=== PATIENT | female | born 1950 | race Caucasian/White ===

== ENCOUNTER 2018-02-13 09:52 | Emergency (ER) | payer BC, OTHER ==
--- NOTE | 2018-02-13 12:57 | ER ---
Nurse's Notes [facility] Name: Jayda Hernandez Age: 68 yrs Sex: Female : 1950 Arrival Date: 02/13/2018 Time: 09:54 Bed 24 Private MD: Dylon Wagner R Diagnosis: Acute upper respiratory infection, unspecified Presentation: 02/13 10:30 Presenting complaint: Patient states: Right ear pain, coughing, sneezing since Sunday aj1 Denies N/V/D. Transition of care: patient was not received from another setting of care. Onset of symptoms was February 11, 2018. Risk Assessment: Do you want to hurt yourself or someone else? Patient reports no desire to harm self or others. Initial Sepsis Screen: Does the patient meet any 2 criteria? No. Patient's initial sepsis screen is negative. Does the patient have a suspected source of infection? No. Patient's initial sepsis screen is negative. Care prior to arrival: None. 10:30 Method Of Arrival: Ambulatory aj1 10:30 Acuity: MACHO 4 aj1 Triage Assessment: 10:31 General: Appears in no apparent distress. comfortable, Behavior is calm, cooperative, aj1 appropriate for age. Pain: Complains of pain in right ear. Pain: Pain currently is 7 out of 10 on a pain scale. EENT: Reports ear pain. Neuro: Level of Consciousness is awake, alert, obeys commands. Cardiovascular: Patient's skin is warm and dry. Respiratory: Airway is patent Respiratory effort is even, unlabored, Respiratory pattern is regular, symmetrical. Historical: - Allergies: 10:31 erythromycin base; aj1 10:31 PENICILLINS; aj1 - Home Meds: 13:11 valsartan Oral [Active]; tl3 - PMHx: 10:31 Hypertension; aj1 - PSHx: 13:11 Cholecystectomy; Hysterectomy; cataract; tl3 - Immunization history:: Adult Immunizations unknown. - Social history:: Smoking status: unknown. - Ebola Screening: : No symptoms or risks identified at this time. Screenin:24 Abuse screen: Denies threats or abuse. Denies injuries from another. Nutritional sg screening: No deficits noted. Tuberculosis screening: No symptoms or risk factors identified. Never had TB. Fall Risk None identified. Assessment: 12:24 General: Appears in no apparent distress. comfortable, well groomed, well developed, sg well nourished, Behavior is calm, cooperative, appropriate for age. Pain: Complains of pain in right ear, sore throat Quality of pain is described as aching. Neuro: No deficits noted. Cardiovascular: Capillary refill is brisk in bilateral fingers Patient's skin is warm and dry. Chest pain is denied. Respiratory: Airway is patent Respiratory effort is even, unlabored, Respiratory pattern is regular, symmetrical, Breath sounds are clear. GI: No signs and/or symptoms were reported involving the gastrointestinal system. : No signs and/or symptoms were reported regarding the genitourinary system. EENT: Ear canal clear on right ear and left ear Nares are clear bilaterally Oral mucosa is moist. Throat is pink. Derm: Skin is pink, warm \T\ dry. Musculoskeletal: No signs and/or symptoms reported regarding the musculoskeletal system. Vital Signs: 10:31 BP 135 / 71; Pulse 75; Resp 18; Temp 99.4(O); Pulse Ox 97% ; Weight 63.5 kg (R); Height aj1 5 ft. 2 in. (157.48 cm) (R); Pain 7/10; 13:12 BP 138 / 82; Pulse 67; Resp 18; Pulse Ox 98% ; tl3 10:31 Body Mass Index 25.61 (63.50 kg, 157.48 cm) aj1 ED Course: 09:54 Patient arrived in ED. mr 09:54 Dylon Wagner MD is Private Physician. mr 10:31 Triage completed. aj1 10:31 Arm band placed on Patient placed in waiting room. aj1 11:35 David Crespo PA is PHCP. cp 11:35 Puma John MD is Attending Physician. cp 11:41 Luciano Blackwood LVN is Primary Nurse. em 12:02 Primary Nurse role handed off by Luciano Blackwood LVN sg 12:02 Carlos Ziegler, CAMILO is Primary Nurse. sg 12:15 Flu and/or RSV swab sent to lab. Strep swab sent to lab. sg 12:56 Dylon Wagner MD is Referral Physician. cp 13:10 No provider procedures requiring assistance completed. Patient did not have IV access tl3 during this emergency room visit. 13:11 Patient has correct armband on for positive identification. tl3 Administered Medications: No medications were administered Outcome: 12:57 Discharge ordered by . chaka 13:09 Discharged to home ambulatory. tl3 13:09 Condition: stable 13:09 Discharge instructions given to patient, Instructed on discharge instructions, follow up and referral plans. medication usage, good handwashing, fluid intake and fever control Demonstrated understanding of instructions, follow-up care, medications, Prescriptions given X 1. 13:12 Patient left the ED. tl3 Signatures: Gertrude Last RN RN aj1 Carlos Ziegler RN Mary Jo Horvath Edgar, CALL PERSON CALL PERSON David Harding, Courtney Soto cp, RN RN tl3
--- NOTE | 2018-02-13 12:58 | EDPHYS ---
Physician Documentation [facility] Name: Jayda Hernandez Age: 68 yrs Sex: Female : 1950 Arrival Date: 02/13/2018 Time: 09:54 Bed 24 Private MD: Dylon Wagner R ED Physician Puma John HPI: 02/13 12:10 This 68 yrs old Female presents to ER via Ambulatory with complaints of cp Cough, Ear Pain. 12:10 The patient or guardian reports cough, that is intermittent. Onset: The cp symptoms/episode began/occurred 2 day(s) ago. Severity of symptoms: in the emergency department the symptoms are unchanged, despite home interventions. Associated signs and symptoms: Pertinent positives: earache, sore throat, Pertinent negatives: chest pain, diarrhea, fever, vomiting. Historical: - Allergies: 10:31 erythromycin base; aj1 10:31 PENICILLINS; aj1 - Home Meds: 13:11 valsartan Oral [Active]; tl3 - PMHx: 10:31 Hypertension; aj1 - PSHx: 13:11 Cholecystectomy; Hysterectomy; cataract; tl3 - Immunization history:: Adult Immunizations unknown. - Social history:: Smoking status: unknown. - Ebola Screening: : No symptoms or risks identified at this time. ROS: 12:15 Constitutional: Negative for body aches, chills, fever, poor PO intake. cp 12:15 Eyes: Negative for injury, pain, redness, and discharge. cp 12:15 ENT: Positive for ear pain, sore throat, Negative for drainage from ear(s), sinus congestion, sinus pain, difficulty swallowing, difficulty handling secretions. 12:15 Respiratory: Positive for cough, with no reported sputum, Negative for shortness of breath, wheezing. 12:15 Abdomen/GI: Negative for abdominal pain, vomiting, diarrhea, constipation. 12:15 Skin: Negative for cellulitis, rash. 12:15 Neuro: Negative for dizziness, headache, weakness. 12:15 All other systems are negative. Exam: 12:20 Constitutional: The patient appears in no acute distress, alert, awake, non-toxic, well cp developed, well nourished. 12:20 Head/Face: Normocephalic, atraumatic. cp 12:20 Eyes: Periorbital structures: appear normal, Conjunctiva: normal, no exudate, no injection, Sclera: no appreciated abnormality, Lids and lashes: appear normal, bilaterally. 12:20 ENT: External ear(s): are unremarkable, Ear canal(s): are normal, clear, TM's: bulging, is not appreciated, bilaterally, dullness, bilaterally, erythema, is not appreciated, bilaterally, Nose: is normal, Mouth: Lips: moist, Oral mucosa: pink and intact, moist, Posterior pharynx: Airway: no evidence of obstruction, patent, Tonsils: are normal in appearance, Uvula: midline, swelling, is not appreciated, erythema, that is mild, exudate, is not appreciated. 12:20 Neck: ROM/movement: is normal, is supple, without pain, no range of motions limitations, no meningismus, no nuchal rigidity. 12:20 Chest/axilla: Inspection: normal, Palpation: is normal, no crepitus, no tenderness. 12:20 Cardiovascular: Rate: normal, Rhythm: regular. 12:20 Respiratory: the patient does not display signs of respiratory distress, Respirations: normal, no use of accessory muscles, no retractions, no splinting, no tachypnea, labored breathing, is not present, Breath sounds: are clear throughout, no decreased breath sounds, no stridor, no wheezing. 12:20 Abdomen/GI: Exam negative for discomfort, distension, guarding, Inspection: abdomen appears normal. 12:20 Skin: cellulitis, is not appreciated, no rash present. Vital Signs: 10:31 BP 135 / 71; Pulse 75; Resp 18; Temp 99.4(O); Pulse Ox 97% ; Weight 63.5 kg (R); Height aj1 5 ft. 2 in. (157.48 cm) (R); Pain 7/10; 13:12 BP 138 / 82; Pulse 67; Resp 18; Pulse Ox 98% ; tl3 10:31 Body Mass Index 25.61 (63.50 kg, 157.48 cm) aj1 MDM: 11:35 Patient medically screened. cp 12:30 Differential Diagnosis: Bronchitis Influenza Upper Respiratory Infection Sinusitis cp Pharyngitis Pneumonia. 12:55 Data reviewed: vital signs, nurses notes, lab test result(s), and as a result, I will cp discharge patient. 12:55 Counseling: I had a detailed discussion with the patient and/or guardian regarding: the cp historical points, exam findings, and any diagnostic results supporting the discharge/admit diagnosis, lab results, to return to the emergency department if symptoms worsen or persist or if there are any questions or concerns that arise at home. Special discussion: I discussed with the patient/guardian that the patient's current presentation does not indicate dosing of antibiotics. They should follow-up with their primary care provider and return if the symptoms persist or progress. 02/13 12:04 Order name: Influenza Screen (a \T\ B); Complete Time: 12:50 cp 02/13 12:50 Interpretation: Reviewed. cp 02/13 12:04 Order name: Strep; Complete Time: 12:40 cp 02/13 12:40 Interpretation: Reviewed. cp 02/13 12:35 Order name: Throat Culture EDMS Administered Medications: No medications were administered Disposition: 02/14 09:32 Co-signature as Attending Physician, Puma John MD I agree with the assessment and kdr plan of care. Disposition: 02/13/18 12:57 Discharged to Home. Impression: Acute upper respiratory infection, unspecified. - Condition is Stable. - Discharge Instructions: Upper Respiratory Infection, Adult. - Prescriptions for Tessalon Perles 100 mg Oral Capsule - take 1 capsule by ORAL route every 8 hours As needed; 15 capsule. - Medication Reconciliation Form, Thank You Letter, Antibiotic Education, Prescription Opioid Use form. - Follow up: Dylon Wagner MD; When: 2 - 3 days; Reason: Recheck today's complaints. - Problem is new. - Symptoms have improved. Signatures: Dispatcher [employer] EDMS Gertrude Last RN RN aj1 Puma John MD MD [facility] David Crespo PA PA cp Courtney Jacob RN RN tl3 Corrections: (The following items were deleted from the chart) 02/13 13:12 12:57 02/13/2018 12:57 Discharged to Home. Impression: Acute upper respiratory tl3 infection, unspecified. Condition is Stable. Forms are Medication Reconciliation Form, Thank You Letter, Antibiotic Education, Prescription Opioid Use. Follow up: Dylon Wagner; When: 2 - 3 days; Reason: Recheck today's complaints. Problem is new. Symptoms have improved. cp
[2018-02-13 13:20] VITALS: TEMP 99.4
[2018-02-13 13:21] VITALS: BP 138/82; O2SAT 98
== END 2018-02-13 13:12 | disposition home or self-care (01) ==
LOC: ER 09:52
DX: J06.9 Acute upper respiratory infection, unspecified (principal); I10 Essential (primary) hypertension; Z79.899 Other long term (current) drug therapy
CPT/HCPCS: 87070; 87081; 87804; 99283

== ENCOUNTER 2018-06-22 15:30 | Emergency (ER) | payer BC, OTHER ==
--- NOTE | 2018-06-22 16:17 | RAD REPORT ---
EXAM DESCRIPTION: Damien Moffett (2 Views)06/22/2018 4:08 pm CLINICAL HISTORY: Cough COMPARISON: 2017 FINDINGS: The lungs appear clear of acute infiltrate. The heart is mildly to moderately enlarged IMPRESSION: No acute abnormalities displayed
--- NOTE | 2018-06-22 16:27 | EDPHYS ---
Physician Documentation [facility] Name: Jayda Hernandez Age: 68 yrs Sex: Female : 1950 Arrival Date: 06/22/2018 Time: 15:32 Bed 13 Private MD: ED Physician Rohan Macias HPI: 06/22 15:49 This 68 yrs old Female presents to ER via Ambulatory with complaints of Cough.[facility] 15:49 The patient or guardian reports cough. Onset: The symptoms/episode began/occurred jmm gradually, 1 week(s) ago. This is a 68 year old female with a history of htn that presents to the ED with complaints of cough, sore throat, right sided ear ache. Patient states symptoms began 1 week ago. Patient is currently taking robitussin with no relief of cough. Patient denies fever. . Historical: - Allergies: 15:43 erythromycin base; sg 15:43 PENICILLINS; sg - Home Meds: 15:45 valsartan Oral [Active]; Mucinex DM oral oral [Active]; rb1 - PMHx: 15:43 Hypertension; sg - PSHx: 15:43 Cholecystectomy; Hysterectomy; cataract; sg - Immunization history:: Adult Immunizations up to date. - Social history:: Smoking status: Patient/guardian denies using tobacco. - Ebola Screening: : Patient negative for fever greater than or equal to 101.5 degrees Fahrenheit, and additional compatible Ebola Virus Disease symptoms Patient denies exposure to infectious person Patient denies travel to an Ebola-affected area in the 21 days before illness onset No symptoms or risks identified at this time. ROS: 15:49 Constitutional: Negative for fever, chills, and weight loss. jmm 15:49 ENT: Positive for ear pain, sore throat. 15:49 Respiratory: Positive for cough. 15:49 All other systems are negative. Exam: 15:49 Constitutional: This is a well developed, well nourished patient who is awake, alert, jmm and in no acute distress. Head/Face: atraumatic. Eyes: EOMI, no conjunctival erythema appreciated ENT: Moist Mucus Membranes Neck: Trachea midline, Supple Chest/axilla: Normal chest wall appearance and motion. Cardiovascular: Regular rate and rhythm. No edema appreciated 15:49 Abdomen/GI: Non distended, soft Back: Normal ROM Skin: General appearance color normal MS/ Extremity: Moves all extremities, no obvious deformities appreciated, no edema noted to the lower extremities Neuro: Awake and alert, normal gait Psych: Behavior is normal, Mood is normal, Patient is cooperative and pleasant 15:49 Respiratory: the patient does not display signs of respiratory distress, Respirations: normal, Breath sounds: are clear throughout. Vital Signs: 15:48 BP 162 / 67; Pulse 97; Resp 16 S; Temp 97.7; Pulse Ox 94% on R/A; Weight 79.83 kg; sg 16:35 BP 158 / 73; Pulse 89; Resp 17; Temp 97.9(O); Pulse Ox 96% on R/A; Pain 0/10; rb1 MDM: 15:49 Patient medically screened. [facility] 16:26 Data reviewed: vital signs, nurses notes. Counseling: I had a detailed discussion with [facility] the patient and/or guardian regarding: the historical points, exam findings, and any diagnostic results supporting the discharge/admit diagnosis, radiology results, the need for outpatient follow up, to return to the emergency department if symptoms worsen or persist or if there are any questions or concerns that arise at home. 16:26 ED course: Patient is alert and non toxic in appearance in the ED. No signs of resp [facility] distress appreciated. patient prescribed oral steroids and advised to follow up with Dr. Wagner next week for reevaluation. Patient understood and agrees with the plan of care. . 06/22 15:49 Order name: Chest Pa And Lat (2 Views) XRAY; Complete Time: 16:22 [facility] Administered Medications: No medications were administered Disposition: 22:12 Co-signature as Attending Physician, Rohan Macias MD Available for consultation at ps1 all times . Disposition: 06/22/18 16:26 Discharged to Home. Impression: Acute bronchitis. - Condition is Stable. - Discharge Instructions: Acute Bronchitis, Adult. - Prescriptions for Prednisone 20 mg Oral Tablet - take 3 tablet by ORAL route once daily for 5 days; 15 tablet. Albuterol Sulfate 90 mcg/actuation - inhale 1-2 puff by INHALATION route every 4-6 hours; 1 Inhaler. - Medication Reconciliation Form, Thank You Letter, Antibiotic Education, Prescription Opioid Use form. - Follow up: Private Physician; When: 2 - 3 days; Reason: Recheck today's complaints, Continuance of care, Re-evaluation by your physician. Signatures: Dispatcher [employer] EDCarlos Esqueda, RN RN sg Jw Abreu PA PA jmm Barber, Rebecca, RN RN rb1 Rohan Macias MD MD ps1 Corrections: (The following items were deleted from the chart) 16:43 16:26 06/22/2018 16:26 Discharged to Home. Impression: Acute bronchitis. Condition is rb1 Stable. Forms are Medication Reconciliation Form, Thank You Letter, Antibiotic Education, Prescription Opioid Use. Follow up: Private Physician; When: 2 - 3 days; Reason: Recheck today's complaints, Continuance of care, Re-evaluation by your physician. shandra
--- NOTE | 2018-06-22 16:27 | ER ---
Nurse's Notes [facility] Name: Jayda Hernandez Age: 68 yrs Sex: Female : 1950 Arrival Date: 06/22/2018 Time: 15:32 Bed 13 Private MD: Diagnosis: Acute bronchitis Presentation: 06/22 15:41 Presenting complaint: Patient states: Preethi had this sinus congestion and nasal drainage sg for going on a week or two now, reports having been seen by and given robitussin DM, took for three days with now changes, stopped taking that and took Mucinex DM for a day, just not getting any better, I think it may be a bronchitis or strep throat or something, Im pretty sure its not the flu. Transition of care: patient was not received from another setting of care. Onset of symptoms was June 22, 2018. Risk Assessment: Do you want to hurt yourself or someone else? Patient reports no desire to harm self or others. Initial Sepsis Screen: Does the patient meet any 2 criteria? No. Patient's initial sepsis screen is negative. Does the patient have a suspected source of infection? No. Patient's initial sepsis screen is negative. Care prior to arrival: None. 15:41 Method Of Arrival: Ambulatory sg 15:41 Acuity: MACHO 4 sg Historical: - Allergies: 15:43 erythromycin base; sg 15:43 PENICILLINS; sg - Home Meds: 15:45 valsartan Oral [Active]; Mucinex DM oral oral [Active]; rb1 - PMHx: 15:43 Hypertension; sg - PSHx: 15:43 Cholecystectomy; Hysterectomy; cataract; sg - Immunization history:: Adult Immunizations up to date. - Social history:: Smoking status: Patient/guardian denies using tobacco. - Ebola Screening: : Patient negative for fever greater than or equal to 101.5 degrees Fahrenheit, and additional compatible Ebola Virus Disease symptoms Patient denies exposure to infectious person Patient denies travel to an Ebola-affected area in the 21 days before illness onset No symptoms or risks identified at this time. Screenin:40 Abuse screen: Denies threats or abuse. Nutritional screening: No deficits noted. rb1 Tuberculosis screening: No symptoms or risk factors identified. Fall Risk None identified. Assessment: 15:40 General: Appears uncomfortable, Behavior is calm, cooperative, Denies fever. Pain: rb1 Denies pain. Neuro: Level of Consciousness is awake, alert, obeys commands, Oriented to person, place, time, situation. Cardiovascular: Capillary refill < 3 seconds is brisk in bilateral fingers. Respiratory: Reports cough that is productive, clear sputum Airway is patent Respiratory effort is even, unlabored, Respiratory pattern is regular, symmetrical. GI: No signs and/or symptoms were reported involving the gastrointestinal system. : No signs and/or symptoms were reported regarding the genitourinary system. 15:40 EENT: Reports nasal congestion right ear feels like it is draining.. Derm: Skin is rb1 pink, warm \T\ dry. 16:05 Reassessment: Pt. went to X-ray. rb1 16:35 Reassessment: Patient appears in no apparent distress at this time. No changes from rb1 previously documented assessment. Vital Signs: 15:48 BP 162 / 67; Pulse 97; Resp 16 S; Temp 97.7; Pulse Ox 94% on R/A; Weight 79.83 kg; sg 16:35 BP 158 / 73; Pulse 89; Resp 17; Temp 97.9(O); Pulse Ox 96% on R/A; Pain 0/10; rb1 ED Course: 15:32 Patient arrived in ED. as 15:39 Jw Abreu PA is PHCP. [facility] 15:39 Rohan Macias MD is Attending Physician. m 15:40 Patient has correct armband on for positive identification. Bed in low position. Call rb1 light in reach. Side rails up X 1. Pulse ox on. NIBP on. 15:43 Triage completed. sg 15:43 Arm band placed on. sg 15:58 Ciera Faulkner, RN is Primary Nurse. rb1 16:08 Chest Pa And Lat (2 Views) XRAY In Process Unspecified. EDMS 16:43 No provider procedures requiring assistance completed. Patient did not have IV access rb1 during this emergency room visit. Administered Medications: No medications were administered Outcome: 16:26 Discharge ordered by . [facility] 16:43 Patient left the ED. rb1 16:43 Discharged to home ambulatory. rb1 16:43 Condition: stable 16:43 Discharge instructions given to patient, Instructed on discharge instructions, follow up and referral plans. medication usage, Demonstrated understanding of instructions, follow-up care, medications, Prescriptions given X 2. Signatures: Dispatcher [employer] Carlos Tang RN RN sg Jw Abreu PA PA jmm Martinez, Amelia as Barber, Rebecca, RN RN rb1
[2018-06-22 16:48] VITALS: BP 162/67; TEMP 97.7; O2SAT 94
== END 2018-06-22 16:43 | disposition home or self-care (01) ==
LOC: ER 15:30
DX: J20.9 Acute bronchitis, unspecified (principal); I10 Essential (primary) hypertension; Z88.1 Allergy status to other antibiotic agents; Z88.0 Allergy status to penicillin
CPT/HCPCS: 71046; 99283

== ENCOUNTER 2019-06-14 10:54 | Emergency (ER) | payer BC, OTHER ==
--- OUTSIDE RECORDS SUMMARY | 2019-06-14 10:57 | XMS REPORT ---
:1950 Author Organization [employer] Care Team Providers Name Role Phone Denita Oscar Provider Role Unavailable Allergies, Adverse Reactions, Alerts Substance Reaction Event Type penicillin Info Not Available Drug Allergy Erythromycin Info Not Available Drug Allergy Problems Problem Type Condition Code Onset Dates Condition Statu s Problem Encounter for screening mammogram Z12.31 Active for breast cancer Problem Encounter for gynecological Z01.419 Active examination without abnormal finding Assessment Mixed incontinence N39.46 Active Assessment UTI (lower urinary tract infection) N39.0 Active Problem Adhesive capsulitis of right M75.01 Active shoulder Problem Lateral epicondylitis, right elbow M77.11 Active Problem Mixed incontinence N39.46 Active Problem History of hysterectomy for benign Z90.710 Active disease Problem 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
--- OUTSIDE RECORDS SUMMARY | 2019-06-14 10:57 | XMS REPORT ---
:1950 Author Organization [facility] t Address [address] [place] [address] Care Team Providers Name Role Phone Unavailable Unavailable Unavailable Problems Condition Condition Condition Status Onset Resolution Last Treatin g Comments Name Details Category Date Date Treatment Clinician Date Encounter Encounter Problem Active for for screening screening mammogram mammogram for breast for breast cancer cancer Encounter Encounter Problem Active for for gynecologic gynecologic al al examination examination without without abnormal abnormal finding finding Mixed Mixed Problem Active incontinenc incontinenc e e Adhesive Adhesive Problem Active capsulitis capsulitis of right of right shoulder shoulder Lateral Lateral Problem Active epicondylit epicondylit is, right is, right elbow elbow History of History of Problem Active hysterectom hysterectom y for y for benign benign disease disease Postmenopau Postmenopau Problem Active angelina angelina atrophic atrophic vaginitis vaginitis Pain in Pain in Problem Active joint of joint of right elbow right elbow Calcific Calcific Problem Active tendinitis tendinitis of right of right elbow elbow Allergies, Adverse Reactions, Alerts Allergy Name Allergy Status Severity Reaction(s) Onset Inactive Treat ing Comments Type Date Date Clinician penicillin Adverse Active Info Not Reaction Available Erythromycin Adverse Active Info Not Reaction Available Medications Ordered Filled Start Stop Current Ordering Indication Dosage Frequency Signature Comments Components Medication Medication Date Date Medication? Clinician (SIG) Name Name Clobex Clobex 2018-02 2019- No Denita 1 04-07 Celestina applicatio 00:00: 00:00 n 00 :00 Encounters Start End Encounter Admission Attending Care Care Encounter Date/Time Date/Time Type Type Clinicians Facility Department ID 2019-02-04 2019-02-04 Outpatient Linda Lizarragat [id number] 08:48:00 08:48:00 Specialty/U [facility] 2019-01-30 2019-01-30 Outpatient Ziat Ziat [id number] 09:26:00 09:26:00 Specialty/U Special[facility] 2019 2019 [place] [place] [id number] 09:47:00 09:47:00 Specialty/U Specialty[facility] 2019-01-27 2019-01-27 [place] 2 [id number] 10:30:00 10:30:00 Specialty/U Specialty/U [facility] Clinic
--- OUTSIDE RECORDS SUMMARY | 2019-06-14 10:57 | XMS REPORT ---
:1950 Author Organization [employer] Care Team Providers Name Role Phone Celestina Denita Provider Role Unavailable Allergies No Known Allergies Problems Problem Type Condition Code Onset Dates Condition Statu s Problem Encounter for screening mammogram Z12.31 Active for breast cancer Problem Encounter for gynecological Z01.419 Active examination without abnormal finding Problem Adhesive capsulitis of right M75.01 Active shoulder Problem Lateral epicondylitis, right elbow M77.11 Active Problem Mixed incontinence N39.46 Active Problem History of hysterectomy for benign Z90.710 Active disease Problem 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
--- OUTSIDE RECORDS SUMMARY | 2019-06-14 10:57 | XMS REPORT ---
:1950 Author Organization [employer] Care Team Providers Name Role Phone Denita Oscar Provider Role Unavailable Allergies No Known Allergies [...] Medications Medication Code Code Instructions Start End Status Dosage System Date Date Clobex [facility] [id number] 0.05 % Feb 04, Feb 14, Active 1 applicatio n Externally Twice 2018 2018 a day Results No Known Results Summary Purpose [employer] Submission
--- NOTE | 2019-06-14 12:10 | EDPHYS ---
Physician Documentation [facility] Name: Jayda Hernandez Age: 69 yrs Sex: Female : 1950 Arrival Date: 06/14/2019 Time: 11:02 Bed 13 Private MD: Dylon Wagner R ED Physician David Jacobson HPI: 06/13 12:18 This 69 yrs old Female presents to ER via Ambulatory with complaints of Ear la1 Pain. 12:18 The patient presents with pain. The complaints affect the right ear and left ear. la1 Onset: The symptoms/episode began/occurred 2 month(s) ago. Modifying factors: The symptoms are alleviated by nothing, the symptoms are aggravated by nothing. Associated signs and symptoms: Pertinent negatives: fever, lightheadedness, sore throat, tinnitus, vertigo, vomiting. Severity of symptoms: At their worst the symptoms were very mild. The patient has experienced a previous episode. pt reports that for the last 2 months she occasionally gets HERVE ear pain and a pain in the back of her head, was seen by PCP and told that she did not have infection. Pt reports she does not have the pain at this time and the pain is not severe, denies any other symptoms. . Historical: - Allergies: 11:26 erythromycin base; hb 11:26 PENICILLINS; hb - Home Meds: 11:26 Mucinex DM Oral [Active]; valsartan Oral [Active]; hb - PMHx: 11:26 Hypertension; hb - PSHx: 11:26 Cholecystectomy; Hysterectomy; cataract; hb - Immunization history:: Adult Immunizations up to date. - Social history:: Smoking status: Patient denies any tobacco usage or history of. ROS: 12:20 Constitutional: Negative for fever, chills, and weight loss, Eyes: Negative for injury, la1 pain, redness, and discharge. 12:20 Neck: Negative for injury, pain, and swelling, Cardiovascular: Negative for chest pain, palpitations, and edema, Respiratory: Negative for shortness of breath, cough, wheezing, and pleuritic chest pain, Abdomen/GI: Negative for abdominal pain, nausea, vomiting, diarrhea, and constipation, Back: Negative for injury and pain, MS/Extremity: Negative for injury and deformity, Skin: Negative for injury, rash, and discoloration. 12:20 ENT: Positive for HERVE ear pain, pain to back of head. 12:20 Neuro: Negative for altered mental status, dizziness, gait disturbance, hearing loss, loss of consciousness, numbness, seizure activity, speech changes, syncope, near syncope, tingling, tinnitus, tremor, visual changes, weakness, acute changes. Exam: 12:21 Constitutional: This is a well developed, well nourished patient who is awake, alert, la1 and in no acute distress. Head/Face: Normocephalic, atraumatic. Eyes: Pupils equal round and reactive to light, extra-ocular motions intact. Lids and lashes normal. Conjunctiva and sclera are non-icteric and not injected. ENT: Nares patent. No nasal discharge, no septal abnormalities noted. Tympanic membranes are normal and external auditory canals are clear. Oropharynx with no redness, swelling, or masses, exudates, or evidence of obstruction, uvula midline. Mucous membranes moist. Neck: Trachea midline Cardiovascular: Regular rate and rhythm with a normal S1 and S2. Respiratory: Lungs have equal breath sounds bilaterally, clear to auscultation Skin: Warm, dry with normal turgor. Neuro: Awake and alert, GCS 15, oriented to person, place, time, and situation. Cranial nerves II-XII grossly intact. Motor strength 5/5 in all extremities. Sensory grossly intact. Cerebellar exam normal. Normal gait. Vital Signs: 11:21 BP 137 / 79; Pulse 76; Resp 16; Temp 97.9; Pulse Ox 100% on R/A; Weight 71.21 kg; hb Height 5 ft. 2 in. (157.48 cm); Pain 0/10; 11:21 Body Mass Index 28.72 (71.21 kg, 157.48 cm) hb MDM: 11:37 Patient medically screened. [facility] 12:21 Data reviewed: vital signs, nurses notes, and as a result, I will discharge patient. la1 Data interpreted: Pulse oximetry: on room air is 100 %. Interpretation: normal. Counseling: I had a detailed discussion with the patient and/or guardian regarding: the need for outpatient follow up, a family practitioner, to return to the emergency department if symptoms worsen or persist or if there are any questions or concerns that arise at home. Special discussion: I discussed with the patient/guardian that the patient's current presentation does not indicate dosing of antibiotics. They should follow-up with their primary care provider and return if the symptoms persist or progress. ED course: no signs of infection on exam, pt not having the ear pain or GALLO at this time, no abnormal neurological findings on exam. Pt to FU with PCP. Administered Medications: No medications were administered Disposition: 06/14/19 12:09 Discharged to Home. Impression: Person with feared health complaint in whom no diagnosis is made. - Condition is Stable. - Discharge Instructions: General Headache Without Cause. - Medication Reconciliation Form, Thank You Letter form. - Follow up: Private Physician; When: 5 - 6 days; Reason: Recheck today's complaints, Continuance of care, Re-evaluation by your physician. Follow up: Emergency Department; When: As needed; Reason: Worsening of condition. - Problem is new. - Symptoms are unchanged. - Notes: Please follow up with your primary care doctor, you may need to see a specialist for your ear pain. Addendum: 06/16/2019 09:54 Co-signature as Attending Physician, David Jacobson MD I agree with the assessment and c gallo plan of care. Signatures: David Jacobson MD MD cha Attema, Lee, ANIMAL RESCUER-C ANIMAL RESCUER-Cla1 Yessy Phillip RN RN Patricia Vora RN RN ll1 Corrections: (The following items were deleted from the chart) 06/13 12:27 12:09 06/14/2019 12:09 Discharged to Home. Impression: Person with feared health ll1 complaint in whom no diagnosis is made. Condition is Stable. Forms are Medication Reconciliation Form, Thank You Letter, Antibiotic Education, Prescription Opioid Use. Follow up: Private Physician; When: 5 - 6 days; Reason: Recheck today's complaints, Continuance of care, Re-evaluation by your physician. Follow up: Emergency Department; When: As needed; Reason: Worsening of condition. Problem is new. Symptoms are unchanged. la1
--- NOTE | 2019-06-14 12:10 | ER ---
Nurse's Notes [facility] Name: Jayda Hernandez Age: 69 yrs Sex: Female : 1950 Arrival Date: 06/14/2019 Time: 11:02 Bed 13 Private MD: Dylon Wagner R Diagnosis: Person with feared health complaint in whom no diagnosis is made Presentation: 06/13 11:21 Chief complaint: Intermittent bilateral ear pain and 'head tenderness in the back of hb the head" x 2 weeks. Coronavirus screen: Proceed with normal triage. Ebola Screen: No symptoms or risks identified at this time. Initial Sepsis Screen: Does the patient meet any 2 criteria? No. Patient's initial sepsis screen is negative. Does the patient have a suspected source of infection? No. Patient's initial sepsis screen is negative. Risk Assessment: Do you want to hurt yourself or someone else? Patient reports no desire to harm self or others. Onset of symptoms was June 03, 2019. 11:21 Method Of Arrival: Ambulatory hb 11:21 Acuity: MACHO 4 hb Triage Assessment: 11:47 General: Appears in no apparent distress. Behavior is calm, cooperative. Pain: Denies hb pain. EENT: Reports intermittent bilateral ear pain. Neuro: Level of Consciousness is awake, alert, obeys commands, Oriented to person, place, time, situation. Cardiovascular: Capillary refill < 3 seconds Patient's skin is warm and dry. Respiratory: Airway is patent Respiratory effort is even, unlabored, Respiratory pattern is regular, symmetrical. GI: No signs and/or symptoms were reported involving the gastrointestinal system. : No signs and/or symptoms were reported regarding the genitourinary system. Derm: Skin is pink, warm \\T\\ dry. Musculoskeletal: No signs and/or symptoms reported regarding the musculoskeletal system. Historical: - Allergies: 11:26 erythromycin base; hb 11:26 PENICILLINS; hb - Home Meds: 11:26 Mucinex DM Oral [Active]; valsartan Oral [Active]; hb - PMHx: 11:26 Hypertension; hb - PSHx: 11:26 Cholecystectomy; Hysterectomy; cataract; hb - Immunization history:: Adult Immunizations up to date. - Social history:: Smoking status: Patient denies any tobacco usage or history of. Screenin:48 Abuse screen: Denies threats or abuse. Denies injuries from another. Nutritional hb screening: No deficits noted. Tuberculosis screening: No symptoms or risk factors identified. Fall Risk None identified. Assessment: 11:48 General: see triage assessment. hb 12:27 Pain: Denies pain. Neuro: Reports headache tenderness to right side of head. ll1 Vital Signs: 11:21 BP 137 / 79; Pulse 76; Resp 16; Temp 97.9; Pulse Ox 100% on R/A; Weight 71.21 kg; hb Height 5 ft. 2 in. (157.48 cm); Pain 0/10; 11:21 Body Mass Index 28.72 (71.21 kg, 157.48 cm) hb ED Course: 11:02 Patient arrived in ED. am2 11:02 Dylon Wagner MD is Private Physician. am2 11:22 Triage completed. hb 11:26 Arm band placed on. hb 11:28 Roberto Mcclure FNP-C [facility]. la1 11:28 David Jacobson MD is Attending Physician. la1 11:47 Patricia Vora, CAMILO is Primary Nurse. ll1 11:48 Patient has correct armband on for positive identification. Call light in reach. Side hb rails up X 1. 12:26 No provider procedures requiring assistance completed. Patient did not have IV access ll1 during this emergency room visit. Administered Medications: No medications were administered Outcome: 12:09 Discharge ordered by . la1 12:26 Discharged to home ambulatory. ll1 12:26 Condition: stable 12:26 Discharge instructions given to patient, Instructed on discharge instructions, follow up and referral plans. Demonstrated understanding of instructions, follow-up care. 12:27 Patient left the ED. ll1 Signatures: Roberto Mcclure FNP-C FNP-Cla1 Yessy Phillip RN RN Meenu Sousa am2 Patricia Vora RN RN ll1
[2019-06-14 12:38] VITALS: BP 137/79; TEMP 97.9; O2SAT 100
== END 2019-06-14 12:27 | disposition home or self-care (01) ==
LOC: ER 10:54
DX: Z71.1 Person with feared health complaint in whom no diagnosis is made (principal); I10 Essential (primary) hypertension; Z88.0 Allergy status to penicillin; Z88.1 Allergy status to other antibiotic agents
CPT/HCPCS: 99281

== ENCOUNTER 2019-08-30 08:46 | Emergency (ER) | payer OTHER ==
--- OUTSIDE RECORDS SUMMARY | 2019-08-30 08:48 | XMS REPORT | Continuity of Care Document ---
:1950 Author Organization [facility] t Address [facility] [address] [place] [address] Care Team Providers Name Role Phone Unavailable Unavailable Unavailable Problems Condition Condition Condition Status Onset Resolution Last Treating Co mments Source Name Details Category Date Date Treatment Clinician Date Encounter Encounter Problem Active [facility] - screening screening Musa miguel mammogram mammogram l for breast for breast Ou tpati cancer cancer ent Clinics Encounter Encounter Problem [facility] - gynecologi gynecologi Me moria tiffany tiffany l examinatio examinatio Ou tpati n without n without ent abnormal abnormal Clinic s finding finding Mixed Mixed Problem Active [facility] incontinen incontinen [facility] - ce ce [facility] Clinics Adhesive Adhesive Problem Active [facility] capsulitis capsulitis [facility] - of right of right Mem[facility] a shoulder shoulder l Outpati ent Clinics Lateral Lateral Problem Active [facility] epicondyli epicondyli [facility] - tis, right tis, right Me moria elbow elbow l Outpati ent Clinics History of History of Problem Active [facility] hysterecto hysterecto [facility] - my for my for [facility] benign benign l disease disease Outpati ent Clinics Postmenopa Postmenopa Problem Active [facility] usal usal [facility] - atrophic atrophic [facility] a vaginitis vaginitis l Outpati ent Clinics Pain in Pain in Problem Active [facility] joint of joint of [facility] - right right [facility] elbow elbow l Outpati ent Clinics Calcific Calcific Problem Active [facility] tendinitis tendinitis [facility] - of right of right Memori a elbow elbow l Outpati ent Clinics Allergies, Adverse Reactions, Alerts Allergy Allergy Status Severity Reaction(s) Onset Inactive Treating Comm ents Source Name Type Date Date Clinician penicill Adverse Active Info Not [facility] Reaction Available [facility] Erythrom Adverse Active Info Not [facility] ycin Reaction Available [facility] Medications Ordered Filled Start Stop Current Ordering Indication Dosage Frequency Signature Comments Components Source Medication Medication Date Date Medication? Clinician (SIG) Name Name Wilfredo Villalobos 2018-02- No Denita [address] [facility] 04-07 Celestina applicatio Osman s - 00:00: 00:00 n Memoria 00 :00 [facility] ent Clinics Procedures This patient has no known procedures. Encounters Start End Encounter Admission Attending Care Care Encounter Source Date/Time Date/Time Type Type Clinicians Facility Department ID 2019-02-04 2019-02-04 Outpatient Zia Mckeon [id number] [facility] 08:48:00 08:48:00 t Specialty/U [facility] - Specialty rology [facility]ori a [facility] 2019-01-30 2019-01-30 Outpatient Zia Mckeon [id number] [facility] 09:26:00 09:26:00 t Specialty/U [facility] - Specialty rology Memori a [facility] 2019 2019 Outpatient Zia Mckeon [id number] [facility] 09:47:00 09:47:00 t Specialty/U [facility] - Specialty rology Memori a [facility] 2019-01-27 2019-01-27 Outpatient Zia Mckeon [id number] [facility] [address] 10:30:00 10:30:00 t Specialty/U [facility] - Specialty rology Memori a /[facility]rology Clinic [facility] Results This patient has no known results.
--- NOTE | 2019-08-30 10:34 | RAD REPORT ---
EXAM DESCRIPTION: RAD - Chest Pa And Lat (2 Views) - 08/30/2019 10:06 am CLINICAL HISTORY: COUGH, shortness of breath COMPARISON: Two view chest June 2018 and January 2017 TECHNIQUE: Frontal and lateral views of the chest were obtained. FINDINGS: The lungs are slightly under inflated compared to prior studies. Lateral view has slight m otion degradation that limits detail. No acute right lung parenchymal process seen. Left base is some what hazy in opacification. This may be the affects of the low lung volumes. Left base pneumonia is u nlikely but not entirely excluded. Heart size is normal and central vasculature is within normal limits. No pleural effusion or pneumot horax seen. No acute bony finding noted. No aortic abnormality. IMPRESSION: Shallow inspiration exam showing no acute cardiopulmonary finding. When adjusting for the lower lung volumes, chest does not appear significantly different from compari son.
--- NOTE | 2019-08-30 10:45 | ER ---
Nurse's Notes [facility] Name: Jayda Hernandez Age: 69 yrs Sex: Female : 1950 Arrival Date: 08/30/2019 Time: 08:48 Bed 5 Private MD: Diagnosis: Bronchitis, not specified as acute or chronic;Possible early pneumonia Presentation: 08/29 09:12 Chief complaint: Patient states: Sunday was doing yard work and smelled some burnt iw trash, has had cough and sore throat since then, no fever, no SOB. Coronavirus screen: Proceed with normal triage. Patient reports a cough. Patient denies shortness of breath or difficulty breathing. Patient denies measured and/or subjective temperature greater than 100.4F prior to today's visit. Patient denies travel on a cruise ship or to a country the [facility] currently lists as an affected area. Patient denies contact with known and/or suspected case of COVID-19. Ebola Screen: Patient negative for fever greater than or equal to 101.5 degrees Fahrenheit, and additional compatible Ebola Virus Disease symptoms Patient denies exposure to infectious person. Patient denies travel to an Ebola-affected area in the 21 days before illness onset. No symptoms or risks identified at this time. Initial Sepsis Screen: Does the patient meet any 2 criteria? No. Patient's initial sepsis screen is negative. Does the patient have a suspected source of infection? No. Patient's initial sepsis screen is negative. Risk Assessment: Do you want to hurt yourself or someone else? Patient reports no desire to harm self or others. Onset of symptoms was August 26, 2019. 09:12 Method Of Arrival: Ambulatory iw 09:12 Acuity: MACHO 4 iw Triage Assessment: 09:15 General: Appears in no apparent distress. uncomfortable, Behavior is calm, cooperative, bp appropriate for age. Pain: Complains of pain in SORE THROAT. EENT: No deficits noted. Neuro: No deficits noted. Cardiovascular: No deficits noted. Respiratory: Reports cough that is. GI: No signs and/or symptoms were reported involving the gastrointestinal system. : No signs and/or symptoms were reported regarding the genitourinary system. Derm: No deficits noted. Musculoskeletal: No deficits noted. Historical: - Allergies: 09:14 erythromycin base; iw 09:14 PENICILLINS; iw - PMHx: 09:14 Hypertension; Hypothyroidism; iw - PSHx: 09:14 Cholecystectomy; Hysterectomy; cataract; iw - Immunization history:: Adult Immunizations not up to date. - Social history:: Smoking status: Patient denies any tobacco usage or history of. - Family history:: not pertinent. - Hospitalizations: : No recent hospitalization is reported. Screenin:15 Abuse screen: Denies threats or abuse. Denies injuries from another. Nutritional bp screening: No deficits noted. Tuberculosis screening: No symptoms or risk factors identified. Fall Risk None identified. Assessment: 09:15 General: SEE TRIAGE NOTE. Respiratory: Airway is patent Respiratory effort is even, bp unlabored, Breath sounds are clear bilaterally. EENT: Throat is clear. 10:01 Reassessment: PT TO XRAY. bp Vital Signs: 09:12 BP 130 / 85; Pulse 84; Resp 16; Temp 97.7; Pulse Ox 97% on R/A; Weight 71.21 kg; Height iw 5 ft. 2 in. (157.48 cm); 10:00 BP 146 / 79; Pulse 94; Resp 16; Pulse Ox 95% ; bp 09:12 Body Mass Index 28.72 (71.21 kg, 157.48 cm) iw ED Course: 08:48 Patient arrived in ED. as 08:54 Martir Dumont MD is Attending Physician. rn 09:00 Dax Olsen, CAMILO is Primary Nurse. bp 09:13 Triage completed. iw 09:15 Arm band placed on. bp 09:15 Patient has correct armband on for positive identification. Bed in low position. Call bp light in reach. Side rails up X2. 10:05 XRAY Chest Pa And Lat (2 Views) In Process Unspecified. EDMS 10:51 No provider procedures requiring assistance completed. Patient did not have IV access iw during this emergency room visit. Administered Medications: No medications were administered Outcome: 10:44 Discharge ordered by . rn 10:51 Discharged to home ambulatory. iw 10:51 Condition: good 10:51 Discharge instructions given to patient, Instructed on discharge instructions, follow up and referral plans. medication usage, Demonstrated understanding of instructions, follow-up care, medications, Prescriptions given X 2. 10:53 Patient left the ED. iw Signatures: Dispatcher [employer] EDMS Myriam Hines as Agnieszka Zamarripa, RN RN Martir Calvert MD MD rn Dax Olsen, RN RN bp
--- NOTE | 2019-08-30 10:46 | EDPHYS ---
Physician Documentation [facility] Name: Jayda Hernandez Age: 69 yrs Sex: Female : 1950 Arrival Date: 08/30/2019 Time: 08:48 Bed 5 Private MD: ED Physician Martir Dumont HPI: 08/29 09:03 This 69 yrs old Female presents to ER via Unassigned with complaints of rn Cough, Sore Throat. 09:03 The patient or guardian reports cough, described as mild, with no sputum. rn 09:04 Onset: The symptoms/episode began/occurred 3 day(s) ago. Severity of symptoms: At their rn worst the symptoms were mild, in the emergency department the symptoms are unchanged. Modifying factors: The symptoms are alleviated by nothing, the symptoms are aggravated by nothing. The patient has experienced similar episodes in the past. The patient has not recently seen a physician. Reports cough/sore throat/runny nose, states "frequent bronchitis", attributes symptoms to [place] dust cloud, denies sob, reports no fever and no known exposures. No hemoptysis. No asthma or smoking history. . Historical: - Allergies: 09:14 erythromycin base; iw 09:14 PENICILLINS; iw - PMHx: 09:14 Hypertension; Hypothyroidism; iw - PSHx: 09:14 Cholecystectomy; Hysterectomy; cataract; iw - Immunization history:: Adult Immunizations not up to date. - Social history:: Smoking status: Patient denies any tobacco usage or history of. - Family history:: not pertinent. - Hospitalizations: : No recent hospitalization is reported. ROS: 09:04 Constitutional: Negative for fever, chills, and weight loss, Eyes: Negative for injury, rn pain, redness, and discharge, ENT: + sore throat Neck: Negative for injury, pain, and swelling, Cardiovascular: Negative for chest pain, palpitations, and edema, Respiratory: + cough, neg for sob Abdomen/GI: Negative for abdominal pain, nausea, vomiting, diarrhea, and constipation, MS/Extremity: Negative for injury and deformity, Skin: Negative for injury, rash, and discoloration, Neuro: Negative for headache, weakness, numbness, tingling, and seizure. Exam: 09:04 Constitutional: This is a well developed, well nourished patient who is awake, alert, rn and in no acute distress. Head/Face: Normocephalic, atraumatic. ENT: No stridor, no cervical LAD Neck: Trachea midline, no thyromegaly or masses palpated, and no cervical lymphadenopathy. Supple, full range of motion without nuchal rigidity, or vertebral point tenderness. No Meningismus. Cardiovascular: Regular rate and rhythm. No pulse deficits. Respiratory: Speaking full sentences. No increased work of breathing, no retractions or nasal flaring. Skin: Warm, dry MS/ Extremity: Pulses equal, no cyanosis. Neuro: Awake and alert, GCS 15, oriented to person, place, time, and situation. Motor strength 5/5 in all extremities. Normal gait. Vital Signs: 09:12 BP 130 / 85; Pulse 84; Resp 16; Temp 97.7; Pulse Ox 97% on R/A; Weight 71.21 kg; Height iw 5 ft. 2 in. (157.48 cm); 10:00 BP 146 / 79; Pulse 94; Resp 16; Pulse Ox 95% ; bp 09:12 Body Mass Index 28.72 (71.21 kg, 157.48 cm) iw MDM: 08:55 Patient medically screened. rn 09:03 ED course: Offered and recommended COVID testing, patient declines. . rn 10:41 Differential Diagnosis: Upper Respiratory Infection Viral Syndrome Pneumonia. Data rn reviewed: vital signs, nurses notes, radiologic studies, plain films, and as a result, I will discharge patient. Counseling: I had a detailed discussion with the patient and/or guardian regarding: the historical points, exam findings, and any diagnostic results supporting the discharge/admit diagnosis, radiology results, the need for outpatient follow up, to return to the emergency department if symptoms worsen or persist or if there are any questions or concerns that arise at home. Special discussion: I discussed with the patient/guardian in detail that at this point there is no indication for admission to the hospital. It is understood, however, that if the symptoms persist or worsen the patient needs to return immediately for re-evaluation. ED course: Pt with questionable left lung base opacification, most likely due to under inflation of lungs on CXR, will dc home with abx for possible early infiltrate, and return precautions. Pt declined COVID testing.. 08/29 09:01 Order name: XRAY Chest Pa And Lat (2 Views); Complete Time: 10:36 rn Administered Medications: No medications were administered Disposition: 08/30/19 10:44 Discharged to Home. Impression: Bronchitis, not specified as acute or chronic, Possible early pneumonia. - Condition is Stable. - Discharge Instructions: Acute Bronchitis, Adult. - Prescriptions for Doxycycline Monohydrate 100 mg Oral Tablet - take 1 tablet by ORAL route every 12 hours for 10 days; 20 tablet. Guaifenesin AC 10- 100 mg/5 mL Oral Liquid - take 10 milliliter by ORAL route every 4 hours As needed; 240 milliliter. - Medication Reconciliation Form, Thank You Letter, Antibiotic Education, Prescription Opioid Use form. - Follow up: Private Physician; When: As needed; Reason: Recheck today's complaints, Re-evaluation by your physician. - Problem is new. - Symptoms are unchanged. Signatures: Dispatcher [employer] Agnieszka Neal RN RN iw Nieto, Roman, MD MD furnace repair mechanic: (The following items were deleted from the chart) 10:53 10:44 08/30/2019 10:44 Discharged to Home. Impression: Bronchitis, not specified as iw acute or chronic; Possible early pneumonia. Condition is Stable. Forms are Medication Reconciliation Form, Thank You Letter, Antibiotic Education, Prescription Opioid Use. Follow up: Private Physician; When: As needed; Reason: Recheck today's complaints, Re-evaluation by your physician. Problem is new. Symptoms are unchanged. rn
[2019-08-30 11:14] VITALS: TEMP 97.7
[2019-08-30 11:15] VITALS: BP 146/79; O2SAT 95
== END 2019-08-30 10:53 | disposition home or self-care (01) ==
LOC: ER 08:46
DX: J40 Bronchitis, not specified as acute or chronic (principal); I10 Essential (primary) hypertension; Z88.0 Allergy status to penicillin; Z88.3 Allergy status to other anti-infective agents
CPT/HCPCS: 71046; 99283

== ENCOUNTER 2022-10-05 08:40 | Emergency (ER) | payer OTHER ==
[2022-10-05 09:27] LABS: Absolute Lymphocytes (CBC) 1.2 K/uL (0.7-4.9); Lymphocytes % 11.1 % (15.3-44.8); MCV 92.1 fL (80-100); MPV 7.3 fL (7.6-11.3); Platelets 313 thou/uL (152-406); RBC Red Blood Cell Count 4.23 M/uL (3.86-4.86)
[2022-10-05 10:02] LABS: Albumin 3.2 g/dL (3.4-5.0); Bilirubin Total 0.5 mg/dL (0.2-1.0); Potassium 3.4 mEq/L (3.5-5.1)
--- NOTE | 2022-10-05 11:21 | RAD REPORT ---
EXAM DESCRIPTION: CT - Abdomen Pelvis W Contrast - 10/05/2022 10:26 am CLINICAL HISTORY: ABD PAIN COMPARISON: No comparisons TECHNIQUE: Thin cut axial CT imaging of the abdomen and pelvis was performed following intravenous a dministration of 100 mL Isovue 300. Multiplanar reformats were generated and reviewed. All CT scans are performed using dose optimization technique as appropriate and may include automated exposure control or mA/KV adjustment according to patient size. FINDINGS: No suspicious findings in the lung bases. Left basilar segmental atelectasis. The liver, spleen, and pancreas show no suspicious findings. Status post cholecystectomy. Symmetric renal function is seen with no hydronephrosis or suspicious renal mass. Bilateral parapelvi c renal cysts. No dilated bowel loops. Focal wall thickening with submucosal edema along the mid to distal sigmoid c olon with adjacent fat stranding. No appreciable fluid collections. No free air, or free fluid. Subtl e patchy fat stranding throughout the mesenteric, nonspecific, and could be related to the ongoing in flammatory process. No hernia, mass or bulky lymphadenopathy. The urinary bladder is without signific ant finding. No suspicious bony findings. IMPRESSION: Sequelae of acute diverticulitis of the mid to distal sigmoid colon. No evidence of complications. Incidental findings as above. The findings were communicated to Lupe Moss on 10/05/2022 at 11:17 hours.
[2022-10-05 11:46] LABS: Calcium Oxalate Crystals- Ur Few /HPF (None Seen); Specific Gravity 1.029 (1.005-1.030); Urine Bacteria <20 /HPF (<20); Urine Bilirubin NEGATIVE (Negative); Urine Blood Trace (Negative); Urine Clarity Extremely Turbid (Clear); Urine Color Light-Orange (Yellow); Urine Glucose NEGATIVE (Negative); Urine Mucus 1+ /HPF (None Seen); Urine Protein 1+ (Negative); Urine Urobilinogen Normal (Normal); Urine pH 5.5 (5.0-7.0)
--- NOTE | 2022-10-05 12:03 | EDPHYS ---
Physician Documentation [facility] Name: Jayda Hernandez Age: 72 yrs Sex: Female : 1950 Arrival Date: 10/05/2022 Time: 08:40 Bed 16 Private MD: FRANKO Physician David Jacobson HPI: 10/05 08:57 This 72 yrs old Female presents to ER via Unassigned with complaints of Abdominal Pain. sb4 08:57 The patient presents with abdominal pain in the left lower quadrant. Onset: The sb4 symptoms/episode began/occurred 2 day(s) ago. The symptoms do not radiate. Associated signs and symptoms: none. The symptoms are described as intermittent, sharp. Modifying factors: The symptoms are alleviated by nothing, the symptoms are aggravated by pressure, touching the area. The patient has not experienced similar symptoms in the past. patient states she ate chips on Sunday night and feels like one of them is stuck in her intestine. she reports intermittent sharp pain in her LLQ. she states she has had diverticulitis before and this feels different because she is not nauseated and is having regular bowel movements. Historical: - Allergies: 08:58 PENICILLINS; bp 08:58 erythromycin base; bp - Home Meds: 08:58 Mucinex DM Oral [Active]; valsartan Oral [Active]; bp - PMHx: 08:58 Hypertension; Hypothyroidism; bp - Immunization history:: Adult Immunizations up to date. - Social history:: Smoking status: Patient denies any tobacco usage or history of. ROS: 08:57 Constitutional: Negative for fever, chills, and weight loss. sb4 08:57 Abdomen/GI: Positive for abdominal pain, Negative for nausea, vomiting, and diarrhea. 08:57 All other systems are negative. Exam: 08:57 Constitutional: This is a well developed, well nourished patient who is awake, alert, sb4 and in no acute distress. Head/Face: Normocephalic, atraumatic. Eyes: Extra-ocular motions intact. Periorbital areas with no swelling, redness, or edema. ENT: Mucous membranes moist. Cardiovascular: Regular rate and rhythm with a normal S1 and S2. Respiratory: Lungs have equal breath sounds bilaterally, clear to auscultation and percussion. No rales, rhonchi or wheezes noted. No increased work of breathing, no retractions or nasal flaring. Skin: Warm, dry with normal turgor. Normal color with no rashes, no lesions, and no evidence of cellulitis. MS/ Extremity: Pulses equal, no cyanosis. Neurovascular intact. Full, normal range of motion. 08:57 Abdomen/GI: Inspection: abdomen appears normal, Bowel sounds: normal, in all quadrants, Palpation: soft, in all quadrants, mild abdominal tenderness, in the left lower quadrant. Vital Signs: 08:57 BP 178 / 79; Pulse 81; Resp 16; Temp 98; Pulse Ox 94% ; bp 10:40 BP 167 / 75; Pulse 73; Resp 17 S; Pulse Ox 93% on R/A; kc6 11:32 BP 179 / 72; Pulse 89; Resp 17 S; Pulse Ox 95% on R/A; kc6 MDM: 08:42 Patient medically screened. sb4 08:57 Differential diagnosis: bowel obstruction, diverticulitis, non-specific abd pain, sb4 colitis. 12:00 Data reviewed: vital signs, nurses notes, lab test result(s), radiologic studies, and sb4 as a result, I will discharge patient. Discussion of test interpretation with radiology: I had a discussion with radiology regarding a test interpretation. discussed the findings of acute uncomplicated sigmoid diverticulitis. Care significantly affected by the following chronic conditions: Hypertension. Counseling: I had a detailed discussion with the patient and/or guardian regarding the historical points, exam findings, and any diagnostic results supporting the discharge/admit diagnosis, the presence of at least one elevated blood pressure reading (>120/80) during this emergency department visit, lab results, radiology results, to return to the emergency department if symptoms worsen or persist or if there are any questions or concerns that arise at home. 10/05 08:56 Order name: CBC with Diff; Complete Time: 09:30 sb4 10/05 08:56 Order name: CMP; Complete Time: 10:03 sb4 10/05 08:56 Order name: Lipase; Complete Time: 10:03 sb4 10/05 11:20 Order name: Urinalysis w/ reflexes; Complete Time: 11:58 kc6 10/05 11:51 Order name: Urine Culture EDMS 10/05 08:56 Order name: CT Abd/Pelvis - IV Contrast Only; Complete Time: 11:22 sb4 10/05 08:56 Order name: IV Saline Lock; Complete Time: 09:17 sb4 10/05 08:56 Order name: Labs collected and sent; Complete Time: : sb4 Administered Medications: No medications were administered Disposition Summary: 10/05/22 12:02 Discharge Ordered Location: Home sb4 Problem: new sb4 Symptoms: are unchanged sb4 Condition: Stable sb4 Diagnosis - Diverticulitis of large intestine without perforation or abscess without bleeding sb4 - Acute cystitis sb4 Followup: sb4 - With: Private Physician - When: As needed - Reason: Recheck today's complaints, Continuance of care, Re-evaluation by your physician Discharge Instructions: - Discharge Summary Sheet sb4 - Diverticulitis, [id number] sb4 - Urinary Tract Infection, Adult, [id number] sb4 Forms: - Medication Reconciliation Form sb4 - Thank You Letter sb4 - Antibiotic Education sb4 - Prescription Opioid Use sb4 - Patient Portal Instructions sb4 - Leadership Thank You Letter sb4 Prescriptions: - Flagyl 500 mg Oral Tablet - take 1 tablet by ORAL route every 8 hours for 10 days; 30 tablet; Refills: 0, sb4 Product Selection Permitted - Cipro 500 mg Oral Tablet - take 1 tablet by ORAL route every 12 hours for 7 days; 14 tablet; Refills: 0, sb4 Product Selection Permitted Signatures: Dispatcher [employer] Dax Cross, RN RN Lupe Yates PA-C PA-C sb4
--- NOTE | 2022-10-05 12:03 | ER ---
Nurse's Notes [facility] Name: Jayda Hernandez Age: 72 yrs Sex: Female : 1950 Arrival Date: 10/05/2022 Time: 08:40 Bed 16 Private MD: Diagnosis: Diverticulitis of large intestine without perforation or abscess without bleeding;Acute cystitis Presentation: 10/05 08:57 Chief complaint: Patient states: "I GOT THIS PAIN AND REAL BAD GAS AFTER EATING TOO bp MUCH [place]". Coronavirus screen: At this time, the client does not indicate any symptoms associated with coronavirus-19. Ebola Screen: No symptoms or risks identified at this time. Initial Sepsis Screen: Does the patient meet any 2 criteria? No. Patient's initial sepsis screen is negative. Does the patient have a suspected source of infection? No. Patient's initial sepsis screen is negative. Risk Assessment: Do you want to hurt yourself or someone else? Patient reports no desire to harm self or others. Onset of symptoms is unknown. 08:57 Method Of Arrival: Ambulatory bp 08:57 Acuity: MACHO 3 bp Historical: - Allergies: 08:58 PENICILLINS; bp 08:58 erythromycin base; bp - Home Meds: 08:58 Mucinex DM Oral [Active]; valsartan Oral [Active]; bp - PMHx: 08:58 Hypertension; Hypothyroidism; bp - Immunization history:: Adult Immunizations up to date. - Social history:: Smoking status: Patient denies any tobacco usage or history of. Screenin:30 [facility] ED Fall Risk Assessment (Adult) History of falling in the last 3 months, kc6 including since admission No falls in past 3 months (0 pts) Confusion or Disorientation No (0 pts) Intoxicated or Sedated No (0 pts) Impaired Gait No (0 pts) Mobility Assist Device Used No (0 pt) Altered Elimination No (0 pt) Score/Fall Risk Level 0 - 2 = Low Risk. Abuse screen: Denies threats or abuse. Denies injuries from another. Nutritional screening: No deficits noted. Tuberculosis screening: No symptoms or risk factors identified. Assessment: 09:30 General: Appears in no apparent distress. comfortable, Behavior is calm, cooperative, kc6 appropriate for age. Pain: Complains of pain in left lower quadrant. Neuro: Level of Consciousness is awake, alert, obeys commands, Oriented to person, place, time, situation, Appropriate for age. Cardiovascular: Capillary refill < 3 seconds. Respiratory: Airway is patent Trachea midline Respiratory effort is even, unlabored, Respiratory pattern is regular, symmetrical. GI: No signs and/or symptoms were reported involving the gastrointestinal system. Bowel sounds present X 4 quads. Abd is soft X 4 quads Abdomen is tender to palpation in left lower quadrant Patient currently denies diarrhea, nausea, vomiting. : No signs and/or symptoms were reported regarding the genitourinary system. Urine is clear. EENT: No signs and/or symptoms were reported regarding the EENT system. Derm: No signs and/or symptoms reported regarding the dermatologic system. Skin is intact, is healthy with good turgor, Skin is pink, warm \\T\\ dry. Musculoskeletal: No signs and/or symptoms reported regarding the musculoskeletal system. Circulation, motion, and sensation intact. Capillary refill < 3 seconds, Range of motion: intact in all extremities. 10:40 Reassessment: Patient appears in no apparent distress at this time. No changes from kc6 previously documented assessment. Patient and/or family updated on plan of care and expected duration. Pain level reassessed. Patient is alert, oriented x 3, equal unlabored respirations, skin warm/dry/pink. 11:32 Reassessment: Patient appears in no apparent distress at this time. No changes from kc6 previously documented assessment. Patient and/or family updated on plan of care and expected duration. Pain level reassessed. Patient is alert, oriented x 3, equal unlabored respirations, skin warm/dry/pink. Vital Signs: 08:57 BP 178 / 79; Pulse 81; Resp 16; Temp 98; Pulse Ox 94% ; bp 10:40 BP 167 / 75; Pulse 73; Resp 17 S; Pulse Ox 93% on R/A; kc6 11:32 BP 179 / 72; Pulse 89; Resp 17 S; Pulse Ox 95% on R/A; kc6 ED Course: 08:42 Patient arrived in ED. ts1 08:42 Lupe Moss PA-C is PHCP. sb4 08:55 Venus Hobbs, RN is Primary Nurse. kc6 08:58 Triage completed. bp 09:02 Arm band placed on. bp 09:17 Inserted saline lock: 22 gauge in left wrist, using aseptic technique. Blood collected. kc6 09:30 Patient has correct armband on for positive identification. Bed in low position. Call kc6 light in reach. Side rails up X 1. 09:30 Notified primary nurse of recollect need on green top. kj1 10:28 CT Abd/Pelvis - IV Contrast Only In Process Unspecified. EDMS 12:02 David Jacobson MD is Attending Physician. sb4 12:12 No provider procedures requiring assistance completed. IV discontinued, intact, kc6 bleeding controlled, No redness/swelling at site. Pressure dressing applied. Administered Medications: No medications were administered Medication: 12:13 VIS not applicable for this client. kc6 Outcome: 12:02 Discharge ordered by . sb4 12:12 Discharged to home ambulatory. kc6 12:12 Condition: stable 12:12 Discharge instructions given to patient, Instructed on discharge instructions, follow up and referral plans. medication usage, Demonstrated understanding of instructions, follow-up care, medications, Prescriptions given X 2. 12:13 Patient left the ED. kc6 Signatures: Dispatcher [employer] EDMS Dax Olsen, RN RN Li Dorado kj1 Venus Hobbs RN RN kc6 Lupe Moss, PA-C PA-C [email or web address] Gay Alvarez, PAS PAS ts1
[2022-10-05] MEDS ORDERED: MECLIZINE HCL 12.5 MG TAB ONE (12:06)
[2022-10-05 12:26] VITALS: TEMP 98
[2022-10-05 12:37] VITALS: BP 179/72; O2SAT 95
== END 2022-10-05 12:13 | disposition home or self-care (01) ==
LOC: ER 08:40
DX: N30.00 Acute cystitis without hematuria (principal); K57.32 Diverticulitis of large intestine without perforation or abscess without bleeding; I10 Essential (primary) hypertension; Z88.0 Allergy status to penicillin; Z88.3 Allergy status to other anti-infective agents
CPT/HCPCS: 87088; 85025; 81001; 87086; 36415; 83690; 80053; 74177; 99284; Q9967; J8597

== ENCOUNTER 2023-10-28 09:49 | Emergency (ER) | payer OTHER ==
--- OUTSIDE RECORDS SUMMARY | 2023-10-28 09:53 | XMS REPORT | Continuity of Care Document ---
Author Name Unknown Address [address] [facility] [place] [address] [facility] Address [address] [facility] [address] [place] [address] Care Team Providers Care Np Name Role Phone Bette BRINK, [facility] Primary Care Physician [phone] [email or web address]_S Attending Clinician Unavaila renetta Doctor Unassigned, [place] Attending Clinician U Sangeeta Lewis NP Attending Clinician + [phone] MALORIE DE LA O Attending Clinician Unavailab Malorie Stephen DO Attending Clinician [phone] SANGEETA SNYDER Attending Clinician Unavaila KERRI Brian Attending Clinician Unavailable Kerri Macias DO Attending Clinician [phone] VIN KEN Attending Clinician Unavailable Vin Ruiz Attending Clinician [phone] BERNADINE BOSWELL Attending Clinician Unavailable Bernadine Boswell MD Attending Clinician [phone] Yessy Jeffries MA Attending Clinician UnavailJorge Hirsch Attending Clinician Unavailable Jorge Soni Attending Clinician [phone] DENITA WARE Attending Clinician Unavailable Johnnie PAGE, Symone Mac Attending Clinician Unavailab lucia [email or web address]_Kadiyala_S Admitting Clinician Unavaila BERNADINE Coon Admitting Clinician Unavailable Jorge YANG Admitting Clinician Unavailable Payers Payer Name Policy Type Policy Number Effective Date Expirati on Date Source Problems Condition Name Condition Details Condition Category Status Onset Date Resolution Date Last Treatment Date Treating Clinician Comments Source Breast pain in female Breast pain in female Disease Active 03-20 00:00: 00 [facility] 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 Disease Active 03-20 00:00: 00 [facility] BMI 28.0-28.9, adult BMI 28.0-28.9, adult Disease Active 03-20 00:00: 00 [facility] BV (bacterial vaginosis) BV (bacterial vaginosis) Disease Active 10-20 00:00: 00 [facility] Vulvar lesion Vulvar lesion Disease Active 10-19 00:00: 00 [facility] Uncontroll ed hypertensi on Uncontroll ed hypertensi on Disease Active 06-23 00:00: 00 [facility] Essential hypertensi on, benign Essential hypertensi on, benign Disease Active 05-13 00:00: 00 [facility] 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 Noted on CT scan on 01/19/15 [facility] Vaginal pruritus Vaginal pruritus Disease Active 02-25 00:00: 00 [facility] Lichen sclerosus Lichen sclerosus Disease Active 02-25 00:00: 00 [facility] Vaginal lesion Vaginal lesion Disease Active 02-25 00:00: 00 [facility] Vaginal atrophy Vaginal atrophy Disease Active 02-25 00:00: 00 [facility] Cystocele, midline Cystocele, midline Disease Active 02-25 00:00: 00 [facility] Urinary incontinen ce without sensory awareness Urinary incontinen ce without sensory awareness Disease Active 02-25 00:00: 00 [facility] 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 not amounting to dementia Disease Active 02-25 00:00: 00 [facility] Temporal arteritis Temporal arteritis Disease Active 2014-02 00:00: 00 [facility] Hypertensi ve crisis Hypertensi ve crisis Disease Active 2014-02 00:00: 00 [facility] Encounter for screening mammogram for breast cancer Encounter for screening mammogram for breast cancer Problem Active [facility] Encounter for gynecologi tiffany examinatio n without abnormal finding Encounter for gynecologi tiffany examinatio n without abnormal finding Problem Active [facility] Mixed incontinen ce Mixed incontinen ce Problem Active [facility] Adhesive capsulitis of right shoulder Adhesive capsulitis of right shoulder Problem Active [facility] Lateral epicondyli tis, right elbow Lateral epicondyli tis, right elbow Problem Active [facility] History of hysterecto my for benign disease History of hysterecto my for benign disease Problem Active [facility] Postmenopa usal atrophic vaginitis Postmenopa usal atrophic vaginitis Problem Active [facility] Pain in joint of right elbow Pain in joint of right elbow Problem Active [facility] 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 Problem Active [facility] Allergies, Adverse Reactions, Alerts Allergy Name Allergy Type Status Severity Reaction(s) Onset Date Inactive Date Treating Clinician Comments Source Penicill ins Propensi ty to adverse reaction s Active Unknown - See comments 07-26 00:00: 00 [facility] ERYTHROM YCIN DRUG Active Med Rash 07-26 00:00: 00 [facility] PENICILL INS Drug Class Active Unknown-Cmnt 07-26 00:00: 00 [facility] Penicill ins Propensi ty to adverse reaction s Active Unknown - See comments 07-26 00:00: 00 [facility] Erythrom ycin Propensi ty to adverse reaction s to drug Active Rash 07-26 00:00: 00 blisters [facility] penicill in Adverse Reaction Active Info Not Available [facility] Erythrom ycin Adverse Reaction Active Info Not Available [facility] Social History Social Habit Start Date Stop Date Quantity Comments Source Exposure to SARS-CoV-2 (event) 2022-03-26 00:00:00 2022-04-05 14:53:00 Not sure [facility] Alcohol intake 2022-04-05 00:00:00 2022-04-05 00:00:00 0 /d [facility] Sex Assigned At 1950 00:00:00 1950 00:00:00 [facility] Smoking Status Start Date Stop Date Source Never smoked tobacco [facility] Medications Ordered Medication Name Filled Medication Name Start Date Stop Date Current Medication? Ordering Clinician Indication Dosage Frequency Signature (SIG) Comments Components Source amLODIPine 2.5 mg tablet 02-24 00:00: 00 Yes [facility] levothyroxi ne 25 mcg tablet 2021-02 00:00: 00 Yes [facility] meloxicam 7.5 mg tablet 2021-02 00:00: 00 Yes [facility] spironolact one 25 mg tablet 2021-02 00:00: 00 Yes [facility] naproxen sodium 550 mg tablet 2021-02 00:00: 00 Yes [id number] 550mg Take 1 tablet by mouth in the morning and 1 tablet in the evening. Take with meals. [facility] methylPREDN ISolone 4 mg tablets 2021-02 00:00: 00 Yes [id number] Take by mouth SEE-INSTRU CTIONS. follow package directions [facility] methocarbam oL 500 mg tablet 2021-02 00:00: 00 12-08 04:59 :00 No [id number] 500mg Take 1 tablet by mouth in the morning and 1 tablet at noon and 1 tablet in the evening. Do all this for 5 days. [facility] Nitrofurant oin&Nit. Macrocryst 100 mg capsule 09-04 00:00: 00 Yes [id number] 100mg Take 1 capsule by mouth in the morning and 1 capsule in the evening. [facility] valsartan-h ydrochlorot hiazide 320-12.5 mg per tablet - 00:00: 00 Yes [facility] albuterol 90 mcg/actuati on inhaler 04-09 00:00: 00 Yes [id number] 2{puff} Inhale 2 Puffs every 4 (four) hours as needed for Wheezing or Shortness of Breath. [facility] albuterol 2.5 mg /3 mL (0.083 %) nebulizer solution 04-09 00:00: 00 Yes [id number] 2.5mg Inhale 3 mL every 4 (four) hours as needed for Wheezing or Shortness of Breath. [facility] benzonatate 200 mg capsule 04-09 00:00: 00 Yes [id number] 200mg Take 1 capsule by mouth 3 (three) times daily as needed for Cough for up to 20 doses. [facility] Clobex Clobex 2018-02 00:00: 00 02-14 00:00 :00 No Denita Oscar 1 applicatio n [facility] Vital Signs Vital Name Observation Time Observation Value Comments S arminda Systolic blood pressure 2022-04-05 20:53:00 167 mm[Hg] [facility] Diastolic blood pressure 2022-04-05 20:53:00 87 mm[Hg] [facility] Heart rate 2022-04-05 20:53:00 102 /min [facility] Body temperature 2022-04-05 20:53:00 37.72 Nicol [facility] Respiratory rate 2022-04-05 20:53:00 20 /min [facility] Body height 2022-04-05 20:53:00 157.5 cm [facility] Body weight 2022-04-05 20:53:00 69.854 kg [facility] BMI 2022-04-05 20:53:00 28.17 kg/m2 [facility] Oxygen saturation in Arterial blood by Pulse oximetry 2022-04-05 20:53:00 98 /min [facility] Systolic blood pressure 2022-03-20 19:54:00 159 mm[Hg] [facility] Diastolic blood pressure 2022-03-20 19:54:00 74 mm[Hg] [facility] Heart rate 2022-03-20 19:54:00 92 /min Unive [facility] Body temperature 2022-03-20 19:54:00 36.78 [facility] Respiratory rate 2022-03-20 19:54:00 19 /min [facility] Body height 2022-03-20 19:54:00 157.5 cm [facility] Body weight 2022-03-20 19:54:00 69.854 kg [facility] BMI 2022-03-20 19:54:00 28.17 kg/m2 [facility] Systolic blood pressure 2021-12-02 20:20:00 159 mm[Hg] [facility] Diastolic blood pressure 2021-12-02 20:20:00 68 mm[Hg] [facility] Heart rate 2021-12-02 20:20:00 86 /min Unive [facility] Body temperature 2021-12-02 20:20:00 37.17 [facility] Respiratory rate 2021-12-02 20:20:00 18 /min [facility] Body height 2021-12-02 20:20:00 157.5 cm [facility] Body weight 2021-12-02 20:20:00 71.215 kg [facility] BMI 2021-12-02 20:20:00 28.72 kg/m2 [facility] Oxygen saturation in Arterial blood by Pulse oximetry 2021-12-02 20:20:00 96 /min [facility] Systolic blood pressure 2021-09-04 18:47:00 161 mm[Hg] [facility] Diastolic blood pressure 2021-09-04 18:47:00 81 mm[Hg] [facility] Heart rate 2021-09-04 18:47:00 71 /min Unive [facility] Respiratory rate 2021-09-04 18:47:00 18 /min [facility] Oxygen saturation in Arterial blood by Pulse oximetry 2021-09-04 18:47:00 97 /min [facility] Body temperature 2021-09-04 16:03:00 37.5 Nicol [facility] Body height 2021-09-04 16:03:00 157.5 cm [facility] Body weight 2021-09-04 16:03:00 71.215 kg [facility] BMI 2021-09-04 16:03:00 28.72 kg/m2 [facility] Systolic blood pressure 2021-06-13 19:40:00 151 mm[Hg] [facility] Diastolic blood pressure 2021-06-13 19:40:00 87 mm[Hg] [facility] Heart rate 2021-06-13 19:33:00 91 /min Unive [facility] Body temperature 2021-06-13 19:33:00 36.61 Nicol [facility] Respiratory rate 2021-06-13 19:33:00 16 /min [facility] Body height 2021-06-13 19:33:00 157.5 cm [facility] Body weight 2021-06-13 19:33:00 71.305 kg [facility] BMI 2021-06-13 19:33:00 28.75 kg/m2 [facility] Oxygen saturation in Arterial blood by Pulse oximetry 2021-06-13 19:33:00 95 /min [facility] Procedures Procedure Date / Time Performed Performing Clinician Source OP CORRESPONDENCE 2022-06-13 05:01:00 Doctor Prerna ssigned, [place] [facility] RAPID STREP SCREEN FOR GROUP A 2022-04-05 20:56:00 Malorie De La O [facility] CONSENT/REFUSAL FOR DIAGNOSIS AND TREATMENT 2022-04-05 20:44:25 Doctor Unassigned, [place] [facility] ASSIGNMENT OF BENEFITS 2021-12-02 20:27:27 Docto r Unassigned, [place] [facility] CONSENT/REFUSAL FOR DIAGNOSIS AND TREATMENT 2021-12-02 19:59:35 Doctor Unassigned, [place] [facility] COMP. METABOLIC PANEL ([id number]) 2021-09-04 16:51:00 Vin Ken [facility] CBC WITH DIFF 2021-09-04 16:51:00 [facility] URINALYSIS 2021-09-04 16:35:00 [facility]US[facility] FOR [facility]AGNOSIS AND TREATMENT 2021-09-04 15:52:55 Doctor Unassigned, [place] [facility] ASSIGNMENT OF BENEFITS 2021-06-29 18:36:20 Docto r Unassigned, [place] [facility] Encounters Start Date/Time End Date/Time Encounter Type Admission Type Attending [facility] Facility Care Department Encounter ID Source 2022-12-19 00:00:00 2022-12-19 00:00:00 Outpatient GC_GCBZW_Ka diyala_S [facility] [id number] [facility] 2022-06-13 00:00:00 2022-06-13 00:00:00 Orders Only Doctor Unassigned, [place] [facility] [id number] 350.1.13.10 4.2.7.2.686 [id number] [facility] 2022-06-12 00:00:00 2022-06-12 00:00:00 Telephone Sangeeta Snyder [facility] 1.840.114 350.1.13.10 4.2.7.2.686 [id number] [facility] 2022-04-05 14:55:00 2022-04-05 15:21:00 Emergency X MALORIE DE LA O [facility] ERT [id number] [facility] 2022-04-05 14:55:00 2022-04-05 15:21:00 Emergency Malorie De La O [facility] 1.2.840.114 350.1.13.10 4.2.7.2.686 [id number] [facility] 2022-03-20 13:45:00 2022-03-20 14:15:00 Office Visit Sangeeta Snyder [facility] 1.2.840.114 350.1.13.10 4.2.7.2.686 [id number] [facility] 2022-03-20 13:45:00 2022-03-20 13:45:00 Outpatient R [facility] [id number] [facility] 2021-12-13 00:00:00 2021-12-13 00:00:00 Telephone SamaraSangeeta vergara [facility] 1.2.840.114 350.1.13.10 4.2.7.2.686 [id number] [facility] 2021-12-02 15:22:00 2021-12-02 15:34:00 Emergency X KERRI MACIAS [facility] ERT [id number] [facility] 2021-12-02 15:22:00 2021-12-02 15:34:00 Emergency Kerri Macias [facility] 1.2.840.114 350.1.13.10 4.2.7.2.686 [id number] [facility] 2021-09-04 11:04:00 2021-09-04 13:48:00 Emergency X VIN KEN [facility] ERT [id number] [facility] 2021-09-04 11:04:00 2021-09-04 13:48:00 Emergency Vin Ken [facility] 1.2.840.114 350.1.13.10 4.2.7.2.686 [id number] [facility] 2021-06-29 13:37:33 2021-06-29 23:59:00 Outpatient R BERNADINE BOSWELL [facility] [id number] [facility] 2021-06-29 13:37:33 2021-06-29 23:59:00 Hospital Encounter Bernadine Boswell [facility] 1.2840.114 350.1.13.10 4.2.7.2.686 [id number] [facility] 2021-06-29 00:00:00 2021-06-29 00:00:00 Orders Only Doctor Unassigned, [place] [facility] 1.20.114 350.1.13.10 4.2.7.2.686 [id number] [facility] 2021-06-13 14:00:00 2021-06-13 15:05:56 Office Visit Bernadine Boswell [facility] 1.0.114 350.1.13.10 4.2.7.2.686 [id number] [facility] 2021-06-13 14:00:00 2021-06-13 15:05:56 Outpatient R BERNADINE BOSWELL [facility] [id number] [facility] 2021-06-13 14:00:00 2021-06-13 14:00:00 Outpatient R ELSY BERNADINE [facility] [id number] [facility] 2021-06-13 00:00:00 2021-06-13 00:00:00 Orders Only Doctor Unassigned, [place] [facility] 1.2.114 350.1.13.10 4.2.7.2.686 [id number] [facility] 2021-06-06 00:00:00 2021-06-06 00:00:00 Pre Visit Outreach Yessy Jeffries 1.2.840.114 350.1.13.10 4.2.7.2.686 [id number] [facility] 2021-04-09 13:43:00 2021-04-09 21:50:00 Emergency X Jorge YANG [facility] ERT [id number] [facility] 2021-04-09 13:43:00 2021-04-09 21:50:00 Emergency Jorge Yang [facility] 1.2840.114 350.1.13.10 4.2.7.2.686 [id number] [facility] 2021-04-09 00:00:00 2021-04-09 00:00:00 Orders Only Doctor Unassigned, [place] [facility] 1.2840.114 350.1.13.10 4.2.7.2.686 [id number] [facility] 2021-03-31 13:30:00 2021-03-31 13:30:00 Outpatient DENITA ISAACS [facility] [id number] [facility] 2021-03-27 00:00:00 2021-03-27 00:00:00 Letter (Out) Symone Blair [facility] 1.2840.114 350.1.13.10 4.2.7.2.686 [id number] [facility] 2021-03-26 12:43:00 2021-03-26 13:31:00 Emergency X VIN KEN [facility] ERT [id number] [facility] 2021-03-26 12:43:00 2021-03-26 13:31:00 Emergency Vin Ken S [facility] 1.2840.114 350.1.13.10 4.2.7.2.686 [id number] [facility] 2021-03-26 00:00:00 2021-03-26 00:00:00 Orders Only Doctor Unassigned, [place] [facility] 1.2.840.114 350.1.13.10 4.2.7.2.686 [id number] [facility] 2019-02-04 08:48:00 2019-02-04 08:48:00 [facility] [id number] [facility] 2019-01-30 09:26:00 2019-01-30 09:26:00 [facility] [id number] [facility] 2019 09:47:00 2019 09:47:00 [facility] [id number] [facility] 2019-01-27 10:30:00 2019-01-27 10:30:00 [facility] [id number] [facility] Results Test Description Test Time Test Comments Results Result Co mments Source [facility] WITH [id number] 17:21:56* Test Item Value Reference Range Interpretation Comme nts WBC (test code = 6690-2) See_Comment [Automated reMaila ge] The system which generated this result transmitted reference range: 4.30 - 11.10 10*3/?L. The reference range was not used to interpret this result as normal/abnormal. RBC (test code = 789-8) See_Comment [Automated reMaila ge] The system which generated this result transmitted reference range: 3.93 - 5.25 10*6/?L. The reference range was not used to interpret this result as normal/abnormal. HGB (test code = 718-7) 13.5 g/dL 11.6-15 HCT (test code = 4544-3) 40.5 % 35.7-45.2 MCV (test code = 787-2) 90.8 fL 80.6-95.5 MCH (test code = 785-6) 30.3 pg 25.9-32.8 MCHC (test code = 786-4) 33.3 g/dL 31.6-35.1 RDW-SD (test code = 16647-7) 38.0 fL 39-49.9 L RDW-CV (test code = 788-0) 11.4 % 12-15.5 L PLT (test code = 777-3) See_Comment [Automated reMaila ge] The system which generated this result transmitted reference range: 166 - 358 10*3/?L. The reference range was not used to interpret this result as normal/abnormal. MPV (test code = 12712-7) 9.1 fL 9.5-12.9 L NRBC/100 WBC (test code = 1826983426) See_Comment [Automated [employer] ssage] The system which generated this result transmitted reference range: 0.0 - 10.0 /100 WBCs. The reference range was not used to interpret this result as normal/abnormal. NRBC x10^3 (test code = 5898560595) See_Comment [Automated reMaila ge] The system which generated this result transmitted reference range: 10*3/?L. The reference range was not used to interpret this result as normal/abnormal. GRAN MAT (NEUT) % (test code = 770-8) 75.3 % IMM GRAN % (test code = 1784240583) 0.30 % LYMPH % (test code = 736-9) 14.0 % MONO % (test code = 5905-5) 7.2 % EOS % (test code = 713-8) 2.7 % BASO % (test code = 706-2) 0.5 % GRAN MAT x10^3(ANC) (test code = 0451327243) 7.45 10*3/uL 1.88-7.09 H IMM GRAN x10^3 (test code = 3127527199) 0.03 10*3/uL 0-0.06 LYMPH x10^3 (test code = 731-0) 1.38 10*3/uL 1.32-3.29 MONO x10^3 (test code = 742-7) 0.71 10*3/uL 0.33-0.92 EOS x10^3 (test code = 711-2) 0.27 10*3/uL 0.03-0.39 BASO x10^3 (test code = 704-7) 0.05 10*3/uL 0.01-0.07 Lab Interpretation (test code = 14325-9) Abnormal [facility]
[2023-10-28] MEDS ORDERED: dexAMETHasone 10 MG/ML VIAL ONE (10:31)
[2023-10-28] MEDS ORDERED: KETOROLAC 30 MG/ML INJ ONE (10:32)
[2023-10-28] MEDS ORDERED: CYCLOBENZAPRINE 10 MG TAB ONE (10:32)
[2023-10-28] MEDS ORDERED: HYDROCODONE/APAP 5/325 MG TAB ONE (10:32)
[2023-10-28 10:58] LABS: Absolute Basophils 0.1 K/uL (0-0.5); Absolute Eosinophils 0.2 K/uL (0-0.5); Absolute Lymphocytes (CBC) 0.9 K/uL (0.7-4.9); Absolute Monocytes 0.7 K/uL (0.1-1.3); Absolute Neutrophil 9.8 K/uL (1.8-8.0); Basophils % 0.5 % (0-1.3); Hematocrit 43.5 % (36.0-45.0); Hemoglobin 14.3 g/dL (12.0-15.0); Lymphocytes % 7.5 % (15.3-44.8); MCH 31.1 pg (27.0-35.0); MCV 94.2 fL (80-100); MPV 7.8 fL (7.6-11.3); Monocytes % 5.8 % (3.3-12.3); Neutrophils % 84.2 % (41.7-73.7); Platelets 290 thou/uL (152-406); RBC Red Blood Cell Count 4.62 M/uL (3.86-4.86); Red Cell Distribution Width 12.3 % (12.1-15.2); Specific Gravity 1.025 (1.005-1.030); Transitional Epithelial <5 /HPF (None Seen); Urine Bacteria None Seen /HPF (<20); Urine Bilirubin NEGATIVE (Negative); Urine Blood 1+ (Negative); Urine Clarity Extremely Turbid (Clear); Urine Color Yellow (Yellow); Urine Culture Reflex Order REFLEXED; Urine Glucose NEGATIVE (Negative); Urine Ketones NEGATIVE (Negative); Urine Microscopic Reflex YN ORDER UMIC; Urine Mucus Slight /HPF (None Seen); Urine Nitrite NEGATIVE (Negative); Urine Protein 1+ (Negative); Urine RBC 21-50 /HPF (None Seen); Urine Urobilinogen Normal (Normal); Urine WBC >50 /HPF (<5); Urine WBC Clump Many /HPF (None Seen); Urine pH 5.5 (5.0-7.0)
[2023-10-28 11:10] LABS: Albumin 3.3 g/dL (3.4-5.0); Albumin/Globulin Ratio 0.9 (1.1-1.8); Anion Gap 9.6 mEq/L (5.0-15.0); Bilirubin Total 0.6 mg/dL (0.2-1.0); Globulin 3.5 g/dL (2.3-3.5); Potassium 3.6 mEq/L (3.5-5.1); Protein, Total 6.8 g/dL (6.4-8.2)
--- NOTE | 2023-10-28 11:52 | RAD REPORT ---
EXAM DESCRIPTION: CTAbdomen Pelvis W Contrast - 10/28/2023 11:44 am CLINICAL HISTORY: Abdominal pain. back pain COMPARISON: Abdomen Pelvis W Contrast dated 10/05/2022 TECHNIQUE: CT imaging of the abdomen and pelvis was performed with 100 ml non-ionic IV contrast. All CT scans are performed using dose optimization technique as appropriate and may include automated exposure control or mA/KV adjustment according to patient size. FINDINGS: The lung bases are clear.Cholecystectomy clips. The liver, spleen, pancreas, adrenal glands and kidneys are within normal limits. Benign renal cysts bilaterally. No bowel obstruction, free air, free fluid or abscess. Prominent sigmoid diverticulosis coli is seen with mild pericolonic inflammation in the left lower quadrant with wall thickening. The appendix is n ormal. No evidence of significant lymphadenopathy. Subtle areas of mesenteric inflammation seen in t he small bowel mesentery. Prominent L4-5 disc bulge noted. Slight inflammation along the anterior urinary bladder. IMPRESSION: Slight inflammation along the anterior urinary bladder suggests cystitis. Mild left lower quadrant diverticulitis pattern suspected. Colonoscopy would be advised after appropr iate therapy to directly visualize this region of wall thickening in the sigmoid colon. Prominent L4-5 disc bulge.
--- NOTE | 2023-10-28 12:22 | EDPHYS ---
Physician Documentation [facility] Name: Jayda Hernandez Age: 73 yrs Sex: Female : 1950 Arrival Date: 10/28/2023 Time: 09:49 Bed 20 Private MD: ED Physician Alexx Sellers HPI: 10/27 13:35 This 73 yrs old Female presents to ER via Ambulatory with complaints of Low Back Pain. rt 13:35 Patient presents to the ED with a right lower back pain. Patient is currently on day 5 rt of Cipro for UTI. She states the symptoms are different from her UTI symptoms. Denies other acute complaints at this time. Symptoms are moderate in severity, no other aggravating or alleviating factors.. Historical: - Allergies: 10:04 PENICILLINS; hb 10:04 erythromycin; hb - Home Meds: 10:04 valsartan Oral [Active]; unknown thyroid med Oral [Active]; hb - PMHx: 10:04 Hypertension; Hypothyroidism; hb - Immunization history:: Adult Immunizations up to date. - Infectious Disease History:: Denies. - Social history:: Smoking status: Patient denies any tobacco usage or history of. - Family history:: not pertinent. ROS: 13:35 Constitutional: Negative for fever, chills, and weight loss, Cardiovascular: Negative rt for chest pain, palpitations, and edema, Respiratory: Negative for shortness of breath, cough, wheezing, and pleuritic chest pain, Abdomen/GI: Negative for abdominal pain, nausea, vomiting, diarrhea, and constipation, Skin: Negative for injury, rash, and discoloration, Neuro: Negative for headache, weakness, numbness, tingling, and seizure, 13:35 Back: Positive for pain at rest, pain with movement, Exam: 13:35 Constitutional: This is a well developed, well nourished patient who is awake, alert, rt and in no acute distress. Head/Face: Normocephalic, atraumatic. Chest/axilla: Normal chest wall appearance and motion. Nontender with no deformity. No lesions are appreciated. Cardiovascular: Regular rate and rhythm with a normal S1 and S2. No gallops, murmurs, or rubs. Normal PMI, no JVD. No pulse deficits. Respiratory: Lungs have equal breath sounds bilaterally, clear to auscultation and percussion. No rales, rhonchi or wheezes noted. No increased work of breathing, no retractions or nasal flaring. Abdomen/GI: Soft, non-tender, with normal bowel sounds. No distension or tympany. No guarding or rebound. No evidence of tenderness throughout. Skin: Warm, dry with normal turgor. Normal color with no rashes, no lesions, and no evidence of cellulitis. MS/ Extremity: Pulses equal, no cyanosis. Neurovascular intact. Full, normal range of motion. 13:35 Back: Mild tenderness of the right lower paraspinal region, no midline tenderness, no step-offs, Vital Signs: 10:02 BP 137 / 88; Pulse 85; Resp 16; Temp 97.3(TE); Pulse Ox 100% on R/A; Weight 71.21 kg; hb Height 5 ft. 2 in. ; Pain 8/10; 10:02 Body Mass Index 28.72 (71.21 kg, 157.48 cm) hb 10:02 Pain Scale: Adult hb MDM: 10:05 Patient medically screened. rt 13:35 Differential diagnosis: Musculoskeletal pain, pyelonephritis, kidney stone. Data rt reviewed: vital signs, nurses notes. I considered the following discharge prescriptions or medication management in the emergency department Medications were administered in the Emergency Department. See MAR. Independent interpretation of the following test(s) in the Emergency Department CT Scan: My interpretation is No ureteral stone seen on my interpretation of CT scan images. Care significantly affected by the following chronic conditions: Hypertension. Counseling: I had a detailed discussion with the patient and/or guardian regarding the historical points, exam findings, and any diagnostic results supporting the discharge/admit diagnosis, lab results, radiology results, the need for outpatient follow up. Response to treatment: the patient's symptoms have markedly improved after treatment. ED course: Patient has disc herniation seen on CT scan, believe this is the etiology of her presentation. Patient has half treated for a UTI, this explains the cystitis, blood in the urine seen on diagnostic studies. Patient with a history of diverticulitis, possible early diverticulitis, do not believe is the primary reason for her being here. She is penicillin allergic, however, she is already on Cipro, will add Flagyl. Patient instructed to follow-up as an outpatient.. 10/27 10:12 Order name: CBC with Diff; Complete Time: 11:53 rt 10/27 10:12 Order name: CMP; Complete Time: 11:53 rt 10/27 10:12 Order name: Lipase; Complete Time: 11:53 rt 10/27 10:12 Order name: Urinalysis w/ reflexes; Complete Time: 11:53 rt 10/27 11:01 Order name: Urine Culture EDMS 10/27 10:12 Order name: CT Abd/Pelvis - IV Contrast Only; Complete Time: 11:53 rt 10/27 10:12 Order name: IV Saline Lock; Complete Time: 10:55 rt 10/27 10:12 Order name: Labs collected and sent; Complete Time: 10:55 rt Administered Medications: 10:40 Drug: TORadol - Ketorolac IVP 15 mg IVP once Route: IVP; Site: right antecubital; ap3 12:43 Follow up: Response: No adverse reaction; Pain is decreased ap3 10:40 Drug: Decadron - Dexamethasone IVP 8 mg IVP once Route: IVP; Site: right antecubital; ap3 12:43 Follow up: Response: No adverse reaction; Pain is decreased ap3 11:54 Not Given (Patient Refused): [id number] mg PO once ap3 11:54 Not Given (Patient Refused): hydrocodone-acetaminophen5 mg-325 mg 1 tabs PO once ap3 Disposition Summary: 10/28/23 12:22 Discharge Ordered Notes: Location: Home rt Problem: new rt Symptoms: have improved rt Condition: Stable rt Diagnosis - Herniated disc of L4, L5 rt - Mild uncomplicated diverticulitis rt - UTI rt Followup: rt - With: Private Physician - When: 2 - 3 days - Reason: Discharge Instructions: - Discharge Summary Sheet rt - Diverticulitis rt - Herniated Disk rt Forms: - Medication Reconciliation Form rt - Antibiotic Education rt - Prescription Opioid Use rt - Patient Portal Instructions rt - Leadership Thank You Letter rt Prescriptions: - Flagyl 500 mg Oral Tablet - take 1 tablet ORAL route every 8 hours for 10 days; 30 tablet; Refills: 0, rt Product Selection Permitted - Tramadol 50 mg Oral Tablet - take 1 tablet ORAL route every 8 hours as needed; 12 tablet; Refills: 0, rt Product Selection Permitted - Medrol (Jhonatan) 4 mg Oral Tablets, Dose Pack - take 1 tablet ORAL route as directed - follow package instructions; 1 packet; rt Refills: 0, Product Selection Permitted - Cyclobenzaprine 5 mg Oral Tablet - take 1 tablet ORAL route 3 times per day As needed; 15 tablet; Refills: 0, rt Product Selection Permitted Signatures: Dispatcher [employer] Yessy Beasley RN RN Meenu Kline RN RN ap3 Alexx Sellers MD MD rt Corrections: (The following items were deleted from the chart) 10:04 Allergies: erythromycin base; hb hb 10:04 Home Meds: valsartan Oral; hb hb
--- NOTE | 2023-10-28 12:22 | ER ---
Nurse's Notes [facility] Name: Jayda Hernandez Age: 73 yrs Sex: Female : 1950 Arrival Date: 10/28/2023 Time: 09:49 Bed 20 Private MD: Diagnosis: Herniated disc of L4, L5;Mild uncomplicated diverticulitis;UTI Presentation: 10/27 10:02 Chief complaint: Worsening right low back pain x 2 days. On Cipro for UTI. Coronavirus hb screen: At this time, the client does not indicate any symptoms associated with coronavirus-19. Ebola Screen: No symptoms or risks identified at this time. Initial Sepsis Screen: Does the patient meet any 2 criteria? No. Patient's initial sepsis screen is negative. Does the patient have a suspected source of infection? No. Patient's initial sepsis screen is negative. Risk Assessment: Do you want to hurt yourself or someone else? Patient reports no desire to harm self or others. Onset of symptoms was October 26, 2023. 10:02 Method Of Arrival: Ambulatory hb 10:02 Acuity: MACHO 3 hb Triage Assessment: 10:07 General: Appears in no apparent distress. uncomfortable, Behavior is calm, cooperative. hb Pain: Pain currently is 8 out of 10 on a pain scale. Neuro: GCS 15. Cardiovascular: Patient's skin is warm and dry. Respiratory: Respiratory effort is even, unlabored, Respiratory pattern is regular, symmetrical. Historical: - Allergies: 10:04 PENICILLINS; hb 10:04 erythromycin; hb - Home Meds: 10:04 valsartan Oral [Active]; unknown thyroid med Oral [Active]; hb - PMHx: 10:04 Hypertension; Hypothyroidism; hb - Immunization history:: Adult Immunizations up to date. - Infectious Disease History:: Denies. - Social history:: Smoking status: Patient denies any tobacco usage or history of. - Family history:: not pertinent. Screenin:18 Abuse screen: Denies threats or abuse. Nutritional screening: No deficits noted. ap3 Tuberculosis screening: No symptoms or risk factors identified. 12:43 [facility] ED Fall Risk Assessment (Adult) History of falling in the last 3 months, ap3 including since admission No falls in past 3 months (0 pts) Confusion or Disorientation No (0 pts) Intoxicated or Sedated No (0 pts) Impaired Gait No (0 pts) Mobility Assist Device Used No (0 pt) Altered Elimination No (0 pt) Score/Fall Risk Level 0 - 2 = Low Risk Oriented to surroundings, Maintained a safe environment, Educated pt \T\ family on fall prevention, incl call for assistance when getting out of bed, Assessed \T\ reinforced patient's understanding of fall precautions, Hourly rounding (assess needs \T\ fall precautionary measures) done, Used ambulatory aids as needed (educated on \T\ assisted with), Used gait belt as appropriate. Assessment: 10:17 General: Appears in no apparent distress. Behavior is calm, cooperative, appropriate ap3 for age. Pain: Complains of pain in right low back Pain began gradually. Neuro: Level of Consciousness is awake, alert, obeys commands, Oriented to person, place, time, situation, Appropriate for age. Cardiovascular: Patient's skin is warm and dry. Respiratory: Airway is patent Respiratory effort is even, unlabored, Respiratory pattern is regular, symmetrical. Vital Signs: 10:02 BP 137 / 88; Pulse 85; Resp 16; Temp 97.3(TE); Pulse Ox 100% on R/A; Weight 71.21 kg; hb Height 5 ft. 2 in. ; Pain 8/10; 10:02 Body Mass Index 28.72 (71.21 kg, 157.48 cm) hb 10:02 Pain Scale: Adult hb ED Course: 09:51 Patient arrived in ED. ra3 09:56 Alexx Sellers MD is Attending Physician. rt 10:04 Triage completed. hb 10:05 Meenu Kline, CAMILO is Primary Nurse. ap3 10:07 Arm band placed on. hb 10:18 Patient has correct armband on for positive identification. Call light in reach. Pulse ap3 ox on. NIBP on. 10:36 Initial lab(s) drawn, by me, sent to lab. Urine collected: clean catch specimen, cc6 cloudy. Inserted saline lock: 20 gauge in right antecubital area, using aseptic technique. Blood collected. Flushed with 10 mL NS. 10:55 CBC with Diff Sent. cc6 10:55 CMP Sent. cc6 10:55 Lipase Sent. cc6 10:55 Urinalysis w/ reflexes Sent. cc6 11:45 CT Abd/Pelvis - IV Contrast Only In Process Unspecified. EDMS 12:11 ED physician to see patient. ap3 12:43 No provider procedures requiring assistance completed. IV discontinued, intact, ap3 bleeding controlled, No redness/swelling at site. Pressure dressing applied. 12:44 Provided Education on: fall risk education. ap3 Administered Medications: 10:40 Drug: TORadol - Ketorolac IVP 15 mg IVP once Route: IVP; Site: right antecubital; ap3 12:43 Follow up: Response: No adverse reaction; Pain is decreased ap3 10:40 Drug: Decadron - Dexamethasone IVP 8 mg IVP once Route: IVP; Site: right antecubital; ap3 12:43 Follow up: Response: No adverse reaction; Pain is decreased ap3 11:54 Not Given (Patient Refused): [id number] mg PO once ap3 11:54 Not Given (Patient Refused): hydrocodone-acetaminophen5 mg-325 mg 1 tabs PO once ap3 Medication: 10:18 VIS not applicable for this client. ap3 Outcome: 12:22 Discharge ordered by . rt 12:44 Discharged to home ambulatory, ap3 12:44 Condition: good 12:44 Discharge instructions given to patient, Instructed on discharge instructions, follow up and referral plans. Demonstrated understanding of instructions, follow-up care, medications, Prescriptions given X 4, 12:44 Patient left the ED. ap3 Signatures: Dispatcher [employer] EDMS Yessy Phillip RN RN hb Meenu Kline RN RN ap3 Alexx Sellers MD MD rt Carmencita Oneal ra3 Marni Jacobson cc6 Corrections: (The following items were deleted from the chart) 10:07 10:04 Allergies: erythromycin base; hb hb 10:07 10:04 Home Meds: valsartan Oral; hb hb
[2023-10-28 12:53] VITALS: BP 137/88; TEMP 97.3; O2SAT 100
== END 2023-10-28 12:44 | disposition home or self-care (01) ==
LOC: ER 09:49
DX: M51.26 Other intervertebral disc displacement, lumbar region (principal); N39.0 Urinary tract infection, site not specified; K57.92 Diverticulitis of intestine, part unspecified, without perforation or abscess without bleeding; I10 Essential (primary) hypertension; E03.9 Hypothyroidism, unspecified; Z88.0 Allergy status to penicillin; Z88.1 Allergy status to other antibiotic agents
CPT/HCPCS: 87088; 85025; 81001; 87086; 36415; 83690; 80053; 74177; 96375; 96374; 99284; J1100; 87077; 87186

== ENCOUNTER 2024-02-21 09:05 | Emergency (ER) | payer OTHER ==
--- OUTSIDE RECORDS SUMMARY | 2024-02-21 09:09 | XMS REPORT | Continuity of Care Document ---
Author Name Unknown Address [address] [place] [address] [facility] Address [address] [place] [address] Care Team Providers Care Supervisor Assembly Name Role Phone Bette BRINK, Griselda Primary Care Physician [phone] Doctor Unassigned, Stuart Attending Clinician U Sangeeta Lewis NP Attending Clinician [phone] MALORIE DE LA O Attending Clinician Unavailab Malorie Stephen DO Attending Clinician [phone] SANGEETA SNYDER Attending Clinician UnavailKERRI Lares Attending Clinician Unavailable Kerri Macias DO Attending Clinician [phone] VIN KEN Attending Clinician Unavailable Vin Ruiz S Attending Clinician [phone] BERNADINE BOSWELL Attending Clinician Unavailable Bernadine Boswell MD Attending Clinician [phone] Yessy Jeffries MA Attending Clinician UnavailJorge Hirsch Attending Clinician Unavailable Jorge Soni Attending Clinician [phone] MADDY WARE Attending Clinician Unavailable Johnnei PAGE, Symone Mac Attending Clinician Unavailab BERNADINE Choudhary Admitting Clinician Unavailable Jorge YANG Admitting Clinician Unavailable Payers Payer Name Policy Type Policy Number Effective Date Expirati on Date Source Problems Condition Name Condition Details Condition Category Status Onset Date Resolution Date Last Treatment Date Treating Clinician Comments Source Breast pain in female Breast pain in female Disease Active 03-20 00:00: 00 [facility] 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 Disease Active 03-20 00:00: 00 [facility] BMI 28.0-28.9, adult BMI 28.0-28.9, adult Disease Active 03-20 00:00: 00 [facility] BV (bacterial vaginosis) BV (bacterial vaginosis) Disease Active 10-20 00:00: 00 [facility] Vulvar lesion Vulvar lesion Disease Active 10-19 00:00: 00 [facility] Uncontroll ed hypertensi on Uncontroll ed hypertensi on Disease Active 06-23 00:00: 00 [facility] Essential hypertensi on, benign Essential hypertensi on, benign Disease Active 05-13 00:00: 00 [facility] 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 Noted on CT scan on 01/19/15 [facility] Vaginal pruritus Vaginal pruritus Disease Active 02-25 00:00: 00 [facility] Lichen sclerosus Lichen sclerosus Disease Active 02-25 00:00: 00 [facility] Vaginal lesion Vaginal lesion Disease Active 02-25 00:00: 00 [facility] Vaginal atrophy Vaginal atrophy Disease Active 02-25 00:00: 00 [facility] Cystocele, midline Cystocele, midline Disease Active 02-25 00:00: 00 [facility] Urinary incontinen ce without sensory awareness Urinary incontinen ce without sensory awareness Disease Active 02-25 00:00: 00 [facility] 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 not amounting to dementia Disease Active 02-25 00:00: 00 [facility] Temporal arteritis Temporal arteritis Disease Active 2014-02 00:00: 00 [facility] Hypertensi ve crisis Hypertensi ve crisis Disease Active 2014-02 00:00: 00 [facility] Allergies, Adverse Reactions, Alerts Allergy Name Allergy Type Status Severity Reaction(s) Onset Date Inactive Date Treating Clinician Comments Source Penicill ins Propensi ty to adverse reaction s Active Unknown - See comments 07-26 00:00: 00 [facility] ERYTHROM YCIN DRUG Active Med Rash 07-26 00:00: 00 [facility] PENICILL INS Drug Class Active Unknown-Cmnt 07-26 00:00: 00 [facility] Penicill ins Propensi ty to adverse reaction s Active Unknown - See comments 07-26 00:00: 00 [facility] Erythrom ycin Propensi ty to adverse reaction s to drug Active Rash 07-26 00:00: 00 blisters [facility] Social History Social Habit Start Date Stop Date Quantity Comments Source Exposure to SARS-CoV-2 (event) 2022-03-26 00:00:00 2022-04-05 14:53:00 Not sure [facility] Alcohol intake 2022-04-05 00:00:00 2022-04-05 00:00:00 0 /d [facility] Sex Assigned At 1950 00:00:00 1950 00:00:00 [facility] Smoking Status Start Date Stop Date Source Never smoked tobacco [facility] Medications Ordered Medication Name Filled Medication Name Start Date Stop Date Current Medication? Ordering Clinician Indication Dosage Frequency Signature (SIG) Comments Components Source amLODIPine 2.5 mg tablet 02-24 00:00: 00 Yes [facility] levothyroxi ne 25 mcg tablet 2021-02- 00:00: 00 Yes [facility] meloxicam 7.5 mg tablet 2021-02- 00:00: 00 Yes [facility] spironolact one 25 mg tablet 2022-1 2-13 00:00: 00 Yes [facility] naproxen sodium 550 mg tablet 2021-02 0-14 00:00: 00 Yes [id number] 550mg Take 1 tablet by mouth in the morning and 1 tablet in the evening. Take with meals. [facility] methylPREDN ISolone 4 mg tablets 2021-02 0 00:00: 00 Yes [id number] Take by mouth SEE-INSTRU CTIONS. follow package directions [facility] methocarbam oL 500 mg tablet 2021-02 00:00: 00 12-08 04:59 :00 No [id number] 500mg Take 1 tablet by mouth in the morning and 1 tablet at noon and 1 tablet in the evening. Do all this for 5 days. [facility] Nitrofurant oin&Nit. Macrocryst 100 mg capsule 09-04 00:00: 00 Yes [id number] 100mg Take 1 capsule by mouth in the morning and 1 capsule in the evening. [facility] valsartan-h ydrochlorot hiazide 320-12.5 mg per tablet 05-10 00:00: 00 Yes [facility] albuterol 90 mcg/actuati on inhaler 04-09 00:00: 00 Yes [id number] 2{puff} Inhale 2 Puffs every 4 (four) hours as needed for Wheezing or Shortness of Breath. [facility] albuterol 2.5 mg /3 mL (0.083 %) nebulizer solution 04-09 00:00: 00 Yes [id number] 2.5mg Inhale 3 mL every 4 (four) hours as needed for Wheezing or Shortness of Breath. [facility] benzonatate 200 mg capsule 04-09 00:00: 00 Yes [id number] 200mg Take 1 capsule by mouth 3 (three) times daily as needed for Cough for up to 20 doses. [facility] Vital Signs Vital Name Observation Time Observation Value Comments S arminda Systolic blood pressure 2022-04-05 20:53:00 167 mm[Hg] [facility] Diastolic blood pressure 2022-04-05 20:53:00 87 mm[Hg] [facility] Heart rate 2022-04-05 20:53:00 102 /min [facility] Body temperature 2022-04-05 20:53:00 37.72 Nicol [facility] Respiratory rate 2022-04-05 20:53:00 20 /min [facility] Body height 2022-04-05 20:53:00 157.5 cm [facility] Body weight 2022-04-05 20:53:00 69.854 kg [facility] BMI 2022-04-05 20:53:00 28.17 kg/m2 [facility] Oxygen saturation in Arterial blood by Pulse oximetry 2022-04-05 20:53:00 98 /min [facility] Systolic blood pressure 2022-03-20 19:54:00 159 mm[Hg] [facility] Diastolic blood pressure 2022-03-20 19:54:00 74 mm[Hg] [facility] Heart rate 2022-03-20 19:54:00 92 /min [facility] Body temperature 2022-03-20 19:54:00 36.78 Nicol [facility] Respiratory rate 2022-03-20 19:54:00 19 /min [facility] Body height 2022-03-20 19:54:00 157.5 cm [facility] Body weight 2022-03-20 19:54:00 69.854 kg [facility] BMI 2022-03-20 19:54:00 28.17 kg/m2 [facility] Systolic blood pressure 2021-12-02 20:20:00 159 mm[Hg] [facility] Diastolic blood pressure 2021-12-02 20:20:00 68 mm[Hg] [facility] Heart rate 2021-12-02 20:20:00 86 /min [facility] Body temperature 2021-12-02 20:20:00 37.17 Nicol [facility] Respiratory rate 2021-12-02 20:20:00 18 /min [facility] Body height 2021-12-02 20:20:00 157.5 cm [facility] Body weight 2021-12-02 20:20:00 71.215 kg [facility] BMI 2021-12-02 20:20:00 28.72 kg/m2 [facility] Oxygen saturation in Arterial blood by Pulse oximetry 2021-12-02 20:20:00 96 /min [facility] Systolic blood pressure 2021-09-04 18:47:00 161 mm[Hg] [facility] Diastolic blood pressure 2021-09-04 18:47:00 81 mm[Hg] [facility] Heart rate 2021-09-04 18:47:00 71 /min [facility] Respiratory rate 2021-09-04 18:47:00 18 /min [facility] Oxygen saturation in Arterial blood by Pulse oximetry 2021-09-04 18:47:00 97 /min [facility] Body temperature 2021-09-04 16:03:00 37.5 Nicol [facility] Body height 2021-09-04 16:03:00 157.5 cm [facility] Body weight 2021-09-04 16:03:00 71.215 kg [facility] BMI 2021-09-04 16:03:00 28.72 kg/m2 [facility] Systolic blood pressure 2021-06-13 19:40:00 151 mm[Hg] [facility] Diastolic blood pressure 2021-06-13 19:40:00 87 mm[Hg] [facility] Heart rate 2021-06-13 19:33:00 91 /min [facility] Body temperature 2021-06-13 19:33:00 36.61 Nicol [facility] Respiratory rate 2021-06-13 19:33:00 16 /min [facility] Body height 2021-06-13 19:33:00 157.5 cm [facility] Body weight 2021-06-13 19:33:00 71.305 kg [facility] BMI 2021-06-13 19:33:00 28.75 kg/m2 [facility] Oxygen saturation in Arterial blood by Pulse oximetry 2021-06-13 19:33:00 95 /min [facility] Procedures Procedure Date / Time Performed Performing Clinician Source OP CORRESPONDENCE 2022-06-13 05:01:00 Doctor Prerna ssigned, Stuart [facility] RAPID STREP SCREEN FOR GROUP A 2022-04-05 20:56:00 Malorie De La O [facility] CONSENT/REFUSAL FOR DIAGNOSIS AND TREATMENT 2022-04-05 20:44:25 Doctor Unassigned, Stuart [facility] ASSIGNMENT OF BENEFITS 2021-12-02 20:27:27 Docdarwin r Unassigned, Stuart [facility] CONSENT/REFUSAL FOR DIAGNOSIS AND TREATMENT 2021-12-02 19:59:35 Doctor Unassigned, Stuart [facility] COMP. METABOLIC PANEL ([id number]) 2021-09-04 16:51:00 Vin Ken [facility] CBC WITH DIFF 2021-09-04 16:51:00 Vin Ken [facility] URINALYSIS 2021-09-04 16:35:00 Vin Ken [facility] CONSENT/REFUSAL FOR DIAGNOSIS AND TREATMENT 2021-09-04 15:52:55 Doctor Unassigned, Stuart [facility] ASSIGNMENT OF BENEFITS 2021-06-29 18:36:20 Docdarwin r Unassigned, Stuart [facility] Encounters Start Date/Time End Date/Time Encounter Type Admission Type Attending Clinicians Care Facility Care Department Encounter ID Source 2022-06-13 00:00:00 2022-06-13 00:00:00 Orders Only Doctor Unassigned, Stuart [facility] 1..114 350.1.13.10 4.2.7.2.686 [id number] [facility] 2022-06-12 00:00:00 2022-06-12 00:00:00 Telephone Sangeeta Snyder [facility] 1..114 350.1.13.10 4.2.7.2.686 [id number] [facility] 2022-04-05 14:55:00 2022-04-05 15:21:00 Emergency X MALORIE DE LA O [facility] ERT [id number] [facility] 2022-04-05 14:55:00 2022-04-05 15:21:00 Emergency Dallin Malorie Angely [facility] 1.2.840.114 350.1.13.10 4.2.7.2.686 [id number] [facility] 2022-03-20 13:45:00 2022-03-20 14:15:00 Office Visit Sangeeta Snyder [facility] 1.2840.114 350.1.13.10 4.2.7.2.686 [id number] [facility] 2022-03-20 13:45:00 2022-03-20 13:45:00 Outpatient R SANGEETA SNYDER [facility] [id number] [facility] 2021-12-13 00:00:00 2021-12-13 00:00:00 Telephone Sangeeta Snyder [facility] 1.2840.114 350.1.13.10 4.2.7.2.686 [id number] [facility] 2021-12-02 15:22:00 2021-12-02 15:34:00 Emergency X KERRI MACIAS [facility] ERT [id number] [facility] 2021-12-02 15:22:00 2021-12-02 15:34:00 Emergency Kerri Macias [facility] 1.2.840.114 350.1.13.10 4.2.7.2.686 [id number] [facility] 2021-09-04 11:04:00 2021-09-04 13:48:00 Emergency X KEN, VIN [facility] ERT [id number] [facility] 2021-09-04 11:04:00 2021-09-04 13:48:00 Emergency Vin Ken [facility] 1.2.840.114 350.1.13.10 4.2.7.2.686 [id number] [facility] 2021-06-29 13:37:33 2021-06-29 23:59:00 Outpatient R BERNADINE BOSWELL [facility] [id number] [facility] 2021-06-29 13:37:33 2021-06-29 23:59:00 Hospital Encounter Bernadine Boswell [facility] 1.2.840.114 350.1.13.10 4.2.7.2.686 [id number] [facility] 2021-06-29 00:00:00 2021-06-29 00:00:00 Orders Only Doctor Unassigned, Stuart [facility] 1.2.840.114 350.1.13.10 4.2.7.2.686 [id number] [facility] 2021-06-13 14:00:00 2021-06-13 15:05:56 Office Visit Bernadine Boswell [facility] 1.2.840.114 350.1.13.10 4.2.7.2.686 [id number] [facility] 2021-06-13 14:00:00 2021-06-13 15:05:56 Outpatient R BERNADINE BOSWELL [facility] [id number] [facility] 2021-06-13 14:00:00 2021-06-13 14:00:00 Outpatient R BERNADINE BOSWELL [facility] [id number] [facility] 2021-06-13 00:00:00 2021-06-13 00:00:00 Orders Only Doctor Unassigned, Stuart [facility] 1.2.840.114 350.1.13.10 4.2.7.2.686 [id number] [facility] 2021-06-06 00:00:00 2021-06-06 00:00:00 Pre Visit Outreach Yessy Jeffries 1.2.840.114 350.1.13.10 4.2.7.2.686 [id number] [facility] 2021-04-09 13:43:00 2021-04-09 21:50:00 Emergency X Jorge YANG [facility] ERT [id number] [facility] 2021-04-09 13:43:00 2021-04-09 21:50:00 Emergency Jorge Yang [facility] 1.2840.114 350.1.13.10 4.2.7.2.686 [id number] [facility] 2021-04-09 00:00:00 2021-04-09 00:00:00 Orders Only Doctor Unassigned, Stuart [facility] 1.2840.114 350.1.13.10 4.2.7.2.686 [id number] [facility] 2021-03-31 13:30:00 2021-03-31 13:30:00 Outpatient MADDY ISAACS [facility] [id number] [facility] 2021-03-27 00:00:00 2021-03-27 00:00:00 Letter (Out) Symone Blair [facility] 1.2840.114 350.1.13.10 4.2.7.2.686 [id number] [facility] 2021-03-26 12:43:00 2021-03-26 13:31:00 Emergency X VIN KEN [facility] ERT [id number] [facility] 2021-03-26 12:43:00 2021-03-26 13:31:00 Emergency Vin Ken [facility] 1.2.840.114 350.1.13.10 4.2.7.2.686 [id number] [facility] 2021-03-26 00:00:00 2021-03-26 00:00:00 Orders Only Doctor Unassigned, Stuart [facility] 1.2.840.114 350.1.13.10 4.2.7.2.686 [id number] [facility] Results Test Description Test Time Test Comments Results Result Co mments Source [facility] WITH [id number] 17:21:56* Test Item Value Reference Range Interpretation Comme nts WBC (test code = 6690-2) See_Comment [Automated messa ge] The system which generated this result transmitted reference range: 4.30 - 11.10 10*3/?L. The reference range was not used to interpret this result as normal/abnormal. RBC (test code = 789-8) See_Comment [Automated messa ge] The system which generated this result [...] 33.3 g/dL 31.6-35.1 RDW-SD (test code = 31111-6) 38.0 fL 39-49.9 L RDW-CV (test code = 788-0) 11.4 % 12-15.5 L PLT (test code = 777-3) See_Comment [Automated messa ge] The system which generated this result transmitted reference range: 166 - 358 10*3/?L. The reference range was not used to interpret this result as normal/abnormal. MPV (test code = 41795-5) 9.1 fL 9.5-12.9 L NRBC/100 WBC (test code = 5184655304) See_Comment [Automated me ssage] The system which generated this result transmitted reference range: 0.0 - 10.0 /100 WBCs. The reference range was not used to interpret this result as normal/abnormal. NRBC x10^3 (test code = 1147434756) See_Comment [Automated messa ge] The system which generated this result transmitted reference range: 10*3/?L. The reference range was not used to interpret this result as normal/abnormal. GRAN MAT (NEUT) % (test code = 770-8) 75.3 % IMM GRAN % (test code = 3164198265) 0.30 % LYMPH % (test code = 736-9) 14.0 % MONO % (test code = 5905-5) 7.2 % EOS % (test code = 713-8) 2.7 % BASO % (test code = 706-2) 0.5 % GRAN MAT x10^3(ANC) (test code = 3100789623) 7.45 10*3/uL 1.88-7.09 H IMM GRAN x10^3 (test code = 4279923243) 0.03 10*3/uL 0-0.06 LYMPH x10^3 (test code = 731-0) 1.38 10*3/uL 1.32-3.29 MONO x10^3 (test code = 742-7) 0.71 10*3/uL 0.33-0.92 EOS x10^3 (test code = 711-2) 0.27 10*3/uL 0.03-0.39 BASO x10^3 (test code = 704-7) 0.05 10*3/uL 0.01-0.07 Lab Interpretation (test code = 68435-4) Abnormal [facility]
--- NOTE | 2024-02-21 09:59 | RAD REPORT ---
Exam:C Spine Ap/Lat CLINICAL INDICATION: Neck pain Findings: No fracture or dislocation seen. Slight posterior subluxation C2 on C3. Mild anterior subluxation C5 on C6. Bones are osteoporotic Mild spondylosis is present
--- NOTE | 2024-02-21 10:00 | RAD REPORT ---
Exam:Shoulder Left 2+ Views HISTORY: Left shoulder pain FINDINGS: No fracture or dislocation seen. Osteoporosis. Mild osteoarthritis AC joint.
[2024-02-21] MEDS ORDERED: KETOROLAC 30 MG/ML INJ ONE (10:05)
[2024-02-21] MEDS ORDERED: dexAMETHasone 10 MG/ML VIAL ONE (10:05)
[2024-02-21] MEDS ORDERED: ONDANSETRON 4 MG/2 ML VIAL ONE (10:05)
[2024-02-21 10:16] LABS: Absolute Basophils 0.1 K/uL (0-0.5); Absolute Eosinophils 0.4 K/uL (0-0.5); Absolute Lymphocytes (CBC) 1.1 K/uL (0.7-4.9); Absolute Monocytes 0.8 K/uL (0.1-1.3); Absolute Neutrophil 7.7 K/uL (1.8-8.0); Basophils % 0.7 % (0-1.3); Eosinophils % 3.8 % (0-4.4); Hematocrit 42.7 % (36.0-45.0); Hemoglobin 14.5 g/dL (12.0-15.0); Lymphocytes % 11.3 % (15.3-44.8); MCH 31.3 pg (27.0-35.0); MCHC 33.9 g/dL (32.0-36.0); MCV 92.4 fL (80-100); MPV 7.4 fL (7.6-11.3); Monocytes % 7.6 % (3.3-12.3); Neutrophils % 76.6 % (41.7-73.7); Nucleated Red Blood Cells % 0.1 % (0-0); Platelets 319 thou/uL (152-406); RBC Red Blood Cell Count 4.62 M/uL (3.86-4.86); Red Cell Distribution Width 12.3 % (12.1-15.2)
[2024-02-21 10:31] LABS: Albumin 3.6 g/dL (3.4-5.0); Anion Gap 7.7 mEq/L (5.0-15.0); Bilirubin Total 0.4 mg/dL (0.2-1.0); Globulin 3.6 g/dL (2.3-3.5); Potassium 3.7 mEq/L (3.5-5.1); Protein, Total 7.2 g/dL (6.4-8.2)
--- NOTE | 2024-02-21 10:37 | ER ---
Nurse's Notes [facility] Name: Jayda Hernandez Age: 74 yrs Sex: Female : 1950 Arrival Date: 02/21/2024 Time: 09:05 Bed 19 Private MD: Diagnosis: Pain in left shoulder;Unspecified symptoms and signs involving the musculoskeletal system;Radiculopathy, cervical region;Radiculopathy, cervicothoracic region Presentation: 02/20 09:13 Chief complaint: Patient states: had sharp pain in left shoulder and the pain radiated iw into her left hand . the pain has resolved but she just wants to get checked, she was lifting heavy boxes around [place] time. Coronavirus screen: At this time, the client does not indicate any symptoms associated with coronavirus-19. Ebola Screen: No symptoms or risks identified at this time. Initial Sepsis Screen: Does the patient meet any 2 criteria? No. Patient's initial sepsis screen is negative. Does the patient have a suspected source of infection? No. Patient's initial sepsis screen is negative. Risk Assessment: Do you want to hurt yourself or someone else? Patient reports no desire to harm self or others. Onset of symptoms was February 18, 2024. 09:13 Method Of Arrival: Ambulatory iw 09:13 Acuity: MACHO 4 iw 09:30 Acuity: MACHO 3 iw Historical: - Allergies: 09:14 PENICILLINS; iw 09:14 Erythromycin; iw - PMHx: 09:14 Hypertension; Hypothyroidism; iw - PSHx: 09:14 Cholecystectomy; iw - Immunization history:: Adult Immunizations not up to date. - Infectious Disease History:: Denies. - Social history:: Smoking status: Patient denies any tobacco usage or history of. - Family history:: not pertinent. Screenin:18 [facility] ED Fall Risk Assessment (Adult) History of falling in the last 3 months, iw including since admission No falls in past 3 months (0 pts) Confusion or Disorientation No (0 pts) Intoxicated or Sedated No (0 pts) Impaired Gait No (0 pts) Mobility Assist Device Used No (0 pt) Altered Elimination No (0 pt) Score/Fall Risk Level 0 - 2 = Low Risk Oriented to surroundings, Maintained a safe environment. Abuse screen: Denies threats or abuse. Nutritional screening: No deficits noted. Tuberculosis screening: No symptoms or risk factors identified. Assessment: 09:15 General: Appears in no apparent distress. Behavior is calm, cooperative. Pain: iw Complains of pain in anterior aspect of left shoulder and posterior aspect of left shoulder Pain currently is 5 out of 10 on a pain scale. Neuro: Level of Consciousness is awake, alert, obeys commands, Oriented to person, place, time, situation, Moves all extremities. Cardiovascular: Patient's skin is warm and dry. Respiratory: Respiratory effort is even, unlabored, Respiratory pattern is regular. Derm: Skin is intact, is healthy with good turgor. Musculoskeletal: Range of motion: limited in left shoulder. 10:17 Reassessment: Patient appears in no apparent distress at this time. Patient and/or iw family updated on plan of care and expected duration. Pain level reassessed. Patient is alert, oriented x 3, equal unlabored respirations, skin warm/dry/pink. 11:01 Reassessment: Patient appears in no apparent distress at this time. Patient and/or db family updated on plan of care and expected duration. Pain level reassessed. Patient is alert, oriented x 3, equal unlabored respirations, skin warm/dry/pink. Vital Signs: 09:13 BP 174 / 81; Pulse 79; Resp 16; Temp 97.1; Pulse Ox 97% on R/A; Weight 71.21 kg; Height iw 5 ft. 2 in. ; Pain 0/10; 11:01 BP 172 / 80; Pulse 78; Resp 16; Pulse Ox 98% ; db 09:13 Body Mass Index 28.72 (71.21 kg, 157.48 cm) iw 09:13 Pain Scale: Adult iw ED Course: 09:07 Patient arrived in ED. mr 09:14 David Jacobson MD is Attending Physician. ximena 09:14 Triage completed. iw 09:15 Arm band placed on. iw 09:49 C Spine Ap/Lat XRAY In Process Unspecified. EDMS 09:49 Shoulder Left (2 View) XRAY In Process Unspecified. EDMS 09:49 Agnieszka Zamarripa, RN is Primary Nurse. iw 10:00 Initial lab(s) drawn, by me, sent to lab. Inserted saline lock: 24 gauge in right hand, iw using aseptic technique. Blood collected. Flushed with 10 mL NS. 10:18 Patient has correct armband on for positive identification. iw 10:37 Mukesh Gillette MD is Referral Physician. [facility] 11:01 Provided Education on: DISCHARGE AND FOLLOWUP. db 11:01 Sling applied to left arm. db 11:01 No provider procedures requiring assistance completed. IV discontinued, intact, db bleeding controlled, No redness/swelling at site. Administered Medications: 10:14 Drug: Ketorolac IVP 15 mg IVP once Route: IVP; Site: right hand; iw 11:04 Follow up: Response: No adverse reaction db 10:14 Drug: Ondansetron IVP 4 mg IVP once; over 2 minutes Route: IVP; Site: right hand; iw 11:05 Follow up: Response: No adverse reaction db 10:14 Drug: Decadron - Dexamethasone IVP 10 mg IVP once Route: IVP; Site: right hand; iw 11:03 Follow up: Response: No adverse reaction db Medication: 11:01 VIS not applicable for this client. db Outcome: 10:37 Discharge ordered by . [facility] 11:01 Discharged to home ambulatory, db 11:01 Condition: stable 11:01 Discharge instructions given to patient, Instructed on discharge instructions, follow up and referral plans. Prescriptions given X 3, 11:06 Patient left the ED. db Signatures: Dispatcher [employer] EDDavid Payton MD MD cha Rivera, Mary, Reg Reg mr Agnieszka Zamarripa, RN RN iw Fariba Joy RN RN db
--- NOTE | 2024-02-21 10:37 | EDPHYS ---
Physician Documentation [facility] Name: Jayda Hernandez Age: 74 yrs Sex: Female : 1950 Arrival Date: 02/21/2024 Time: 09:05 Bed 19 Private MD: ED Physician David Jacobson HPI: 02/20 10:03 This 74 yrs old Female presents to ER via Ambulatory with complaints of ximena Shoulder Pain. 10:03 The patient or guardian complains of decreased range of motion, pain, that is acute. ximena right shoulder. Context: The problem was sustained at an unknown site. Onset: The symptoms/episode began/occurred 2 day(s) ago. Modifying factors: the symptoms are alleviated by remaining still. Associated signs and symptoms: The patient has no apparent associated signs or symptoms. Severity of symptoms: At their worst the symptoms were moderate, in the emergency department the symptoms are unchanged. Treatment prior to arrival includes: no previous treatment. The patient has not experienced similar symptoms in the past. Historical: - Allergies: 09:14 PENICILLINS; iw 09:14 Erythromycin; iw - PMHx: 09:14 Hypertension; Hypothyroidism; iw - PSHx: 09:14 Cholecystectomy; iw - Immunization history:: Adult Immunizations not up to date. - Infectious Disease History:: Denies. - Social history:: Smoking status: Patient denies any tobacco usage or history of. - Family history:: not pertinent. ROS: 10:03 MS/extremity: Positive for decreased range of motion, ximena 10:33 Constitutional: Negative for fever, chills, and weight loss, Eyes: Negative for injury, ximena pain, redness, and discharge, ENT: Negative for injury, pain, and discharge, Neck: Negative for injury, pain, and swelling, Cardiovascular: Negative for chest pain, palpitations, and edema, Respiratory: Negative for shortness of breath, cough, wheezing, and pleuritic chest pain, Abdomen/GI: Negative for abdominal pain, nausea, vomiting, diarrhea, and constipation, Back: Negative for injury and pain, : Negative for injury, bleeding, discharge, and swelling, Skin: Negative for injury, rash, and discoloration, Neuro: Negative for headache, weakness, numbness, tingling, and seizure, Psych: Negative for depression, anxiety, suicide ideation, homicidal ideation, and hallucinations, Allergy/Immunology: Negative for hives, rash, and allergies, Endocrine: Negative for neck swelling, polydipsia, polyuria, polyphagia, and marked weight changes, Hematologic/Lymphatic: Negative for swollen nodes, abnormal bleeding, and unusual bruising, 10:33 MS/extremity: Positive for pain, of the anterior aspect of left shoulder and posterior aspect of left shoulder, Exam: 10:28 Constitutional: This is a well developed, well nourished patient who is awake, alert, ximena and in no acute distress. Head/Face: Normocephalic, atraumatic. Eyes: Pupils equal round and reactive to light, extra-ocular motions intact. Lids and lashes normal. Conjunctiva and sclera are non-icteric and not injected. Cornea within normal limits. Periorbital areas with no swelling, redness, or edema. ENT: Nares patent. No nasal discharge, no septal abnormalities noted. Tympanic membranes are normal and external auditory canals are clear. Oropharynx with no redness, swelling, or masses, exudates, or evidence of obstruction, uvula midline. Mucous membranes moist. Neck: Trachea midline, no thyromegaly or masses palpated, and no cervical lymphadenopathy. Supple, full range of motion without nuchal rigidity, or vertebral point tenderness. No Meningismus. Chest/axilla: Normal chest wall appearance and motion. Nontender with no deformity. No lesions are appreciated. Cardiovascular: Regular rate and rhythm with a normal S1 and S2. No gallops, murmurs, or rubs. Normal PMI, no JVD. No pulse deficits. Respiratory: Lungs have equal breath sounds bilaterally, clear to auscultation and percussion. No rales, rhonchi or wheezes noted. No increased work of breathing, no retractions or nasal flaring. Abdomen/GI: Soft, non-tender, with normal bowel sounds. No distension or tympany. No guarding or rebound. No evidence of tenderness throughout. Back: No spinal tenderness. No costovertebral tenderness. Full range of motion. Skin: Warm, dry with normal turgor. Normal color with no rashes, no lesions, and no evidence of cellulitis. Neuro: Awake and alert, GCS 15, oriented to person, place, time, and situation. Cranial nerves II-XII grossly intact. Motor strength 5/5 in all extremities. Sensory grossly intact. Cerebellar exam normal. Normal gait. Psych: Awake, alert, with orientation to person, place and time. Behavior, mood, and affect are within normal limits. 10:28 ECG was reviewed by the Attending Physician. 10:28 Musculoskeletal/extremity: Extremities: grossly normal except: noted in the anterior aspect of left shoulder and posterior aspect of left shoulder: decreased ROM, pain, 10:33 Musculoskeletal/extremity: DVT Exam: No signs of deep vein thrombosis. no pain, no ximena swelling, no tenderness, negative Homans' sign noted on exam, no appreciated bluish discoloration, no erythema, no increased warmth, Vital Signs: 09:13 BP 174 / 81; Pulse 79; Resp 16; Temp 97.1; Pulse Ox 97% on R/A; Weight 71.21 kg; Height iw 5 ft. 2 in. ; Pain 0/10; 11:01 BP 172 / 80; Pulse 78; Resp 16; Pulse Ox 98% ; db 09:13 Body Mass Index 28.72 (71.21 kg, 157.48 cm) iw 09:13 Pain Scale: Adult iw MDM: 09:14 Medical Screening Exam initiated ximena 10:30 Differential diagnosis: DJD, tendonitis. Data reviewed: vital signs, nurses notes, lab [facility] test result(s), EKG, radiologic studies, plain films. Consideration of Admission/Observation Escalation of care including admission/observation considered. I considered the following discharge prescriptions or medication management in the emergency department Medications were administered in the Emergency Department. See MAR. Independent interpretation of the following test(s) in the Emergency Department EKG: See my EKG interpretation above. Test considered but Not performed: X-ray: no cxr. Historians other than the Patient: pt well informed. Care significantly affected by the following chronic conditions: Hypertension, Obesity, hypothyroid. 02/20 09:24 Order name: Troponin High Sensitivity; Complete Time: 10:36 [facility] 02/20 09:24 Order name: CBC with Diff; Complete Time: 10: [facility] 02/20 09:24 Order name: Comprehensive Metabolic Panel; Complete Time: :36 [facility] 02/20 09:23 Order name: C Spine Ap/Lat XRAY; Complete Time: 10: [facility] 02/20 09:24 Order name: Shoulder Left (2 View) XRAY; Complete Time: 10: [facility] 01/02 09:24 Order name: EKG; Complete Time: 09:24 ximena 02/20 09:24 Order name: EKG - Nurse/Tech; Complete Time: 10:16 ximena 02/20 10:36 Order name: Sling; Complete Time: 11:01 [facility] EC:28 Rate is 82 beats/min. Rhythm is regular. QRS [place] is Normal. WI interval is normal. QRS ximena interval is normal. QT interval is normal. No Q waves. T waves are Normal. No ST changes noted. Clinical impression: NSR w/ Non-specific ST/T Changes and No evidence of ischemia. Interpreted by me. Reviewed by me. Administered Medications: 10:14 Drug: Ketorolac IVP 15 mg IVP once Route: IVP; Site: right hand; iw 11:04 Follow up: Response: No adverse reaction db 10:14 Drug: Ondansetron IVP 4 mg IVP once; over 2 minutes Route: IVP; Site: right hand; iw 11:05 Follow up: Response: No adverse reaction db 10:14 Drug: Decadron - Dexamethasone IVP 10 mg IVP once Route: IVP; Site: right hand; iw 11:03 Follow up: Response: No adverse reaction db Disposition Summary: 02/21/24 10:37 Discharge Ordered Notes: Location: Home ximena Problem: new ximena Symptoms: have improved ximena Condition: Stable ximena Diagnosis - Pain in left shoulder ximena - Unspecified symptoms and signs involving the musculoskeletal system ximena - Radiculopathy, cervical region ximena - Radiculopathy, cervicothoracic region ximena Followup: ximena - With: Private Physician - When: 2 - 3 days - Reason: Recheck today's complaints, Continuance of care, Re-evaluation by your physician Followup: ximena - With: Mukesh Gillette MD - When: 2 - 3 days - Reason: Recheck today's complaints, Re-evaluation by your physician Discharge Instructions: - Discharge Summary Sheet ximena - Joint Pain ximena - Arthritis ximena - Musculoskeletal Pain ximena - Shoulder Pain ximena - How to Use Cold Therapy, [id number] ximena - Arthritis, [id number] ximena - How to Use a Sling, [id number] ximena - How to Use Cold Therapy ximena - How to Use a Sling ximena Forms: - Medication Reconciliation Form ximena - Antibiotic Education ximena - Prescription Opioid Use ximena - Patient Portal Instructions ximena - Leadership Thank You Letter [facility] Prescriptions: - Medrol (Jhonatan) 4 mg Oral Tablets, Dose Pack - take 1 tablet ORAL route as directed - follow package instructions; 1 packet; ximena Refills: 0, Product Selection Permitted - Motrin IB 200 mg Oral tablet - take 2 tablet ORAL route every 6 hours As needed as needed with food; 30 ximena tablet; Refills: 0, Product Selection Permitted - methocarbamol 750 mg Oral tablet - take 1 tablet ORAL route every 6 hours; 28 tablet; Refills: 0, Product ximena Selection Permitted Signatures: Dispatcher [employer] David Chew MD MD cha Williams, Irene, RN RN iw Fariba Joy RN db Corrections: (The following items were deleted from the chart) 10:08 10:03 Constitutional: Negative for fever, chills, and weight loss, Eyes: Negative for ximena injury, pain, redness, and discharge, ENT: Negative for injury, pain, and discharge, Neck: Negative for injury, pain, and swelling, Cardiovascular: Negative for chest pain, palpitations, and edema, Respiratory: Negative for shortness of breath, cough, wheezing, and pleuritic chest pain, Abdomen/GI: Negative for abdominal pain, nausea, vomiting, diarrhea, and constipation, Back: Negative for injury and pain, : Negative for injury, bleeding, discharge, and swelling, Skin: Negative for injury, rash, and discoloration, Neuro: Negative for headache, weakness, numbness, tingling, and seizure, Psych: Negative for depression, anxiety, suicide ideation, homicidal ideation, and hallucinations, Allergy/Immunology: Negative for hives, rash, and allergies, Endocrine: Negative for neck swelling, polydipsia, polyuria, polyphagia, and marked weight changes, Hematologic/Lymphatic: Negative for swollen nodes, abnormal bleeding, and unusual bruising, ximena
[2024-02-21 11:20] VITALS: TEMP 97.1
[2024-02-21 11:23] VITALS: BP 172/80; O2SAT 98
--- NOTE | 2024-02-22 12:43 | EKG ---
Test Date: 2024-02-21 Test Time: 10:14:42 [employer]odmare Foreman: RHIANNON MEASUREMENT RESULTS: Intervals: Rate: 82 MA: 148 QRSD: 74 QT: 422 QTc: 493 [place]: P: 41 MA: 148 QRS: 65 T: -83 INTERPRETIVE STATEMENTS: Normal sinus rhythm Cannot rule out Anterior infarct, age undetermined Abnormal ECG Compared to ECG 11/06/2023 10:55:27 No significant changes Electronically Signed On 02-22-24 12:41:05 DISC JOCKEY by Joaquim Gannon
== END 2024-02-21 11:06 | disposition home or self-care (01) ==
LOC: ER 09:05
DX: M25.512 Pain in left shoulder (principal); M54.13 Radiculopathy, cervicothoracic region; R29.91 Unspecified symptoms and signs involving the musculoskeletal system; I10 Essential (primary) hypertension; E03.9 Hypothyroidism, unspecified; Z88.0 Allergy status to penicillin; Z88.1 Allergy status to other antibiotic agents
CPT/HCPCS: 93005; 85025; 36415; 84484; 80053; 72040; 73030; 96375; 96374; 99284; J1100; J2405

== ENCOUNTER 2024-03-15 09:27 | Inpatient (IN) | payer OTHER ==
--- OUTSIDE RECORDS SUMMARY | 2024-03-15 09:35 | XMS REPORT | Continuity of Care Document ---
Author Name Unknown Address [address] [facility] [place] [address] [facility] Address [address] [facility] [address] [place] [address] Care Team Providers Care Spanish Tutor Name Role Phone Bette BRINK, [facility] Primary Care Physician [phone] [email or web address] Attending Clinician Unavaila renetta Doctor Unassigned, [place] Attending Clinician U Sangeeta Lewis NP Attending Clinician [phone] MALORIE DE LA O Attending Clinician Unavailab Malorie Stephen DO Attending Clinician [phone] SANGEETA SNYDER Attending Clinician Unavaila KERRI Brian Attending Clinician Unavailable Kerri Macias DO Attending Clinician [phone] VIN KEN Attending Clinician Unavailable Vin Ruiz Attending Clinician [phone] BERNADINE BOSWELL Attending Clinician Unavailable Bernadine Boswell MD Attending Clinician [phone] Yessy Jeffries MA Attending Clinician UnavailJorge Hirsch Attending Clinician Unavailable Jorge Soni Attending Clinician [phone] DENITA WARE Attending Clinician Unavailable Johnnie PAGE, [...] in female Disease Active 03-20 00:00: 00 [facility] 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 Disease Active 03-20 00:00: 00 [facility] BMI 28.0-28.9, adult BMI 28.0-28.9, adult Disease Active 03-20 00:00: 00 [facility] BV (bacterial vaginosis) BV (bacterial vaginosis) Disease Active 10-20 00:00: 00 [facility] Vulvar lesion Vulvar lesion Disease Active 10-19 00:00: 00 [facility] Uncontroll ed hypertensi on Uncontroll ed hypertensi on Disease Active 06-23 00:00: 00 [facility] Essential hypertensi on, benign Essential hypertensi on, benign Disease Active 05-13 00:00: 00 [facility] 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 Noted on CT scan on 01/19/15 [facility] Vaginal pruritus Vaginal pruritus Disease Active 02-25 00:00: 00 [facility] Lichen sclerosus Lichen sclerosus Disease Active 02-25 00:00: 00 [facility] Vaginal lesion Vaginal lesion Disease Active 02-25 00:00: 00 [facility] Vaginal atrophy Vaginal atrophy Disease Active 02-25 00:00: 00 [facility] Cystocele, midline Cystocele, midline Disease Active 02-25 00:00: 00 [facility] Urinary incontinen ce without sensory awareness Urinary incontinen ce without sensory awareness Disease Active 02-25 00:00: 00 [facility] 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 not amounting to dementia Disease Active 02-25 00:00: 00 [facility] Temporal arteritis Temporal arteritis Disease Active 2014-02 00:00: 00 [facility] Hypertensi ve crisis Hypertensi ve crisis Disease Active 2014-02 00:00: 00 [facility] Encounter for screening mammogram for breast cancer Encounter for screening mammogram for breast cancer Problem Active [facility] Encounter for gynecologi tiffany examinatio n without abnormal finding Encounter for gynecologi tiffany examinatio n without abnormal finding Problem Active [facility] Mixed incontinen ce Mixed incontinen ce Problem Active [facility] Adhesive capsulitis of right shoulder Adhesive capsulitis of right shoulder Problem Active [facility] Lateral epicondyli tis, right elbow Lateral epicondyli tis, right elbow Problem Active [facility] History of hysterecto my for benign disease History of hysterecto my for benign disease Problem Active [facility] Postmenopa usal atrophic vaginitis Postmenopa usal atrophic vaginitis Problem Active [facility] Pain in joint of right elbow Pain in joint of right elbow Problem Active [facility] 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 Problem Active [facility] Allergies, Adverse Reactions, Alerts Allergy Name Allergy Type Status Severity Reaction(s) Onset Date Inactive Date Treating Clinician Comments Source Penicill ins Propensi ty to adverse reaction s Active Unknown - See comments 07-26 00:00: 00 [facility] ERYTHROM YCIN DRUG Active Med Rash 07-26 00:00: 00 [facility] PENICILL INS Drug Class Active Unknown-Cmnt 07-26 00:00: 00 [facility] Penicill ins Propensi ty to adverse reaction s Active Unknown - See comments 07-26 00:00: 00 [facility] Erythrom ycin Propensi ty to adverse reaction s to drug Active Rash 07-26 00:00: 00 blisters [facility] penicill in Adverse Reaction Active Info Not Available [facility] Erythrom ycin Adverse Reaction Active Info Not Available [facility] Social History Social Habit Start Date Stop Date Quantity Comments Source Exposure to SARS-CoV-2 (event) 2022-03-26 00:00:00 2022-04-05 14:53:00 Not sure [facility] Alcohol intake 2022-04-05 00:00:00 2022-04-05 00:00:00 0 /d [facility] Sex Assigned At 1950 00:00:00 1950 00:00:00 [facility] Smoking Status Start Date Stop Date Source Never smoked tobacco [facility] Medications Ordered Medication Name Filled Medication Name Start Date Stop Date Current Medication? Ordering Clinician Indication Dosage Frequency Signature (SIG) Comments Components Source amLODIPine 2.5 mg tablet 02-24 00:00: 00 Yes [facility] levothyroxi ne 25 mcg tablet 2021-02 00:00: 00 Yes [facility] meloxicam 7.5 mg tablet 2021-02 00:00: 00 Yes [facility] spironolact one 25 mg tablet 2021-02 00:00: 00 Yes [facility] naproxen sodium 550 mg tablet 2021-02 00:00: 00 Yes [id number] 550mg Take 1 tablet by mouth in the morning and 1 tablet in the evening. Take with meals. [facility] methylPREDN ISolone 4 mg tablets 2021-02 00:00: 00 Yes [id number] Take by mouth SEE-INSTRU CTIONS. follow package directions [facility] methocarbam oL 500 mg tablet 2021-02 00:00: 00 12-08 04:59 :00 No [id number] 500mg Take 1 tablet by mouth in the morning and 1 tablet at noon and 1 tablet in the evening. Do all this for 5 days. [facility] Nitrofurant oin&Nit. Macrocryst 100 mg capsule 09-04 00:00: 00 Yes [id number] 100mg Take 1 capsule by mouth in the morning and 1 capsule in the evening. [facility] valsartan-h ydrochlorot hiazide 320-12.5 mg per tablet - 00:00: 00 Yes [facility] albuterol 90 mcg/actuati on inhaler 04-09 00:00: 00 Yes [id number] 2{puff} Inhale 2 Puffs every 4 (four) hours as needed for Wheezing or Shortness of Breath. [facility] albuterol 2.5 mg /3 mL (0.083 %) nebulizer solution 04-09 00:00: 00 Yes [id number] 2.5mg Inhale 3 mL every 4 (four) hours as needed for Wheezing or Shortness of Breath. [facility] benzonatate 200 mg capsule 04-09 00:00: 00 Yes [id number] 200mg Take 1 capsule by mouth 3 (three) times daily as needed for Cough for up to 20 doses. [facility] Clobex Clobex 2018-02 00:00: 00 02-14 00:00 :00 No Denita Oscar 1 applicatio n [facility] Vital Signs Vital Name Observation Time Observation Value Comments S arminda Systolic blood pressure 2022-04-05 20:53:00 167 mm[Hg] [facility] Diastolic blood pressure 2022-04-05 20:53:00 87 mm[Hg] [facility] Heart rate 2022-04-05 20:53:00 102 /min [facility] Body temperature 2022-04-05 20:53:00 37.72 Nicol [facility] Respiratory rate 2022-04-05 20:53:00 20 /min [facility] Body height 2022-04-05 20:53:[address] [facility] Body weight 2022-04-05 20:53:00 69.854 kg [facility] BMI 2022-04-05 20:53:00 28.17 kg/m2 [facility] Oxygen saturation in Arterial blood by Pulse oximetry 2022-04-05 20:53:00 98 /min [facility] Systolic blood pressure 2022-03-20 19:54:00 159 mm[Hg] [facility] Diastolic blood pressure 2022-03-20 19:54:00 74 mm[Hg] [facility] Heart rate 2022-03-20 19:54:00 92 /min Un[facility] Body temperature 2022-03-20 19:54:00 36.78 Nicol [facility] Respiratory rate 2022-03-20 19:54:00 19 /min [facility] Body height 2022-03-20 19:54:[address] [facility] Body weight 2022-03-20 19:54:[address] [facility] BMI 2022-03-20 19:54:00 28.17 kg/m2 [facility] Systolic blood pressure 2021-12-02 20:20:00 159 mm[Hg] [facility] Diastolic blood pressure 2021-12-02 20:20:00 68 mm[Hg] [facility] Heart rate 2021-12-02 20:20:00 86 /min [facility] Body temperature 2021-12-02 20:20:00 37.17 Nicol [facility] Respiratory rate 2021-12-02 20:20:00 18 /min [facility] Body height 2021-12-02 20:20:[address] [facility] Body weight 2021-12-02 20:20:[address] [facility] BMI 2021-12-02 20:20:00 28.72 kg/m2 [facility] Oxygen saturation in Arterial blood by Pulse oximetry 2021-12-02 20:20:00 96 /min [facility] Systolic blood pressure 2021-09-04 18:47:00 161 mm[Hg] [facility] Diastolic blood pressure 2021-09-04 18:47:00 81 mm[Hg] [facility] Heart rate 2021-09-04 18:47:00 71 /min [facility] Respiratory rate 2021-09-04 18:47:00 18 /min [facility] Oxygen saturation in Arterial blood by Pulse oximetry 2021-09-04 18:47:00 97 /min [facility] Body temperature 2021-09-04 16:03:00 37.5 Nicol [facility] Body height 2021-09-04 16:03:[address] [facility] Body weight 2021-09-04 16:03:[address] [facility] BMI 2021-09-04 16:03:00 28.72 kg/m2 [facility] Systolic blood pressure 2021-06-13 19:40:00 151 mm[Hg] [facility] Diastolic blood pressure 2021-06-13 19:40:00 87 mm[Hg] [facility] Heart rate 2021-06-13 19:33:00 91 /min [facility] Body temperature 2021-06-13 19:33:00 36.61 Nicol [facility] Respiratory rate 2021-06-13 19:33:00 16 /min [facility] Body height 2021-06-13 19:33:[address] [facility] Body weight 2021-06-13 19:33:[address] [facility] BMI 2021-06-13 19:33:00 28.75 kg/m2 [facility] Oxygen saturation in Arterial blood by Pulse oximetry 2021-06-13 19:33:00 95 /min [facility] Procedures Procedure Date / Time Performed Performing Clinician Source OP CORRESPONDENCE 2022-06-13 05:01:00 Doctor Prerna ssigned, [place] [facility] RAPID STREP SCREEN FOR GROUP A 2022-04-05 20:56:00 Malorie De La O [facility] CONSENT/REFUSAL FOR DIAGNOSIS AND TREATMENT 2022-04-05 20:44:25 Doctor Unassigned, [place] [facility] ASSIGNMENT OF BENEFITS 2021-12-02 20:27:27 Docto r Unassigned, [place] [facility] CONSENT/REFUSAL FOR DIAGNOSIS AND TREATMENT 2021-12-02 19:59:35 Doctor Unassigned, [place] [facility] COMP. METABOLIC PANEL ([id number]) 2021-09-04 16:51:00 Vin Ken [facility] CBC WITH DIFF 2021-09-04 16:51:00 [facility] URINALYSIS 2021-09-04 16:35:00 Vin [facility]REFUSAL FOR DIAGNOSIS AND TREATMENT 2021-09-04 15:52:55 Doctor Unassigned, [place] [facility] ASSIGNMENT OF BENEFITS 2021-06-29 18:36:20 Docto r Unassigned, [place] [facility] Encounters Start Date/Time End Date/Time Encounter Type Admission Type Attending [facility] Care Facility Care Department Encounter ID Source 2022-12-19 00:00:00 2022-12-19 00:00:00 Outpatient GC_GCBZW_Ka diyala_S [facility] [id number] [facility] 2022-06-13 00:00:00 2022-06-13 00:00:00 Orders Only Doctor Unassigned, [place] [facility] 1.2.840.114 350.1.13.10 4.2.7.2.686 [id number] [facility] 2022-06-12 00:00:00 2022-06-12 00:00:00 Telephone Sangeeta Snyder [facility] 1.840.114 350.1.13.10 4.2.7.2.686 [id number] [facility] 2022-04-05 14:55:00 2022-04-05 15:21:00 Emergency X MALORIE DE LA O [facility] ERT [id number] [facility] 2022-04-05 14:55:00 2022-04-05 15:21:00 Emergency Malorie De La O [facility] 1.2.840.114 350.1.13.10 4.2.7.2.686 [id number] [facility] 2022-03-20 13:45:00 2022-03-20 14:15:00 Office Visit Sangeeta Snyder [facility] 1.2.840.114 350.1.13.10 4.2.7.2.686 [id number] [facility] 2022-03-20 13:45:00 2022-03-20 13:45:00 Outpatient R SAMAR[facility]ANGEETA [facility] [id number] [facility] 2021-12-13 00:00:00 2021-12-13 00:00:00 [facility] 1.2.840.114 350.1.13.10 4.2.7.2.686 [id number] [facility] 2021-12-02 15:22:00 2021-12-02 15:34:00 Emergency X MACIASKERRI [facility] ERT [id number] [facility] 2021-12-02 15:22:00 2021-12-02 15:34:00 Emergency Kerri Macias [facility] 1.2.840.114 350.1.13.10 4.2.7.2.686 [id number] [facility] 2021-09-04 11:04:00 2021-09-04 13:48:00 Emergency X VIN KEN [facility] ERT [id number] [facility] 2021-09-04 11:04:00 2021-09-04 13:48:00 Emergency Vin Ken [facility] 1.2.840.114 350.1.13.10 4.2.7.2.686 [id number] [facility] 2021-06-29 13:37:33 2021-06-29 23:59:00 Outpatient R BERNADINE BOSWELL [facility] [id number] [facility] 2021-06-29 13:37:33 2021-06-29 23:59:00 Hospital Encounter Bernadine Boswell [facility] 1.0.114 350.1.13.10 4.2.7.2.686 [id number] [facility] 2021-06-29 00:00:00 2021-06-29 00:00:00 Orders Only Doctor Unassigned, [place] [facility] 1..114 350.1.13.10 4.2.7.2.686 [id number] [facility] 2021-06-13 14:00:00 2021-06-13 15:05:56 Office Visit Bernadine Boswell [facility] 1..114 350.1.13.10 4.2.7.2.686 [id number] [facility] 2021-06-13 14:00:00 2021-06-13 15:05:56 Outpatient R BERNADINE BOSWELL [facility] [id number] [facility] 2021-06-13 14:00:00 2021-06-13 14:00:00 Outpatient R ELSY BERNADINE [facility] [id number] [facility] 2021-06-13 00:00:00 2021-06-13 00:00:00 Orders Only Doctor Unassigned, [place] [facility] 1..114 350.1.13.10 4.2.7.2.686 [id number] [facility] 2021-06-06 00:00:00 2021-06-06 00:00:00 Pre Visit Outreach Yessy Jeffries 1.2840.114 350.1.13.10 4.2.7.2.686 [id number] [facility] 2021-04-09 13:43:00 2021-04-09 21:50:00 Emergency X Jorge YANG [facility] ERT [id number] [facility] 2021-04-09 13:43:00 2021-04-09 21:50:00 Emergency Jorge Yang [facility] 1.2840.114 350.1.13.10 4.2.7.2.686 [id number] [facility] 2021-04-09 00:00:00 2021-04-09 00:00:00 Orders Only Doctor Unassigned, [place] [facility] 1.2840.114 350.1.13.10 4.2.7.2.686 [id number] [facility] 2021-03-31 13:30:00 2021-03-31 13:30:00 Outpatient DENITA ISAACS [facility] [id number] [facility] 2021-03-27 00:00:00 2021-03-27 00:00:00 Letter (Out) Symone Blair [facility] 1.2840.114 350.1.13.10 4.2.7.2.686 [id number] [facility] 2021-03-26 12:43:00 2021-03-26 13:31:00 Emergency X VIN KEN [facility] ERT [id number] [facility] 2021-03-26 12:43:00 2021-03-26 13:31:00 Emergency Vin Ken S [facility] 1.2840.114 350.1.13.10 4.2.7.2.686 [id number] [facility] 2021-03-26 00:00:00 2021-03-26 00:00:00 Orders Only Doctor Unassigned, [place] [facility] 1.2.840.114 350.1.13.10 4.2.7.2.686 [id number] [facility] 2019-02-04 08:48:00 2019-02-04 08:48:00 [facility] [id number] [facility] 2019-01-30 09:26:00 2019-01-30 09:26:00 [facility] [id number] [facility] 2019 09:47:00 2019 09:47:00 [facility] [id number] [facility] 2019-01-27 10:30:00 2019-01-27 10:30:00 [facility] [id number] [facility] Results Test Description Test Time Test Comments Results Result Co mments Source [facility] WITH [id number] 17:21:56* Test Item Value Reference Range Interpretation Comme nts WBC (test code = 6690-2) See_Comment [Automated ticcklea Mbite] The system which generated this result transmitted reference range: 4.30 - 11.10 10*3/?L. The reference range was not used to interpret this result as normal/abnormal. RBC (test code = 789-8) See_Comment [Automated ticcklea ge] The system which generated this result [...] 33.3 g/dL 31.6-35.1 RDW-SD (test code = 76583-6) 38.0 fL 39-49.9 L RDW-CV (test code = 788-0) 11.4 % 12-15.5 L PLT (test code = 777-3) See_Comment [Automated messa ge] The system which generated this result transmitted reference range: 166 - 358 10*3/?L. The reference range was not used to interpret this result as normal/abnormal. MPV (test code = 71155-6) 9.1 fL 9.5-12.9 L NRBC/100 WBC (test code = 8343136938) See_Comment [Automated [employer] ssage] The system which generated this result transmitted reference range: 0.0 - 10.0 /100 WBCs. The reference range was not used to interpret this result as normal/abnormal. NRBC x10^3 (test code = 7235138429) See_Comment [Automated messa ge] The system which generated this result transmitted reference range: 10*3/?L. The reference range was not used to interpret this result as normal/abnormal. GRAN MAT (NEUT) % (test code = 770-8) 75.3 % IMM GRAN % (test code = 6377719599) 0.30 % LYMPH % (test code = 736-9) 14.0 % MONO % (test code = 5905-5) 7.2 % EOS % (test code = 713-8) 2.7 % BASO % (test code = 706-2) 0.5 % GRAN MAT x10^3(ANC) (test code = 7092980410) 7.45 10*3/uL 1.88-7.09 H IMM GRAN x10^3 (test code = 9654103001) 0.03 10*3/uL 0-0.06 LYMPH x10^3 (test code = 731-0) 1.38 10*3/uL 1.32-3.29 MONO x10^3 (test code = 742-7) 0.71 10*3/uL 0.33-0.92 EOS x10^3 (test code = 711-2) 0.27 10*3/uL 0.03-0.39 BASO x10^3 (test code = 704-7) 0.05 10*3/uL 0.01-0.07 Lab Interpretation (test code = 71335-4) Abnormal [facility]
[2024-03-15] MEDS ORDERED: ALBUTEROL 2.5 MG/3 ML NEB SOL ONE (10:17)
[2024-03-15] MEDS ORDERED: IPRATROPIUM BROM 0.5MG/2.5ML ONE (10:17)
--- NOTE | 2024-03-15 10:48 | RAD REPORT ---
Procedure: Chest Single View HISTORY: Cough COMPARISON: October 2023 FINDINGS: Patchy opacities mid and lower left lung. Right lung appears clear. No significant pleural effusion noted. The heart is mildly to moderately enlarged. IMPRESSION: Mild to moderate patchy alveolar opacities left lung probably pneumonia
[2024-03-15 11:13] LABS: Albumin/Globulin Ratio 0.8 (1.1-1.8); Anion Gap 11.6 mEq/L (5.0-15.0); Bilirubin Direct 0.2 mg/dL (0-0.2); Bilirubin Indirect, Calculated 0.2 mg/dL (0.2-0.8); Bilirubin Total 0.4 mg/dL (0.2-1.0); Globulin 3.7 g/dL (2.3-3.5); Potassium 3.6 mEq/L (3.5-5.1); Protein, Total 6.7 g/dL (6.4-8.2); Troponin High Sensitivity 18.1 pg/mL (<58.9)
--- NOTE | 2024-03-15 13:00 | EDPHYS ---
Physician Documentation [facility] Name: Jayda Hernandez Age: 74 yrs Sex: Female : 1950 Arrival Date: 03/15/2024 Time: 09:27 Bed 7 Private MD: ED Physician Alexx Sellers HPI: 03/15 10:30 This 74 yrs old Female presents to ER via Ambulatory with complaints of Cough. rt 10:30 Patient presents to the ED with 2 weeks of a persistent cough, shortness of breath. rt This does tend to worsen at nighttime. Denies exertional component. Patient was prescribed montelukast, prednisone, cetirizine, Tessalon by primary care with no relief. States that the symptoms have persisted and are worsening. Reports of bilateral ear pain during this time. Denies other acute complaints at this time, symptoms are moderate in severity, no other aggravating or alleviating factors.. Historical: - Allergies: 09:50 Erythromycin; hb 09:50 PENICILLINS; hb - PMHx: 09:50 Hypertension; Hypothyroidism; hb - PSHx: 09:50 Cholecystectomy; hb - Immunization history:: Adult Immunizations up to date. - Infectious Disease History:: Denies. - Social history:: Smoking status: Patient denies any tobacco usage or history of. - Family history:: not pertinent. ROS: 10:30 Constitutional: Negative for fever, chills, and weight loss, Neck: Negative for injury, rt pain, and swelling, Cardiovascular: Negative for chest pain, palpitations, and edema, Abdomen/GI: Negative for abdominal pain, nausea, vomiting, diarrhea, and constipation, MS/Extremity: Negative for injury and deformity, Skin: Negative for injury, rash, and discoloration, Neuro: Negative for headache, weakness, numbness, tingling, and seizure, 10:30 ENT: Positive for ear pain, Negative for drainage from ear(s), 10:30 Respiratory: Positive for cough, shortness of breath, Exam: 10:30 Constitutional: This is a well developed, well nourished patient who is awake, alert, rt and in no acute distress. Head/Face: Normocephalic, atraumatic. Chest/axilla: Normal chest wall appearance and motion. Nontender with no deformity. No lesions are appreciated. Cardiovascular: Regular rate and rhythm with a normal S1 and S2. No gallops, murmurs, or rubs. Normal PMI, no JVD. No pulse deficits. Abdomen/GI: Soft, non-tender, with normal bowel sounds. No distension or tympany. No guarding or rebound. No evidence of tenderness throughout. Skin: Warm, dry with normal turgor. Normal color with no rashes, no lesions, and no evidence of cellulitis. MS/ Extremity: Pulses equal, no cyanosis. Neurovascular intact. Full, normal range of motion. 10:30 ENT: Cerumen impaction bilaterally, no signs of otitis media, externa. 10:30 Respiratory: Faint wheezes heard at the bases, no respiratory distress, 10:35 ECG was reviewed by the Attending Physician. rt Vital Signs: 09:47 BP 121 / 68; Pulse 106; Resp 20; Temp 97.9; Pulse Ox 87% on R/A; Weight 71.21 kg; hb Height 5 ft. 2 in. ; Pain 0/10; 09:50 Pulse Ox 95% on 2 lpm NC; aa5 10:25 BP 107 / 76; Pulse 91; Resp 18; Pulse Ox 95% on Nebulizer Mask; ko1 11:03 BP 101 / 58; Pulse 89; Resp 16; Pulse Ox 95% on 2 lpm NC; aa5 12:00 BP 120 / 55; Pulse 91; Resp 18 S; Pulse Ox 94% on 2 lpm NC; aa5 13:28 BP 112 / 61; Pulse 91; Resp 18 S; Pulse Ox 95% on 3 lpm NC; aa5 16:00 BP 115 / 64; Pulse 88; Resp 16 S; Temp 97.8(TE); Pulse Ox 97% on 3 lpm NC; aa5 09:47 Body Mass Index 28.71 (71.21 kg, 157.48 cm) hb 09:47 Pain Scale: Adult hb MDM: 09:59 Medical Screening Exam initiated rt 13:00 Differential Diagnosis: Other Pneumonia, viral syndrome, bronchospasm. Data reviewed: rt vital signs, nurses notes, lab test result(s), EKG, radiologic studies. Consideration of Admission/Observation Patient was admitted/placed on observation. Management of patient was discussed with the following: Hospitalist: Agrees to admit. I considered the following discharge prescriptions or medication management in the emergency department Medications were administered in the Emergency Department. See MAR. Independent interpretation of the following test(s) in the Emergency Department X-Ray: My interpretation is Infiltrates interpretation of x-ray images. Test considered but Not performed: CT: Low suspicion for pulmonary embolism, CT angiogram not indicated. Care significantly affected by the following chronic conditions: Hypertension. Counseling: I had a detailed discussion with the patient and/or guardian regarding the historical points, exam findings, and any diagnostic results supporting the discharge/admit diagnosis, lab results, radiology results, the need for further work-up and treatment in the hospital. Response to treatment: the patient's symptoms have markedly improved after treatment. 03/15 10:11 Order name: Basic Metabolic Panel; Complete Time: 12:38 rt 03/15 10:11 Order name: CBC with Diff rt 03/15 10:11 Order name: LFT's; Complete Time: 12:38 rt 03/15 10:11 Order name: NT PRO-BNP; Complete Time: 12:38 rt 03/15 10:11 Order name: Troponin HS; Complete Time: 12:38 rt 03/15 10:11 Order name: D-Dimer; Complete Time: 12:38 rt 03/15 13:55 Order name: Urinalysis w/ reflexes EDMS 03/15 13:57 Order name: Urinalysis w/ reflexes EDMS 03/15 13:57 Order name: CBC with Automated Diff EDMS 03/15 13:57 Order name: CBC with Automated Diff EDMS 03/15 13:57 Order name: CBC with Automated Diff EDMS 03/15 13:57 Order name: CBC with Automated Diff EDMS 03/15 13:57 Order name: Comprehensive Metabolic Panel EDMS 03/15 13:57 Order name: Comprehensive Metabolic Panel EDMS 03/15 13:57 Order name: Comprehensive Metabolic Panel EDMS 03/15 13:58 Order name: Comprehensive Metabolic Panel EDMS 03/15 13:58 Order name: Magnesium EDMS 03/15 13:58 Order name: Magnesium EDMS 03/15 13:58 Order name: Magnesium EDMS 03/15 13:58 Order name: Magnesium EDMS 03/15 13:58 Order name: Sputum Culture EDMS 03/15 10:11 Order name: XRAY Chest (1 view); Complete Time: 10:50 rt 03/15 13:52 Order name: Chest For Pe Angio; Complete Time: 15:10 EDMS 03/15 10:11 Order name: Cardiac monitoring; Complete Time: 10:15 rt 03/15 10:11 Order name: EKG - Nurse/Tech; Complete Time: 10:35 rt 03/15 10:11 Order name: IV Saline Lock; Complete Time: 10:41 rt 03/15 10:11 Order name: Labs collected and sent; Complete Time: 10:41 rt 03/15 10:11 Order name: O2 Per Protocol; Complete Time: 10:14 rt 03/15 10:11 Order name: O2 Sat Monitoring; Complete Time: 10:14 rt EC:35 Rate is 94 beats/min. Rhythm is regular, Normal Sinus Rhythm with No ectopy. QRS Co[place] rt is Normal. WA interval is normal. QRS interval is normal. QT interval is prolonged at 692 msec. No Q waves. No ST changes noted. Interpreted by me. Administered Medications: 10:20 Drug: Albuterol Inhalation 2.5 mg Inhalation once Route: Inhalation; ko1 10:20 Drug: Ipratropium Inhalation Aerosol 0.5 mg Inhalation once Route: Inhalation; ko1 13:21 Drug: LevaQUIN IVPB 750 mg IVPB once Route: IVPB; Site: right forearm; me1 14:25 Follow up: Response: No adverse reaction; IV Status: Completed infusion aa5 Disposition Summary: 03/15/24 12:59 Hospitalization Ordered Notes: Hospitalization Status: Inpatient Admission rt Provider: Rayray Lucero rt Location: Telemetry/MedSurg (Inpatient) rt Condition: Stable rt Problem: new rt Symptoms: have improved rt Bed/Room Type: Standard rt Room Assignment: 204(03/15/24 16:13) eb Diagnosis - Community-acquired pneumonia rt - Hypoxia rt Forms: - Medication Reconciliation Form rt - SBAR form rt - Leadership Thank You Letter rt Critical care time excluding procedures: 13:00 Critical care time: Bedside Care: 30 minutes, Consultation: 5 minutes. Total time: 35 rt minutes Signatures: Dispatcher [employer] EDNY Yessy Phillip RN Hailee Cash Kathy, RN RN ko1 Alexx Sellers MD MD rt Jeanne Forrest RN RN me1 Berta Bryant RN aa5 Corrections: (The following items were deleted from the chart) 10:12 10:12 Chest Single View+[id number].[email or web address] ordered. EDMS EDMS 16:13 12:59 rt eb
--- NOTE | 2024-03-15 13:00 | ER ---
Nurse's Notes [facility] Name: Jayda Hernandez Age: 74 yrs Sex: Female : 1950 Arrival Date: 03/15/2024 Time: 09:27 Bed 7 Private MD: Diagnosis: Community-acquired pneumonia;Hypoxia Presentation: 03/15 09:47 Chief complaint: Headache, bilateral ear pain, persistent dry cough, and fatigue x 2 hb weeks. Coronavirus screen: At this time, the client does not indicate any symptoms associated with coronavirus-19. Ebola Screen: No symptoms or risks identified at this time. Initial Sepsis Screen: Does the patient meet any 2 criteria? No. Patient's initial sepsis screen is negative. Does the patient have a suspected source of infection? No. Patient's initial sepsis screen is negative. Risk Assessment: Do you want to hurt yourself or someone else? Patient reports no desire to harm self or others. Onset of symptoms was March 01, 2024. 09:47 Method Of Arrival: Ambulatory hb 09:47 Acuity: MACHO 2 hb Historical: - Allergies: 09:50 Erythromycin; hb 09:50 PENICILLINS; hb - PMHx: 09:50 Hypertension; Hypothyroidism; hb - PSHx: 09:50 Cholecystectomy; hb - Immunization history:: Adult Immunizations up to date. - Infectious Disease History:: Denies. - Social history:: Smoking status: Patient denies any tobacco usage or history of. - Family history:: not pertinent. Screenin:25 [facility] ED Fall Risk Assessment (Adult) History of falling in the last 3 months, ko1 including since admission No falls in past 3 months (0 pts) Confusion or Disorientation No (0 pts) Intoxicated or Sedated No (0 pts) Impaired Gait No (0 pts) Mobility Assist Device Used No (0 pt) Altered Elimination No (0 pt) Score/Fall Risk Level 0 - 2 = Low Risk Oriented to surroundings, Maintained a safe environment, Educated pt \T\ family on fall prevention, incl call for assistance when getting out of bed, Assessed \T\ reinforced patient's understanding of fall precautions, Hourly rounding (assess needs \T\ fall precautionary measures) done. Abuse screen: Denies threats or abuse. Denies injuries from another. Nutritional screening: No deficits noted. Tuberculosis screening: No symptoms or risk factors identified. Assessment: 10:25 General: Appears in no apparent distress. Behavior is calm, cooperative, appropriate ko1 for age. Pain: Denies pain. Neuro: No deficits noted. Cardiovascular: No deficits noted. Respiratory: Reports cough that is persistent. GI: No deficits noted. No signs and/or symptoms were reported involving the gastrointestinal system. : No deficits noted. No signs and/or symptoms were reported regarding the genitourinary system. EENT: No deficits noted. No signs and/or symptoms were reported regarding the EENT system. Derm: No deficits noted. No signs and/or symptoms reported regarding the dermatologic system. Musculoskeletal: No deficits noted. No signs and/or symptoms reported regarding the musculoskeletal system. 10:35 General: Appears comfortable, Behavior is calm, cooperative, appropriate for age. Pain: aa5 Denies pain. Neuro: Level of Consciousness is awake, alert, obeys commands, Oriented to person, place, time, situation. Cardiovascular: Heart tones S1 S2 present Rhythm is sinus rhythm. Respiratory: Reports cough that is non-productive, hacking, persistent Airway is patent Respiratory effort is even, unlabored, Respiratory pattern is regular, symmetrical. GI: No signs and/or symptoms were reported involving the gastrointestinal system. Abdomen is round. : No signs and/or symptoms were reported regarding the genitourinary system. EENT: No signs and/or symptoms were reported regarding the EENT system. Derm: Skin is pink, warm \T\ dry. Musculoskeletal: Range of motion: intact in all extremities. 11:00 Reassessment: Patient is alert, oriented x 3, equal unlabored respirations, skin aa5 warm/dry/pink. 12:40 Reassessment: Patient is alert, oriented x 3, equal unlabored respirations, skin aa5 warm/dry/pink. MD at bedside . 13:25 Reassessment: Patient is alert, oriented x 3, equal unlabored respirations, skin aa5 warm/dry/pink. Pt given apple juice as requested. . 15:20 Reassessment: Patient is alert, oriented x 3, equal unlabored respirations, skin aa5 warm/dry/pink. 16:25 Reassessment: Report faxed to admitting nurse. . aa5 17:00 Reassessment: Patient is alert, oriented x 3, equal unlabored respirations, skin aa5 warm/dry/pink. Vital Signs: 09:47 BP 121 / 68; Pulse 106; Resp 20; Temp 97.9; Pulse Ox 87% on R/A; Weight 71.21 kg; hb Height 5 ft. 2 in. ; Pain 0/10; 09:50 Pulse Ox 95% on 2 lpm NC; aa5 10:25 BP 107 / 76; Pulse 91; Resp 18; Pulse Ox 95% on Nebulizer Mask; ko1 11:03 BP 101 / 58; Pulse 89; Resp 16; Pulse Ox 95% on 2 lpm NC; aa5 12:00 BP 120 / 55; Pulse 91; Resp 18 S; Pulse Ox 94% on 2 lpm NC; aa5 13:28 BP 112 / 61; Pulse 91; Resp 18 S; Pulse Ox 95% on 3 lpm NC; aa5 16:00 BP 115 / 64; Pulse 88; Resp 16 S; Temp 97.8(TE); Pulse Ox 97% on 3 lpm NC; aa5 09:47 Body Mass Index 28.71 (71.21 kg, 157.48 cm) hb 09:47 Pain Scale: Adult hb ED Course: 09:30 Patient arrived in ED. mr 09:35 Alexx Sellers MD is Attending Physician. rt 09:50 Triage completed. hb 09:50 Arm band placed on. hb 09:58 Berta Bryant, RN is Primary Nurse. aa5 10:25 Patient has correct armband on for positive identification. Allergy band placed. Bed in ko1 low position. Call light in reach. Side rails up X 1. Provided Education on: meds,labs. Pulse ox on. NIBP on. Door closed. Noise minimized. Lights dimmed. Pillow given. 10:25 EKG done, by ED staff, reviewed by Alexx Sellers MD. Initial Neb Treatment Given as ko1 ordered Patient was instructed and evaluated on procedure Patient tolerated procedure well without adverse effect. 10:35 Missed attempt(s): 22 gauge in right antecubital area. Bleeding controlled, band aid aa5 applied, catheter tip intact. 10:39 Initial lab(s) drawn, by in, sent to lab. Inserted saline lock: 22 gauge in right aa5 antecubital area, using aseptic technique. Blood collected. Flushed with 10 mL NS. 10:41 XRAY Chest (1 view) In Process Unspecified. EDMS 11:59 Patient requests rest room assistance. ko1 11:59 Assisted to bathroom. ko1 12:59 Rayray Lucero MD is Hospitalizing Provider. rt 17:05 No provider procedures requiring assistance completed. Patient admitted, IV remains in aa5 place. Administered Medications: 10:20 Drug: Albuterol Inhalation 2.5 mg Inhalation once Route: Inhalation; ko1 10:20 Drug: Ipratropium Inhalation Aerosol 0.5 mg Inhalation once Route: Inhalation; ko1 13:21 Drug: LevaQUIN IVPB 750 mg IVPB once Route: IVPB; Site: right forearm; me1 14:25 Follow up: Response: No adverse reaction; IV Status: Completed infusion aa5 Medication: 10:25 VIS not applicable for this client. ko1 Outcome: 12:59 Decision to Hospitalize by Provider. rt 17:05 Admitted to Tele accompanied by tech, via wheelchair, with oxygen, with chart, aa5 17:05 Condition: stable 17:05 Instructed on the need for admit, Demonstrated understanding of instructions, 17:09 Patient left the ED. aa5 Signatures: Dispatcher [employer] EDND BhatiaMary Jo soares, Reg Reg mr BryantBerta, RN RN aa5 Yessy Phillip RN RN Ruby Ivey RN RN ko1 Alexx Sellers MD MD rt Jeanne Forrest, RN RN me1 Corrections: (The following items were deleted from the chart) 09:50 09:47 BP 121 / 68; Pulse 106bpm; Resp 20bpm; Pulse Ox 88% RA; Temp 97.9F; 71.21 kg; hb Height 5 ft. 2 in.; BMI: 28.7; Pain 0/10, Adult; hb 09:51 09:47 Chief complaint: Headache, bilateral ear pain, and persistent dry cough x 2 hb weeks. hb 09:51 09:47 Acuity: MACHO 3 hb hb 09:51 09:47 BP 121 / 68; Pulse 106bpm; Resp 20bpm; Pulse Ox 91% RA; Temp 97.9F; 71.21 kg; hb Height 5 ft. 2 in.; BMI: 28.7; Pain 0/10, Adult; hb 13:29 11:03 BP 101 / 58; Pulse 89bpm; Resp 16bpm; Pulse Ox 95%; ko1 aa5 16:27 10:39 Inserted saline lock: 22 gauge in right forearm, using aseptic technique. Blood aa5 collected. Flushed with 10 mL NS aa5
[2024-03-15] MEDS ORDERED: Levofloxacin 750mg IV 750 MG/150 ML BAG IV ONE (13:07)
[2024-03-15] MEDS: CEFTRIAXONE 2,000 MG in NA CHLORIDE 0.9% 100 ML IV SCH (13:58)
--- NOTE | 2024-03-15 14:14 | P.HP ---
Certification for Inpatient Patient admitted to: Inpatient With expected LOS: <2 Midnights Practitioner: I am a practitioner with admitting privileges, knowledge of patient current condition, hospital course, and medical plan of care. Services: Services provided to patient in accordance with Admission requirements found in Title 42 Section 412.3 of the Code of Federal Regulations Patient History Date of Service: 03/15/24 Reason for admission: Pneumonia History of Present Illness: 74-year-old female with a past medical history Hypertension; Hypothyroidism presents to the emergency room with shortness of breath. She reports symptoms has been going on for two weeks. Reports failed outpatient treatment with Dr. Amos. She reports taking doxycycline, Levaquin, prednisone, montelukast, Tessalon, without effect. The patient reports productive cough, shortness of breath with exertion, progressively getting worse over the last 2 days. She denies fever, chest pain, abdominal pain, nausea vomiting diarrhea. Chest x-ray reveals left lobe pneumonia, she denies history of PE, CT of the chest PE protocol ordered to rule out PE. She reports mild bilateral lower extremity edema is worse over the last week. On arrival to ED O2 sats were 87% on room air. Plan to admit for failed outpatient treatment, acute hypoxic respiratory failure secondary to left lobe pneumonia Allergies erythromycin base Allergy (Verified 11/06/23 22:15) Hives Penicillins Allergy (Verified 11/06/23 22:15) Anaphylaxis Erythromycin Allergy (Unknown, Uncoded 11/06/23 22:15) Unknown Home Medications: Aspirin Chewable [Aspirin Chewable*] 81 mg PO DAILY 08/17/14 Levothyroxine Sodium 25 mcg PO DAILY 11/06/23 Solifenacin [Vesicare*] 1 tab PO DAILY 11/06/23 Amlodipine [Norvasc*] 10 mg PO DAILY #30 tab 11/08/23 - Past Medical/Surgical History Diabetic: No -: Hypertension -: Hypothyroidism -: Recurrent UTI Past Surgical History: Patient denies surgical history - Family History Mother -: Lung disease Notes: Emphysema,asthma Father -: Heart disease - Social History Alcohol use: No CD- Drugs: No Caffeine use: No Review of Systems 10-point ROS is otherwise unremarkable Physical Examination - Physical Exam General: Alert, Oriented x3, Mild distress HEENT: Atraumatic, Normocephalic, PERRLA Neck: 2+ carotid pulse no bruit, JVD not distended Respiratory: Normal air movement, Other (Crackles,) Cardiovascular: Normal pulses, Regular rate/rhythm, Normal S1 S2, Edema Gastrointestinal: Normal bowel sounds, Soft and benign Musculoskeletal: No swelling, No contractures, No erythema Integumentary: No breakdown, No erythema, No warmth Neurological: Normal speech, Normal strength at 5/5 x4 extr, Sensation intact, Cranial nerves 3-12 intact - Studies Laboratory Data (last 24 hrs) 03/15/24 10:39 Sodium 132 L Potassium 3.6 BUN 29 H Creatinine 1.14 H Glucose 116 H Total Bilirubin 0.4 AST 49 H ALT 41 Alkaline Phosphatase 76 Assessment and Plan - Problems (Diagnosis) (1) Failure of outpatient treatment Current Visit: Yes Status: Acute (2) Acute hypoxic respiratory failure Current Visit: Yes Status: Acute (3) Left lower lobe pneumonia Current Visit: Yes Status: Acute Qualifiers: Pneumonia type: due to unspecified organism Qualified Code(s): J18.9 - Pneumonia, unspecified organism (4) Hypertension Current Visit: Yes Status: Chronic Qualifiers: Hypertension type: unspecified Qualified Code(s): I10 - Essential (primary) hypertension (5) Hypothyroidism Current Visit: Yes Status: Acute Qualifiers: Hypothyroidism type: unspecified Qualified Code(s): E03.9 - Hypothyroidism, unspecified - Plan Assessment plan Acute hypoxic respiratory failure secondary to left lobe pneumonia IV antibiotics, nebs, steroids O2 2 L keep sats greater than 90% Ordered CT of the chest ruled out PE mild Lower extremity edema Low-dose diuretic Prolonged QT Avoid medications that can cause arrhythmia Hypertension Hyperlipidemia Hypothyroidism Resume appropriate home meds Full code DVT Lovenox Diet cardiac Disposition Home independent prior Discharge Plan: Home - Advance Directives Does patient have a Living Will: No Does patient have a Durable POA for Healthcare: No - Code Status/Comfort Care Code Status: Full Code Critical Care: No Time Spent Managing Pts Care (In Minutes): 55
[2024-03-15] MEDS ORDERED: VANCOMYCIN 1 GM/VIAL ONE (15:01)
[2024-03-15] MEDS ORDERED: NA CHLORIDE 0.9% 1,000 ML ONE (15:02)
[2024-03-15] MEDS ORDERED: CEFEPIME 2 GM VIAL ONE (15:02)
[2024-03-15] MEDS ORDERED: FUROSEMIDE 20 MG TABLET ONE (15:02)
[2024-03-15] MEDS ORDERED: NA CHLORIDE 0.9% 250 ML ONE (15:02)
[2024-03-15] MEDS ORDERED: METHYLPREDNISOLONE 40 MG INJ ONE (15:02)
[2024-03-15] MEDS ORDERED: NA CHLORIDE 0.9% 100 ML ONE (15:03)
--- NOTE | 2024-03-15 15:04 | RAD REPORT ---
EXAMINATION: CTA CHEST PE CLINICAL INDICATION: Shortness of breath TECHNIQUE: 100 cc 370 Isovue administered intravenously. This examination was performed according to an angiographic protocol with 3D post-processing. This involves 3D reconstructions, MIPs, volume rendered images and/or shaded surface rendering. One or more of the following dose reduction techniqu es were used: Automated exposure control, adjustment of the mA and/or kV according to patient size, and/or iterative reconstruction. Unless otherwise specified, incidental findings do not require dedic ated imaging follow-up. [id number]. COMPARISON: No prior exam. FINDINGS: A pulmonary embolus is not seen. An aortic aneurysm not noted. No pleural effusion. No pericardial effusion. Mild to moderate patchy opacities left lung. Minimal right upper lobe opacity.. A large amount of epicardial fat is present. IMPRESSION: No evidence of a pulmonary embolism Mild to moderate left lung opacities probably pneumonia Minimal right upper lobe opacity Large amount of epicardial fat
[2024-03-15] MEDS: FUROSEMIDE 20 MG TABLET PO SCH (15:20)
[2024-03-15] MEDS: METHYLPREDNISOLONE 125 MG INJ IV SCH (15:20)
[2024-03-15] MEDS: CEFEPIME 2 GM in NA CHLORIDE 0.9% 100 ML IV SCH (15:20)
[2024-03-15] MEDS: NA CHLORIDE 0.9% 1,000 ML IV SCH (15:20)
[2024-03-15 15:21] LABS: Absolute Lymphocytes (CBC) ND K/uL (0.7-4.9); Absolute Neutrophil ND K/uL (1.8-8.0); Basophils % ND % (0-1.3); Eosinophils % ND % (0-4.4); Hematocrit ND % (36.0-45.0); Hemoglobin ND g/dL (12.0-15.0); Lymphocytes % ND % (15.3-44.8); MCH ND pg (27.0-35.0); MCHC ND g/dL (32.0-36.0); MCV ND fL (80-100); MPV ND fL (7.6-11.3); Monocytes % ND % (3.3-12.3); Neutrophils % ND % (41.7-73.7); Nucleated Red Blood Cells % ND % (0-0); Platelet Distribution Width ND fL (9.0-17.0); Platelets ND thou/uL (152-406); RBC Red Blood Cell Count ND M/uL (3.86-4.86); Red Cell Distribution Width ND % (12.1-15.2); White Blood Count ND thou/uL (4.3-10.9)
[2024-03-15 15:22] LABS: Absolute Basophils ND K/uL (0-0.5); Absolute Eosinophils ND K/uL (0-0.5); Absolute Monocytes ND K/uL (0.1-1.3); Nucleated RBC Absolute Count ND (0-0)
[2024-03-15] MEDS: VANCOMYCIN 1.25 GM in NA CHLORIDE 0.9% 250 ML IVPB SCH (16:00)
[2024-03-15 16:08] LABS: Specific Gravity 1.028 (1.005-1.030); Sqamous Epithelial <5 /HPF (None Seen); Urine Bacteria None Seen /HPF (<20); Urine Bilirubin NEGATIVE (Negative); Urine Blood Negative (Negative); Urine Clarity Extremely Turbid (Clear); Urine Color Yellow (Yellow); Urine Crystals Unidentified Few /HPF (None Seen); Urine Culture Reflex Order REFLEXED; Urine Glucose NEGATIVE (Negative); Urine Ketones NEGATIVE (Negative); Urine Microscopic Reflex YN ORDER UMIC; Urine Mucus 2+ /HPF (None Seen); Urine Nitrite NEGATIVE (Negative); Urine Protein 1+ (Negative); Urine RBC <5 /HPF (None Seen); Urine Urobilinogen Normal (Normal); Urine WBC >50 /HPF (<5); Urine WBC Clump Occasional /HPF (None Seen); Urine Yeast (Budding) Trace /HPF (None Seen); Urine pH 5.5 (5.0-7.0)
[2024-03-15 18:17] VITALS: BMI 28.7
[2024-03-15] MEDS: BENZONATATE 100 MG CAP PO PRN (20:42)
[2024-03-15] MEDS: MONTELUKAST 10 MG TAB PO SCH (20:42)
[2024-03-16] MEDS: ALBUTEROL 2.5 MG/3 ML NEB SOL NEB PRN (01:26)
[2024-03-16] MEDS: LEVOTHYROXINE SOD 0.025 MG TAB PO SCH (05:19)
[2024-03-16 08:18] LABS: Absolute Lymphocytes (CBC) 0.6 K/uL (0.7-4.9); Absolute Monocytes 0.2 K/uL (0.1-1.3); Absolute Neutrophil 5.8 K/uL (1.8-8.0); Basophils % 0.1 % (0-1.3); Hematocrit 40.2 % (36.0-45.0); Hemoglobin 14.2 g/dL (12.0-15.0); Lymphocytes % 8.7 % (15.3-44.8); MCH 31.9 pg (27.0-35.0); MCHC 35.4 g/dL (32.0-36.0); MCV 90.1 fL (80-100); Monocytes % 2.5 % (3.3-12.3); Neutrophils % 88.7 % (41.7-73.7); Nucleated Red Blood Cells % 0.1 % (0-0); Platelets 238 thou/uL (152-406); RBC Red Blood Cell Count 4.46 M/uL (3.86-4.86); Red Cell Distribution Width 12.4 % (12.1-15.2)
[2024-03-16 08:35] LABS: Albumin 2.8 g/dL (3.4-5.0); Albumin/Globulin Ratio 0.8 (1.1-1.8); Anion Gap 9.8 mEq/L (5.0-15.0); Bilirubin Total 0.3 mg/dL (0.2-1.0); Globulin 3.7 g/dL (2.3-3.5); Magnesium 2.1 mg/dL (1.6-2.4); Potassium 3.8 mEq/L (3.5-5.1); Protein, Total 6.5 g/dL (6.4-8.2)
[2024-03-16] MEDS: ASPIRIN 81 MG CHEWABLE TABLET PO SCH (08:46)
[2024-03-16] MEDS: AMLODIPINE 2.5 MG TAB PO SCH (08:46)
[2024-03-16] MEDS: hydroCHLOROthiazide 12.5 MG CAP PO SCH (08:46)
[2024-03-16] MEDS ORDERED: SPIRONOLACTONE 25 MG TABLET PO SCH ×2 (09:00)
[2024-03-16] MEDS ORDERED: VALSARTAN 160 MG TAB PO SCH (09:00)
[2024-03-16] MEDS ORDERED: VALSARTAN 40 MG TAB PO SCH ×2 (09:00)
[2024-03-16] MEDS: VALSARTAN 80 MG TAB PO SCH (09:56)
[2024-03-16 10:07] LABS: Blood Morphology Comment NOT SEEN (NOT SEEN); Platelet Estimate ADEQ; White Blood Cell Scan OK (OK)
--- NOTE | 2024-03-16 11:23 | P.PN ---
Date of Service: 03/16/24 subjective Reports difficulty coughing up phlegm, Daughter at bedside, Review of Systems 10-point ROS is otherwise unremarkable Physical Examination - Physical Exam General: Alert, Oriented x3, afebrile HEENT: Atraumatic, Normocephalic, PERRLA Neck: Supple Respiratory: Normal air movement, Other (Crackles bases) Cardiovascular: Normal pulses, Regular rate/rhythm, Normal S1 S2, Gastrointestinal: Normal bowel sounds, Soft and benign Musculoskeletal: No swelling, No contractures, No erythema Integumentary: No breakdown, No erythema, No warmth Neurological: Normal speech, Normal strength at 5/5 x4 extr, Sensation intact, Assessment and Plan - Problems (Diagnosis) (1) Failure of outpatient treatment Current Visit: Yes Status: Acute (2) Acute hypoxic respiratory failure Current Visit: Yes Status: Acute (3) Left lower lobe pneumonia Current Visit: Yes Status: Acute Qualifiers: Pneumonia type: due to unspecified organism Qualified Code(s): J18.9 - Pneumonia, unspecified organism (4) Hypertension Current Visit: Yes Status: Chronic Qualifiers: Hypertension type: unspecified Qualified Code(s): I10 - Essential (primary) hypertension (5) Hypothyroidism Current Visit: Yes Status: Acute Qualifiers: Hypothyroidism type: unspecified Qualified Code(s): E03.9 - Hypothyroidism, unspecified - Plan Assessment plan Acute hypoxic respiratory failure secondary to left lobe pneumonia IV antibiotics, nebs, steroids O2 2 L keep sats greater than 90% Ordered CT of the chest ruled out PE Infectious disease consult because she failed outpatient antibiotics at home LevDianne montanez psych She will need a nebulizer machine at home [facility] mild Lower extremity edema Low-dose diuretic Prolonged QT Avoid medications that can cause arrhythmia Hypertension Hyperlipidemia Hypothyroidism Resume appropriate home meds Full code DVT Lovenox Diet cardiac Disposition Home independent prior Discharge Plan: Home - Advance Directives Does patient have a Living Will: No Does patient have a Durable POA for Healthcare: No - Code Status/Comfort Care Code Status: Full Code Critical Care: No Time Spent Managing Pts Care (In Minutes): 30
[2024-03-16] MEDS: GUAIFENESIN 600 MG SA TAB PO SCH (11:59)
[2024-03-16] MEDS: VANCOMYCIN 1 GM/VIAL ONE (15:48)
[2024-03-16] MEDS: NA CHLORIDE 0.9% 250 ML ONE (17:53)
[2024-03-16] MEDS: VANCOMYCIN 500 MG/VIAL ONE (17:54)
[2024-03-16] MEDS: LOPERAMIDE HCL 2 MG CAPSULE PO ONE (20:50)
[2024-03-17] MEDS: ACETAMINOPHEN 500 MG TAB PO PRN (03:31)
[2024-03-17] MEDS: CETIRIZINE HCL 5 MG TABLET PO PRN (03:31)
[2024-03-17 06:42] LABS: Absolute Lymphocytes (CBC) 0.8 K/uL (0.7-4.9); Absolute Monocytes 0.5 K/uL (0.1-1.3); Absolute Neutrophil 8.9 K/uL (1.8-8.0); Basophils % 0.1 % (0-1.3); Hematocrit 37.9 % (36.0-45.0); Hemoglobin 13.1 g/dL (12.0-15.0); Lymphocytes % 7.9 % (15.3-44.8); MCH 31.5 pg (27.0-35.0); MCHC 34.6 g/dL (32.0-36.0); MPV 7.6 fL (7.6-11.3); Monocytes % 5.1 % (3.3-12.3); Neutrophils % 86.9 % (41.7-73.7); Nucleated Red Blood Cells % 0.1 % (0-0); Platelets 253 thou/uL (152-406); RBC Red Blood Cell Count 4.16 M/uL (3.86-4.86); Red Cell Distribution Width 12.2 % (12.1-15.2)
[2024-03-17 07:05] LABS: Albumin 2.5 g/dL (3.4-5.0); Albumin/Globulin Ratio 0.8 (1.1-1.8); Anion Gap 8.5 mEq/L (5.0-15.0); Bilirubin Total 0.3 mg/dL (0.2-1.0); Globulin 3.2 g/dL (2.3-3.5); Magnesium 1.9 mg/dL (1.6-2.4); Phosphorus 2.8 mg/dL (2.5-4.9); Potassium 3.5 mEq/L (3.5-5.1); Protein, Total 5.7 g/dL (6.4-8.2)
--- NOTE | 2024-03-17 08:29 | RAD REPORT ---
EXAMINATION: TWO VIEW CHEST XR CLINICAL INDICATION: PNA TECHNIQUE: 2 views of the chest was performed. COMPARISON: 03/15/2024 FINDINGS: Mild improvement is seen in bilateral pulmonary opacities since the comparative study. Mild interstit ial opacities persist. The heart is moderately enlarged. No displaced fractures evident. IMPRESSION: Mild improvement in lung aeration seen since comparative study.
[2024-03-17] MEDS: POTASSIUM CL SA 10 MEQ TAB PO ONE (09:57)
--- NOTE | 2024-03-17 13:19 | P.PN ---
Subjective Date of Service: 03/17/24 Chief Complaint: Pneumonia Subjective: New changes Patient says she is no longer short of breath, does not require any oxygen, but she developed to arthritic times watery diarrhea overnight, no abdominal pain, tolerating oral diet without any nausea and vomiting. Review of Systems Other: Consitutional; fever(-), chills (-), rigor(-), night sweat(-), unintentional weight loss(-), malaise (-) HEENT; diplopia (-), rhinorrhea (-), epistaxis (-), otorrhea (-), otalgia (-) Respiratory; shortness of breath (-), wheezing (-), cough (+), sputum (+), pleuritic chest pain (-) Cardiovascular; chest pain (-), peripheral edema (-), paroxysmal nocturnal dyspnea (-), orthopnea (-) Gastrointestinal; nausea (-), vomiting (-), abdominal pain (-), diarrhea (+), constipation (-), melena (-), hematochezia (-) Genitourinary; urinary frequency (-), dysuria (-), urgency (-), flank pain (-), gross hematuria (-), incontinence (-) Skin; rash (-), pruritus (-) CAT BREEDER; headache (-), paresthesia (-), numbness (-), paralysis (-) Physical Examination - Vital Signs Temperature: 97.9 F Blood Pressure: 140/67 Pulse: 75 Respirations: 16 Pulse Ox (%): 90 Assessment And Plan - Plan 74-year-old female with a past medical history Hypertension; Hypothyroidism presents to the emergency room with shortness of breath for 2 days she reports symptoms has been going on for two weeks. Reports failed outp atient treatment with Dr. Amos. She reports taking doxycycline, Levaquin, prednisone, montelukast, Tessalon, without effect. On arrival to ED O2 sats were 87% on room air. Plan to admit for failed outpatient treatment, acute hypoxic respiratory failure secondary to left lobe pneumonia #1 acute hypoxic respiratory failure related to #2 Improved, good oxygenation without oxygen, required supplemental nasal oxygen 2. Community-acquired pneumonia, bronchopneumonia in the left lower lobe by CT of the chest Chest CT personally reviewed, no PE, consolidation in the left lower lobe, sputum culture pending, no sign of sepsis, remained afebrile, no leukocytosis. No risk of MRSA or Pseudomonas, I will downgrade antibiotics to cefuroxime and doxycycline, I will taper methylprednisolone to 60 mg twice daily today, continue antitussive and bronchodilator #3 hypertension Blood pressure is reasonably controlled on home diuretics and valsartan and amlodipine #4 antibiotic associated diarrhea rule out C. difficile colitis Suspected C. difficile colitis, I will order C. difficile test, symptomatic management with loperamide DVT prophylaxis, I will order enoxaparin subcu today.
[2024-03-17] MEDS ORDERED: VANCOMYCIN 1.25 GM in NA CHLORIDE 0.9% 250 ML IVPB SCH (15:00)
[2024-03-17] MEDS: DOXYCYCLINE 100 MG CAP PO SCH (20:26)
[2024-03-17] MEDS: CEFUROXIME 250 MG TAB PO SCH (20:26)
[2024-03-17] MEDS: METHYLPREDNISOLONE 125 MG INJ IV SCH (20:27)
[2024-03-18 06:24] LABS: Absolute Lymphocytes (CBC) 0.7 K/uL (0.7-4.9); Absolute Monocytes 0.5 K/uL (0.1-1.3); Absolute Neutrophil 8.3 K/uL (1.8-8.0); Basophils % 0.1 % (0-1.3); Hematocrit 38.6 % (36.0-45.0); Hemoglobin 13.2 g/dL (12.0-15.0); MCH 31.4 pg (27.0-35.0); MCHC 34.3 g/dL (32.0-36.0); MCV 91.6 fL (80-100); MPV 7.6 fL (7.6-11.3); Monocytes % 5.8 % (3.3-12.3); Neutrophils % 87.1 % (41.7-73.7); Platelets 247 thou/uL (152-406); RBC Red Blood Cell Count 4.21 M/uL (3.86-4.86); Red Cell Distribution Width 12.4 % (12.1-15.2)
[2024-03-18 06:52] LABS: Albumin 2.6 g/dL (3.4-5.0); Albumin/Globulin Ratio 0.8 (1.1-1.8); Anion Gap 11.4 mEq/L (5.0-15.0); Bilirubin Total 0.3 mg/dL (0.2-1.0); Globulin 3.2 g/dL (2.3-3.5); Magnesium 2.1 mg/dL (1.6-2.4); Potassium 3.4 mEq/L (3.5-5.1); Protein, Total 5.8 g/dL (6.4-8.2)
[2024-03-18] MEDS: ENOXAPARIN 40 MG/0.4 ML SQ SCH (09:33)
[2024-03-18] MEDS: POTASSIUM CL SA 10 MEQ TAB PO ONE (09:33)
--- NOTE | 2024-03-18 11:17 | P.PN ---
Subjective Date of Service: 03/18/24 Chief Complaint: Pneumonia Subjective: Improving She is happy that her phlegm is finally breaking up coughing up some phlegm through the nose, no more watery diarrhea her stools started to form, she is complaining of urinary incontinence wearing diapers. Denied any fever or chill or short of breath at rest. She reports she never smoked, no history of bronchial asthma or COPD, no previous history of pneumonia. Review of Systems Other: Consitutional; fever(-), chills (-), rigor(-), night sweat(-), unintentional weight loss(-), malaise (-) HEENT; diplopia (-), rhinorrhea (-), epistaxis (-), otorrhea (-), otalgia (-) Respiratory; shortness of breath (-), wheezing (-), cough (+), sputum (+), pleuritic chest pain (-) Cardiovascular; chest pain (-), peripheral edema (-), paroxysmal nocturnal dyspnea (-), orthopnea (-) Gastrointestinal; nausea (-), vomiting (-), abdominal pain (-), diarrhea (-), constipation (-), melena (-), hematochezia (-) Genitourinary; urinary frequency (-), dysuria (-), urgency (-), flank pain (-), gross hematuria (-), incontinence (+) Skin; rash (-), pruritus (-) BOX LOADER; headache (-), paresthesia (-), numbness (-), paralysis (-) Physical Examination - Vital Signs Temperature: 96.0 F Blood Pressure: 165/72 Pulse: 63 Respirations: 16 Pulse Ox (%): 93 - Physical Exam Other Physical/Emotional Findings: - Physical Exam. General: Not acutely ill looking, in no apparent distress,. HEENT: Normocephalic, atraumatic, nonicteric sclera, nonanemic conjunctive. Neck: Supple, without JVD or goiter or thyroid mass. Respiratory: Normal breathing effort, coarse breath sound in the left lower lung field with crackle, no wheezing. Cardiovascular: Regular rate and rhythm, S1, S2 normal, no murmur no gallop. Gastrointestinal: Normal bowel sounds, nondistended, nontender, No ascites, , No masses, no hepatosplenomegaly. Extremities : No clubbing, No peripheral edema, full range of motion, no deformity, no muscle atrophy. Integumentary: No rashes, petechia, suspected lesions. Lymphatics: No axilla or cervical lymphadenopathy. Neurology; alert awake oriented x3, no focal neurologic deficit, normal affection . mood and behavior. Assessment And Plan - Plan 74-year-old female with a past medical history Hypertension; Hypothyroidism presents to the emergency room with shortness of breath for 2 day s she reports symptoms has been going on for two weeks. Reports failed outpatient treatment with Dr. Amos. She reports taking doxycycline, Levaquin, prednisone, montelukast, Tessalon, without effect. On arrival to ED O2 sats were 87% on room air. Plan to admit for failed outpatient treatment, acute hypoxic respiratory failure secondary to left lobe pneumonia. No history of bronchial asthma or COPD, non-smoker #1 acute hypoxic respiratory failure related to #2 Resolved, good oxygenation, 93% without oxygen, required supplemental nasal oxygen 2. Community-acquired pneumonia, bronchopneumonia in the left lower lobe by CT of the chest, no sepsis Chest CT, no PE, consolidation in the left lower lobe, sputum culture pending, no sign of sepsis, remained afebrile, no leukocytosis. No risk of MRSA or Pseudomonas, I will keep cefuroxime and doxycycline, I stop methylprednisolone ttoday, continue antitussive and bronchodilator #3 hypertension Blood pressure is reasonably controlled on home diuretics and valsartan and amlodipine #4 antibiotic associated diarrhea, less likely C. difficile colitis Improving, symptomatic management with loperamide, stool C. difficile test ordered if her stool becomes watery diarrhea DVT prophylaxis, enoxaparin subcu Disposition; plan to discharge home tomorrow
[2024-03-18] MEDS: LOPERAMIDE HCL 2 MG CAPSULE PO PRN (20:57)
[2024-03-19 05:10] LABS: Anion Gap 9.3 mEq/L (5.0-15.0); Potassium 3.3 mEq/L (3.5-5.1)
[2024-03-19] MEDS: POTASSIUM CL SA 10 MEQ TAB PO ONE (05:48)
[2024-03-19 06:40] VITALS: O2SAT 95
[2024-03-19] MEDS: AMLODIPINE 10 MG TAB PO SCH (08:19)
[2024-03-19] MEDS: TROSPIUM CHLORIDE 20 MG TABLET PO SCH (08:20)
[2024-03-19 08:21] VITALS: BP 187/78
[2024-03-19 08:49] VITALS: TEMP 97.8
[2024-03-19] MEDS ORDERED: SOLIFENACIN SUCCIN 5 MG TAB PO SCH (09:00)
--- NOTE | 2024-03-19 10:58 | P.DS ---
Admission Date: 03/15/24 Discharge Date: 03/19/24 Disposition: ROUTINE DISCHARGE Discharge Condition: GOOD Reason for Admission: Pneumonia Brief History of Present Illness: 74-year-old female with a past medical history Hypertension; Hypothyroidism presents to the emergency room with shortness of breath for 2 days she reports symptoms has been going on for two weeks. Reports failed outpatient treatment with Dr. Amos. She reports taking doxycycline, Levaquin, prednisone, montelukast, Tessalon, without effect. On arrival to ED O2 sats were 87% on room air. Plan to admit for failed outpatient treatment, acute hypoxic respiratory failure secondary to left lobe pneumonia. No history of bronchial asthma or COPD, non-smoker Hospital Course: She was initially treated with cefepime and IV vancomycin, supplemental oxygen by nasal cannula, scheduled bronchodilator, IV steroid. Patient gradually improved and was able to taper off oxygen and wean off steroid. Her antibiotics was downgraded to oral cefuroxime and doxycycline as the patient has no risk of MDR. She developed watery diarrhea while on antibiotics but improved with as needed loperamide, tolerating oral diet well. C. difficile stool test was ordered but her stool began to formed so sample was not sent out. She is being discharged home. Plan is to finish 7-day course of antibiotics and see his primary physician back as outpatient. #1 acute hypoxic respiratory failure related to #2 Resolved, good oxygenation, 93% without oxygen, required supplemental nasal oxygen 2 to 3 L/min 2. Community-acquired pneumonia, bronchopneumonia in the left lower lobe by CT of the chest, no sepsis Chest CT, no PE, consolidation in the left lower lobe, sputum culture pending at the time of discharge, no sign of sepsis, remained afebrile, no leukocytosis. No risk of MRSA or Pseudomonas, continued on cefuroxime and doxycycline, #3 hypertension Blood pressure is reasonably controlled on home diuretics and valsartan and amlodipine #4 antibiotic associated diarrhea, less likely C. difficile colitis Improving, symptomatic management with loperamide, stool C. difficile test ordered if her stool becomes watery diarrhea Vital Signs/Physical Exam: Temp Pulse Resp BP Pulse Ox 97.8 F 79 16 187/78 H 91 03/19/24 08:00 03/19/24 08:19 03/19/24 08:00 03/19/24 08:19 03/19/24 08:00 Other Physical/Emotional Findings: - Physical Exam. General: Not acutely ill looking, in no apparent distress,. HEENT: Normocephalic, atraumatic, nonicteric sclera, nonanemic conjunctive. Neck: Supple, without JVD or goiter or thyroid mass. Respiratory: Normal breathing effort, coarse breath sound in the left lower lung field with crackle, no wheezing. Cardiovascular: Regular rate and rhythm, S1, S2 normal, no murmur no gallop. Gastrointestinal: Normal bowel sounds, nondistended, nontender, No ascites, , No masses, no hepatosplenomegaly. Extremities : No clubbing, No peripheral edema, full range of motion, no deformity, no muscle atrophy. Integumentary: No rashes, petechia, suspected lesions. Lymphatics: No axilla or cervical lymphadenopathy. Neurology; alert awake oriented x3, no focal neurologic deficit, normal affection . mood and behavior. Laboratory Data at Discharge: WBC 9.50 thou/uL (4.3-10.9) 03/18/24 06:07 Hgb 13.2 g/dL (12.0-15.0) 03/18/24 06:07 Hct 38.6 % (36.0-45.0) 03/18/24 06:07 Plt Count 247 thou/uL (152-406) 03/18/24 06:07 Sodium 138 mEq/L (136-145) 03/19/24 04:33 Potassium 3.3 mEq/L (3.5-5.1) L 03/19/24 04:33 BUN 31 mg/dL (7-18) H 03/19/24 04:33 Creatinine 0.98 mg/dL (0.55-1.02) 03/19/24 04:33 Glucose 103 mg/dL (74-106) 03/19/24 04:33 Phosphorus 2.8 mg/dL (2.5-4.9) 03/17/24 05:51 Magnesium 2.1 mg/dL (1.6-2.4) 03/18/24 06:07 Total Bilirubin 0.3 mg/dL (0.2-1.0) 03/18/24 06:07 AST 51 U/L (15-37) H 03/18/24 06:07 ALT 57 U/L (13-56) H 03/18/24 06:07 Alkaline Phosphatase 52 U/L (45-117) 03/18/24 06:07 Home Medications: Aspirin Chewable [Aspirin Chewable*] 81 mg PO DAILY 08/17/14 Levothyroxine Sodium 25 mcg PO [id number] 11/06/23 Solifenacin [Vesicare*] 1 tab PO DAILY 11/06/23 Amlodipine [Norvasc*] 10 mg PO DAILY #30 tab 11/08/23 Albuterol Neb [Proventil 0.083% Neb Soln] 2.5 mg NEB Q6HP PRN #30 amp 03/19/24 Benzonatate [Tessalon Perle*] 200 mg PO TID #30 cap 03/19/24 Cefuroxime [Ceftin*] 500 mg PO BID 3 Days #12 tab 03/19/24 Doxycycline Monohydrate 100 mg PO BID 3 Days #6 03/19/24 Nebulizer 1 each MC TID #1 ea 03/19/24 Nebulizer Accessories [Daisetta Choice Neb Kit-Adult] 1 each MC TID #1 ea 03/19/24 Nebulizer Accessories [Ez Twist Tubing] 1 each MC TID #1 ea 03/19/24 Nebulizer Accessories [Sootheneb [id number] Adult Mask] 1 each MC TID #1 ea 03/19/24 New Medications: Albuterol Neb [Proventil 0.083% Neb Soln] 2.5 mg NEB Q6HP PRN #30 amp PRN Reason: Shortness Of Breath Cefuroxime [Ceftin*] 500 mg PO BID 3 Days #12 tab Nebulizer Accessories [Daisetta Choice Neb Kit-Adult] 1 each MC TID #1 ea Doxycycline Monohydrate 100 mg PO BID 3 Days #6 Nebulizer Accessories [Ez Twist Tubing] 1 each MC TID #1 ea Nebulizer 1 each MC TID #1 ea Nebulizer Accessories [Sootheneb [id number] Adult Mask] 1 each MC TID #1 ea Benzonatate [Tessalon Perle*] 200 mg PO TID #30 cap Followup: Griselda Amos, DO [Primary Care Provider] -
--- NOTE | 2024-03-19 12:43 | EKG ---
Test Date: 2024-03-15 Test Time: 10:30:59 Flare Worker: AM MEASUREMENT RESULTS: Intervals: Rate: 94 RI: 144 QRSD: 72 QT: 554 QTc: 692 Refugio: P: 42 RI: 144 QRS: 73 T: 65 INTERPRETIVE STATEMENTS: Normal sinus rhythm Nonspecific T wave abnormality Prolonged QT Abnormal ECG Compared to ECG 02/21/2024 10:14:42 T-wave abnormality now present Prolonged QT interval now present Myocardial infarct finding no longer present Electronically Signed On 03-19-24 12:36:18 STOCK TRADER by Joaquim Gannon
== END 2024-03-19 12:35 | disposition home or self-care (01) | DRG 193 ==
LOC: ER 09:27 → ERHOLD 13:50 → 2ND 17:07
PROVIDERS: ADMIT Hospitalist; ATTEND Internal Medicine
DX: J18.9 Pneumonia, unspecified organism (principal); J96.01 Acute respiratory failure with hypoxia; K52.1 Toxic gastroenteritis and colitis; T36.95XA Adverse effect of unspecified systemic antibiotic, initial encounter; E78.5 Hyperlipidemia, unspecified; E03.9 Hypothyroidism, unspecified; I10 Essential (primary) hypertension; R60.9 Edema, unspecified; R94.31 Abnormal electrocardiogram [ECG] [EKG]; Z88.0 Allergy status to penicillin; Z88.1 Allergy status to other antibiotic agents; Z79.82 Long term (current) use of aspirin; Z90.49 Acquired absence of other specified parts of digestive tract; Z79.890 Hormone replacement therapy; Z79.899 Other long term (current) drug therapy
CPT/HCPCS: 36415; 71045; 71046; 71275; 80048; 80053; 80076; 80202; 81001; 83735; 83880; 84100; 84484; 85025; 85379; 87086; 87088; 93005; 94640; 94760; 96365; 99285; J0692; J1650; J2919; J7030; J7050; J7613; J7644; Q9967

== ENCOUNTER 2024-07-03 10:24 | Emergency (ER) | payer OTHER ==
--- OUTSIDE RECORDS SUMMARY | 2024-07-03 10:28 | XMS REPORT | Continuity of Care Document ---
Author Name Unknown Address [address] [facility] [address] [place] [address] Organization [facility] [place] Address [address] [facility] [address] [place] [address] Care Team Providers Care Tower Switch Operator Name Role Phone SHOAIB POWELL Primary Care Physician Unavailab CESILIA Estevez Attending Clinician Unavailable CESILIA BEAN Attending Clinician Unavailable XAVIER MANNING Attending Clinician Unavailable Xavier Manning MD Attending Clinician [phone] Cesilia Bean MD Attending Clinician [phone] Richard Bautista MD Attending Clinician [phone] RICHARD BAUTISTA Attending Clinician Unavailable RICHARD BAUTISTA Attending Clinician Unavailable [email or web address]_S Attending Clinician Unavaila renetta Doctor Unassigned, [place] Attending Clinician U elmiraailSangeeta Rice NP Attending Clinician + [phone] MALORIE DE LA O Attending Clinician Unavailab Malorie Stephen DO Attending Clinician [phone] SANGEETA SNDYER Attending Clinician UnavailKERRI Lares Attending Clinician Unavailable Kerri Macias DO Attending Clinician [phone] VIN KEN Attending Clinician Unavailable Vin Ruiz Attending Clinician [phone] BERNADINE BOSWELL Attending Clinician Unavailable Bernadine Boswell MD Attending Clinician [phone] Yessy Jeffries MA Attending Clinician UnavailJorge Hirsch Attending Clinician Unavailable Jorge Soni Attending Clinician DENITA WARE Attending Clinician Unavailable Johnnie PAGE, Symone Mac Attending Clinician Unavailab CESILIA Estevez Admitting Clinician Unavailable [email or web address] Admitting Clinician Unavaila renetta BERNADINE BOSWELL Admitting Clinician Unavailable Jorge YANG Admitting Clinician Unavailable Payers Payer Name Policy Type Policy Number Effective Date Expirati on Date Source [employer] MED[employer] HMO [id number] 2018 00:00:00 Problems Condition Name Condition Details Condition Category Status Onset Date Resolution Date Last Treatment Date Treating Clinician Comments Source GOLDSTEIN (dyspnea on exertion) GOLDSTEIN (dyspnea on exertion) Disease Active 07-02 00:00: 00 [facility] Preop cardiovasc ular exam Preop cardiovasc ular exam Disease Active 07-02 00:00: 00 [facility] Diverticul itis of small intestine with perforatio n without bleeding Diverticul itis of small intestine with perforatio n without bleeding Disease Active 06-26 00:00: 00 [facility] Breast pain in female Breast pain in female Disease Active 03-20 00:00: 00 [facility] 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 Disease Active 03-20 00:00: 00 [facility] BMI 28.0-28.9, adult BMI 28.0-28.9, adult Disease Active 03-20 00:00: 00 [facility] BV (bacterial vaginosis) BV (bacterial vaginosis) Disease Active 10-20 00:00: 00 [facility] Vulvar lesion Vulvar lesion Disease Active 10-19 00:00: 00 [facility] Uncontroll ed hypertensi on Uncontroll ed hypertensi on Disease Active 06-23 00:00: 00 [facility] Essential hypertensi on, benign Essential hypertensi on, benign Disease Active 05-13 00:00: 00 [facility] 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 Noted on CT scan on 01/19/15 [facility] Vaginal pruritus Vaginal pruritus Disease Active 02-25 00:00: 00 [facility] Lichen sclerosus Lichen sclerosus Disease Active 02-25 00:00: 00 [facility] Vaginal lesion Vaginal lesion Disease Active 02-25 00:00: 00 [facility] Vaginal atrophy Vaginal atrophy Disease Active 02-25 00:00: 00 [facility] Cystocele, midline Cystocele, midline Disease Active 02-25 00:00: 00 [facility] Urinary incontinen ce without sensory awareness Urinary incontinen ce without sensory awareness Disease Active 02-25 00:00: 00 [facility] 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 not amounting to dementia Disease Active 02-25 00:00: 00 [facility] Temporal arteritis Temporal arteritis Disease Active 2014-02 00:00: 00 [facility] Hypertensi ve crisis Hypertensi ve crisis Disease Active 2014-02 00:00: 00 [facility] Encounter for screening mammogram for breast cancer Encounter for screening mammogram for breast cancer Problem Active [facility] Encounter for gynecologi tiffany examinatio n without abnormal finding Encounter for gynecologi tiffany examinatio n without abnormal finding Problem Active [facility] Mixed incontinen ce Mixed incontinen ce Problem Active [facility] Adhesive capsulitis of right shoulder Adhesive capsulitis of right shoulder Problem Active [facility] Lateral epicondyli tis, right elbow Lateral epicondyli tis, right elbow Problem Active [facility] History of hysterecto my for benign disease History of hysterecto my for benign disease Problem Active [facility] Postmenopa usal atrophic vaginitis Postmenopa usal atrophic vaginitis Problem Active [facility] Pain in joint of right elbow Pain in joint of right elbow Problem Active [facility] 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 Problem Active [facility] Acute intractabl e headache, unspecifie d headache type Acute intractabl e headache, unspecifie d headache type Disease Resolve d 2014-02 00:00: 00 2015-06-24 00:00:00 2015-06-24 17:05:06 [facility] Allergies, Adverse Reactions, Alerts Allergy Name Allergy Type Status Severity Reaction(s) Onset Date Inactive Date Treating Clinician Comments Source Penicill ins Propensi ty to adverse reaction s Active Unknown - See comments 07-26 00:00: 00 [facility] ERYTHROM YCIN DRUG Active Med Rash 07-26 00:00: 00 [facility] PENICILL INS Drug Class Active Unknown-Cmnt 07-26 00:00: 00 [facility] Penicill ins Propensi ty to adverse reaction s Active Unknown - See comments 07-26 00:00: 00 [facility] Penicill ins Propensi ty to adverse reaction s Active Unknown - See comments 07-26 00:00: 00 [facility] Penicill ins Propensi ty to adverse reaction s Active Unknown - See comments 07-26 00:00: 00 [facility] Erythrom ycin Propensi ty to adverse reaction s to drug Active Rash 07-26 00:00: 00 blisters [facility] penicill in Adverse Reaction Active Info [facility] Reaction Active Info Not Available [facility] Social History Social Habit Start Date Stop Date Quantity Comments Source ASSERTION Not [facility] of Occupation [facility] Alcoholic beverage intake 2024-07-02 00:00:00 2024-07-02 00:00:00 0 /d [facility] History of Social function 2024-07-02 00:00:00 2024-07-02 00:00:00 [facility] Exposure to SARS-CoV-2 (event) 2022-03-26 00:00:00 2022-04-05 14:53:00 Not sure [facility] Alcohol intake 2022-04-05 00:00:00 2022-04-05 00:00:00 0 /d [facility] Sex assigned at 1950 00:00:00 1950 00:00:00 [facility] Smoking Status Start Date Stop Date Source Never smoked tobacco [facility] Medications Ordered Medication Name Filled Medication Name Start Date Stop Date Current Medication? Ordering Clinician Indication Dosage Frequency Signature (SIG) Comments Components Source amLODIPine 10 mg tablet 07-02 00:00: 00 Yes [id number] 10mg Take 1 tablet by mouth every morning. [facility] aspirin 81 mg EC tablet 06-26 15:36: 11 Yes 81mg Take 1 tablet by mouth in the morning. [facility] garlic (GARLIQUE ORAL) 06-26 08:17: 36 Yes 5000ug Take 5,000 mcg by mouth daily before a meal. [facility] peg-electro lyte soln 236-22.74-6 .74 -5.86 gram solution 06-26 00:00: 00 06-27 04:59 :00 Yes 4000mL Take 4,000 mL by mouth once now for 1 dose. [facility] Nitrofurant oin&Nit. Macrocryst (MACROBID) 100 mg capsule 06-13 00:00: 00 06-19 04:59 :00 Yes [id number] 100mg Take 1 capsule by mouth in the morning and 1 capsule in the evening. Do all this for 5 days. [facility] amLODIPine 2.5 mg tablet 07 00:00: 00 07-02 00:00 :00 No 2.5mg Take 1 tablet by mouth every morning. [facility] levothyroxi ne 25 mcg tablet 224 00:00: 00 Yes TAKE 1 TABLET BY MOUTH DAILY IN THE MORNING ON AN EMPTY STOMACH [facility] amLODIPine 2.5 mg tablet 1-06 00:00: 00 Yes [facility] levothyroxi ne 25 mcg tablet 2021-02 00:00: 00 Yes [facility] meloxicam 7.5 mg tablet 2021-02 00:00: 00 Yes [facility] spironolact one 25 mg tablet 2021-02 00:00: 00 Yes [facility] naproxen sodium 550 mg tablet 2021-02 00:00: 00 Yes [id number] 550mg Take 1 tablet by mouth in the morning and 1 tablet in the evening. Take with meals. [facility] methylPREDN ISolone 4 mg tablets 2021-02 00:00: 00 Yes [id number] 9104 Take by mouth SEE-INSTRU CTIONS. follow package directions [facility] methocarbam oL 500 mg tablet 2021-02 00:00: 00 12-08 04:59 :00 No [id number] 500mg Take 1 tablet by mouth in the morning and 1 tablet at noon and 1 tablet in the evening. Do all this for 5 days. [facility] Nitrofurant oin&Nit. Macrocryst 100 mg capsule 17 00:00: 00 Yes [id number] 100mg Take 1 capsule by mouth in the morning and 1 capsule in the evening. [facility] valsartan-h ydrochlorot hiazide 320-12.5 mg per tablet - 00:00: 00 Yes [facility] albuterol 90 mcg/actuati on inhaler 04-09 00:00: 00 Yes [id number] 2{puff} Inhale 2 Puffs every 4 (four) hours as needed for Wheezing or Shortness of Breath. [facility] albuterol 2.5 mg /3 mL (0.083 %) nebulizer solution 04-09 00:00: 00 Yes [id number] 2.5mg Inhale 3 mL every 4 (four) hours as needed for Wheezing or Shortness of Breath. [facility] benzonatate 200 mg capsule 04-09 00:00: 00 Yes [id number] 200mg Take 1 capsule by mouth 3 (three) times daily as needed for Cough for up to 20 doses. [facility] Clobex Clobex 2018-02 00:00: 00 02-14 00:00 :00 No Denita Oscar 1 applicatio n [facility] Vital Signs Vital Name Observation Time Observation Value Comments S susianayeli Systolic blood pressure 2024-07-02 18:34:00 166 mm[Hg] [facility] Diastolic blood pressure 2024-07-02 18:34:00 90 mm[Hg] [facility] Heart rate 2024-07-02 18:30:00 84 /min [facility] Respiratory rate 2024-07-02 18:30:00 16 /min [facility] Body weight 2024-07-02 18:30:00 68.947 kg [facility] BMI 2024-07-02 18:30:00 27.80 kg/m2 [facility] Oxygen saturation in Arterial blood by Pulse oximetry 2024-07-02 18:30:00 94 /min [facility] Systolic blood pressure 2024-06-26 13:19:00 185 mm[Hg] [facility] Diastolic blood pressure 2024-06-26 13:19:00 82 mm[Hg] [facility] Heart rate 2024-06-26 13:15:00 94 /min [facility] Respiratory rate 2024-06-26 13:15:00 18 /min [facility] Body height 2024-06-26 13:15:00 157.5 cm [facility] Body weight 2024-06-26 13:15:00 69.4 kg [facility] BMI 2024-06-26 13:15:00 27.98 kg/m2 [facility] Oxygen saturation in Arterial blood by Pulse oximetry 2024-06-26 13:15:00 95 /min [facility] Systolic blood pressure 2024-06-13 16:14:00 157 mm[Hg] [facility] Diastolic blood pressure 2024-06-13 16:14:00 85 mm[Hg] [facility] Heart rate 2024-06-13 16:14:00 80 /min [facility] Body temperature 2024-06-13 16:06:00 36.72 Nicol [facility] Respiratory rate 2024-06-13 16:06:00 18 /min [facility] Body height 2024-06-13 16:06:00 157.5 cm [facility] Body weight 2024-06-13 16:06:00 69.128 kg [facility] BMI 2024-06-13 16:06:00 27.87 kg/m2 [facility] Oxygen saturation in Arterial blood by Pulse oximetry 2024-06-13 16:06:00 95 /min [facility] Systolic blood pressure 2022-04-05 20:53:00 167 mm[Hg] [facility] Diastolic blood pressure 2022-04-05 20:53:00 87 mm[Hg] [facility] Heart rate 2022-04-05 20:53:00 102 /min [facility] Body temperature 2022-04-05 20:53:00 37.72 Nicol [facility] Respiratory rate 2022-04-05 20:53:00 20 /min [facility] Body height 2022-04-05 20:53:00 157.5 cm [facility] Body weight 2022-04-05 20:53:00 69.854 kg [facility] BMI 2022-04-05 20:53:00 28.17 kg/m2 [facility] Oxygen saturation in Arterial blood by Pulse oximetry 2022-04-05 20:53:00 98 /min [facility] Systolic blood pressure 2022-03-20 19:54:00 159 mm[Hg] [facility] Diastolic blood pressure 2022-03-20 19:54:00 74 mm[Hg] [facility] Heart rate 2022-03-20 19:54:00 92 /min [facility] Body temperature 2022-03-20 19:54:00 36.78 Nicol [facility] Respiratory rate 2022-03-20 19:54:00 19 /min [facility] Body height 2022-03-20 19:54:00 157.5 cm [facility] Body weight 2022-03-20 19:54:00 69.854 kg [facility] BMI 2022-03-20 19:54:00 28.17 kg/m2 [facility] Systolic blood pressure 2021-12-02 20:20:00 159 mm[Hg] [facility] Diastolic blood pressure 2021-12-02 20:20:00 68 mm[Hg] [facility] Heart rate 2021-12-02 20:20:00 86 /min [facility] Body temperature 2021-12-02 20:20:00 37.17 Nicol [facility] Respiratory rate 2021-12-02 20:20:00 18 /min [facility] Body height 2021-12-02 20:20:00 157.5 cm [facility] Body weight 2021-12-02 20:20:00 71.215 kg [facility] BMI 2021-12-02 20:20:00 28.72 kg/m2 [facility] Oxygen saturation in Arterial blood by Pulse oximetry 2021-12-02 20:20:00 96 /min [facility] Systolic blood pressure 2021-09-04 18:47:00 161 mm[Hg] [facility] Diastolic blood pressure 2021-09-04 18:47:00 81 mm[Hg] [facility] Heart rate 2021-09-04 18:47:00 71 /min [facility] Respiratory rate 2021-09-04 18:47:00 18 /min [facility] Oxygen saturation in Arterial blood by Pulse oximetry 2021-09-04 18:47:00 97 /min [facility] Body temperature 2021-09-04 16:03:00 37.5 Nicol [facility] Body height 2021-09-04 16:03:00 157.5 cm [facility] Body weight 2021-09-04 16:03:00 71.215 kg [facility] BMI 2021-09-04 16:03:00 28.72 kg/m2 [facility] Systolic blood pressure 2021-06-13 19:40:00 151 mm[Hg] [facility] Diastolic blood pressure 2021-06-13 19:40:00 87 mm[Hg] [facility] Heart rate 2021-06-13 19:33:00 91 /min [facility] Body temperature 2021-06-13 19:33:00 36.61 Nicol [facility] Respiratory rate 2021-06-13 19:33:00 16 /min [facility] Body height 2021-06-13 19:33:00 157.5 cm [facility] Body weight 2021-06-13 19:33:00 71.305 kg [facility] BMI 2021-06-13 19:33:00 28.75 kg/m2 [facility] Oxygen saturation in Arterial blood by Pulse oximetry 2021-06-13 19:33:00 95 /min [facility] Procedures Procedure Date / Time Performed Performing Clinician Source URINE CULTURE 2024-06-13 16:44:00 Richard Bautista [facility] POCT URINALYSIS W/O SPECIFIC GRAVITY 2024-06-13 16:09:00 Richard Bautista [facility] OP CORRESPONDENCE 2022-06-13 05:01:00 Doctor Prerna ssigned, [place] [facility] RAPID STREP SCREEN FOR GROUP A 2022-04-05 20:56:00 Malorie De La O [facility] CONSENT/REFUSAL FOR DIAGNOSIS AND TREATMENT 2022-04-05 20:44:25 Doctor Unassigned, [place] [facility] ASSIGNMENT OF BENEFITS 2021-12-02 20:27:27 Docto r Unassigned, [place] [facility] CONSENT/REFUSAL FOR DIAGNOSIS AND TREATMENT 2021-12-02 19:59:35 Doctor Unassigned, [place] [facility] COMP. METABOLIC PANEL ([id number]) 2021-09-04 16:51:00 Vin Ken [facility] CBC WITH DIFF 2021-09-04 16:51:[address] [facility] URINALYSIS 2021-09-04 16:35:00 Vin Ken [facility] CONSENT/REFUSAL FOR DIAGNOSIS AND TREATMENT 2021-09-04 15:52:55 Doctor Unassigned, [place] [facility] ASSIGNMENT OF BENEFITS 2021-06-29 18:36:20 Docto r Unassigned, [place] [facility] Encounters Start Date/Time End Date/Time Encounter Type Admission Type Attending [facility] Facility Care Department Encounter ID Source 2024-06-26 11:04:59 Outpatient CESILIA ALVAREZ [facility] [id number] [facility] 2024-07-15 00:00:00 2024-07-15 00:00:00 [facility] [id number] [facility] 2024-07-02 13:40:00 2024-07-02 14:00:00 [facility] [id number] 350.1.13.10 4.2.7.2.686 [id number] [facility] 2024-07-02 13:40:00 2024-07-02 13:40:00 [facility] [id number] 2024-06-26 08:30:00 2024-06-26 10:11:15 Outpatient CESILIA ALVAREZ [facility] [id number] [facility] 2024-06-26 08:30:00 2024-06-26 10:11:15 Office Visit Cesilia Bean [facility] 1..840.114 350.1.13.10 4.2.7.2.686 [id number] [facility] 2024-06-25 00:00:00 2024-06-25 13:11:55 Telephone Richard Bautista [facility] [id number] 350.1.13.10 4.2.7.2.686 [id number] [facility] 2024-06-19 00:00:00 2024-06-19 15:23:40 Telephone Richard Bautista [facility] [id number] 350.1.13.10 4.2.7.2.686 [id number] [facility] 2024-06-18 00:00:00 2024-06-18 15:19:01 Telephone Richard Bautista [facility] 1.20.114 350.1.13.10 4.2.7.2.686 [id number] [facility] 2024-06-13 11:15:00 2024-06-13 11:40:27 Outpatient R MICHELE RICHARD [facility] [id number] [facility] 2024-06-13 11:15:00 2024-06-13 11:40:27 Office Visit Richard Bautista [facility] 1.2840.114 350.1.13.10 4.2.7.2.686 [id number] [facility] 2022-12-19 00:00:00 2022-12-19 00:00:00 Outpatient GC_GCBZW_Ka luz_S [facility] [id number] [facility] 2022-06-13 00:00:00 2022-06-13 00:00:00 Orders Only Doctor Unassigned, [place] [facility] 1.2840.114 350.1.13.10 4.2.7.2.686 [id number] [facility] 2022-06-12 00:00:00 2022-06-12 00:00:00 [facility] [id number] 350.1.13.10 4.2.7.2.686 [id number] [facility] 2022-04-05 14:55:00 2022-04-05 15:21:00 Emergency X MALORIE DE LA O [facility] ERT [id number] [facility] 2022-04-05 14:55:00 2022-04-05 15:21:00 Emergency Malorie De La O [facility] [id number] 350.1.13.10 4.2.7.2.686 [id number] [facility] 2022-03-20 13:45:00 2022-03-20 14:15:00 Office Visit Sangeeta Snyder [facility] [id number] 350.1.13.10 4.2.7.2.686 [id number] [facility] 2022-03-20 13:45:00 2022-03-20 13:45:00 [facility] [id number] [facility] 2021-12-13 00:00:00 2021-12-13 00:00:00 Telephone Sangeeta Snyder [facility] 1.2.840.114 350.1.13.10 4.2.7.2.686 [id number] [facility] 2021-12-02 15:22:00 2021-12-02 15:34:00 Emergency KERRI NORRIS [facility] ERT [id number] [facility] 2021-12-02 15:22:00 2021-12-02 15:34:00 Emergency Macias, Kerri [facility] 1.2.840.114 350.1.13.10 4.2.7.2.686 [id number] [facility] 2021-09-04 11:04:00 2021-09-04 13:48:00 Emergency X VIN KEN [facility] ERT [id number] [facility] 2021-09-04 11:04:00 2021-09-04 13:48:00 Emergency Vin Ken [facility] 1.2.840.114 350.1.13.10 4.2.7.2.686 [id number] [facility] 2021-06-29 13:37:33 2021-06-29 23:59:00 Outpatient R ELBERTCAROL ANNN [facility] [id number] [facility] 2021-06-29 13:37:33 2021-06-29 23:59:00 Hospital Encounter Bernadine Boswell [facility] 1.2.840.114 350.1.13.10 4.2.7.2.686 [id number] [facility] 2021-06-29 00:00:00 2021-06-29 00:00:00 Orders Only Doctor Unassigned, [place] [facility] 1.2.840.114 350.1.13.10 4.2.7.2.686 [id number] [facility] 2021-06-13 14:00:00 2021-06-13 15:05:56 Office Visit ElbertCarol Annn [facility] 1.2.840.114 350.1.13.10 4.2.7.2.686 [id number] [facility] 2021-06-13 14:00:00 2021-06-13 15:05:56 Outpatient R ELBERT BERNADINE [facility] [id number] [facility] 2021-06-13 14:00:00 2021-06-13 14:00:00 Outpatient R ELBERTCAROL ANNN [facility] [id number] Jesejaycee pena [facility] 2021-06-13 00:00:00 2021-06-13 00:00:00 Orders Only Doctor Unassigned, [place] [facility] 1.0.114 350.1.13.10 4.2.7.2.686 [id number] [facility] 2021-06-06 00:00:00 2021-06-06 00:00:00 Pre Visit Outreach Naeem Jeffriesher [facility] 1..114 350.1.13.10 4.2.7.2.686 [id number] [facility] 2021-04-09 13:43:00 2021-04-09 21:50:00 Emergency X Jorge YANG [facility] ERT [id number] [facility] 2021-04-09 13:43:00 2021-04-09 21:50:00 Emergency Jorge Yang [facility] 1..114 350.1.13.10 4.2.7.2.686 [id number] [facility] 2021-04-09 00:00:00 2021-04-09 00:00:00 Orders Only Doctor Unassigned, [place] [facility] 1.2.114 350.1.13.10 4.2.7.2.686 [id number] [facility] 2021-03-31 13:30:00 2021-03-31 13:30:00 Outpatient DENITA ISAACS [facility] [id number] [facility] 2021-03-27 00:00:00 2021-03-27 00:00:00 Letter (Out) Symone Blair [facility] 1..114 350.1.13.10 4.2.7.2.686 [id number] [facility] 2021-03-26 12:43:00 2021-03-26 13:31:00 Emergency X VIN KEN [facility] ERT [id number] [facility] 2021-03-26 12:43:00 2021-03-26 13:31:00 [facility] [facility] [id number] [facility] 2021-03-26 00:00:00 2021-03-26 00:00:00 Orders Only Doctor Unassigned, [place] [facility] [id number] [facility] 2019-02-04 08:48:00 2019-02-04 08:48:00 [facility] [id number] [facility] 2019-01-30 09:26:00 2019-01-30 09:26:00 [facility] [id number] [facility] 2019 09:47:00 2019 09:47:00 [facility] [id number] [facility] 2019-01-27 10:30:00 2019-01-27 10:30:00 [facility] [id number] [facility] Results Test Description Test Time Test Comments Results Result [facility] 17:33:56* Test Item Value Reference Range Interpretation Comme nts NA (test code = 6043673816) 140 mmol/L 135-145 K (test code = 0160774847) 4.3 mmol/L 3.5-5 CL (test code = 1882417582) 102 mmol/L 98-108 CO2 TOTAL (test code = 8249751344) 31 mmol/L 23-31 AGAP (test code = 8596437415) 2-16 BUN (test code = 6492498732) 17 mg/dL 7-23 GLUCOSE (test code = 9364062473) 113 mg/dL 70-110 H CREATININE (test code = 7925775742) 0.74 mg/dL 0.5-1.04 TOTAL BILI (test code = 9599697090) 0.4 mg/dL 0.1-1.1 CALCIUM (test code = 0955644252) 9.6 mg/dL 8.6-10.6 T PROTEIN (test code = 5282705856) 6.8 g/dL 6.3-8.2 ALBUMIN (test code = 2144814444) 4.0 g/dL 3.5-5 ALK PHOS (test code = 3549397669) 100 U/L 34-122 ALTv (test code = 1742-6) 30 U/L 5-35 AST(SGOT) (test code = 4424746127) 30 U/L 13-40 eGFR (test code = 6749123571) mL/min/1.73m2 FREDRICK (test code = FREDRICK) Association of Glomerular Filtration Rate (GFR) and Staging of Kidney Disease* + --+ --+ ------+| GFR (mL/min/1.73 m2) ?| With Kidney Damage ?| ?Without Kidney Damage+ --------+ --------+ +| ?>90 ?| ?Stage one ?| ? Normal ?+ ---+ ---+ -------+| ?60-89 ?| ?Stage two ?| ? Decreased GFR ? + --+ --+ ------+| ?30-59 ?| ?Stage three ?| ? Stage three ? + --+ --+ ------+| ?15-29 ?| ?Stage four ? | ? Stage four ?+ ---+ ---+ -------+| ?<15 (or dialysis) ? ?| ?Stage five ? | ? Stage five ?+ ---+ ---+ -------+ *Each stage assumes the associated GFR level has been in effect for at least three months. ?Stages 1 to 5, with or without kidney disease, indicate chronic kidney disease. Notes: Determination of stages one and two (with eGFR >59mL/min/1.73 m2) requires estimation of kidney damage for at least three months as defined by structural or functional abnormalities of the kidney, manifested by either:Pathological abnormalities or Markers of kidney damage (including abnormalities in the composition of the blood or urine or abnormalities in imaging tests). Lab Interpretation (test code = 06796-6) Abnormal [facility] WITH [id number] 17:21:56* Test Item Value Reference Range Interpretation Comme nts WBC (test code = 6690-2) See_Comment [Automated Protein Bar] The system which generated this result transmitted reference range: 4.30 - 11.10 10*3/?L. The reference range was not used to interpret this result as normal/abnormal. RBC (test code = 789-8) See_Comment [New Relic] The system which generated this result transmitted [...] 33.3 g/dL 31.6-35.1 RDW-SD (test code = 02702-1) 38.0 fL 39-49.9 L RDW-CV (test code = 788-0) 11.4 % 12-15.5 L PLT (test code = 777-3) See_Comment [Automated Protein Bar] The system which generated this result transmitted reference range: 166 - 358 10*3/?L. The reference range was not used to interpret this result as normal/abnormal. MPV (test code = 47813-3) 9.1 fL 9.5-12.9 L NRBC/100 WBC (test code = 9651653944) See_Comment [Automated me ssage] The system which generated this result transmitted reference range: 0.0 - 10.0 /100 WBCs. The reference range was not used to interpret this result as normal/abnormal. NRBC x10^3 (test code = 0336913508) See_Comment [Automated messa ge] The system which generated this result transmitted reference range: 10*3/?L. The reference range was not used to interpret this result as normal/abnormal. GRAN MAT (NEUT) % (test code = 770-8) 75.3 % IMM GRAN % (test code = 1121834558) 0.30 % LYMPH % (test code = 736-9) 14.0 % MONO % (test code = 5905-5) 7.2 % EOS % (test code = 713-8) 2.7 % BASO % (test code = 706-2) 0.5 % GRAN MAT x10^3(ANC) (test code = 2100684110) 7.45 10*3/uL 1.88-7.09 H IMM GRAN x10^3 (test code = 7925930968) 0.03 10*3/uL 0-0.06 LYMPH x10^3 (test code = 731-0) 1.38 10*3/uL 1.32-3.29 MONO x10^3 (test code = 742-7) 0.71 10*3/uL 0.33-0.92 EOS x10^3 (test code = 711-2) 0.27 10*3/uL 0.03-0.39 BASO x10^3 (test code = 704-7) 0.05 10*3/uL 0.01-0.07 Lab Interpretation (test code = 08938-0) Abnormal [facility] Notes Date/Time Note Provider Source 2024-06-25 13:04:51 Spoke with patient, name and verified. Patient states she did not take the Macrobid that was prescribed on 06/13/2024 due to reading the side effects and threw them away. Patient states she was out of town and continued having symptoms, so she decided to see another provider and was prescribed Cipro. Patient completed antibiotics last night and originally felt like she was still having some burning with urination. Patient states she decided to take cranberry pills today which have helped her lessen her symptoms. Confirmed previous urine culture was susceptible to Cipro. Patient denies fever and/or chills. Offered patient to come in to clinic to repeat the urine process. Patient opted to wait for her follow up tomorrow with Dr. Bean. Clarissa Newton MA [facility] 2024-06-25 09:26:23 Pt called stating she has a severe UTI. She states she's having issues w/her phone and sometimes it does not ring [id number] - [place] - [address] [facility] [employer] [address] [place] [id number] [facility] 2024-06-19 15:23:25 Noted. HAILEE SIFUENTES RN 06/19/2024 3:23 PM Hailee Sifuentes RN [facility] 2024-06-19 14:26:32 Pt called to notify provider she's out of town and was unable to take the prescribed medication for the UTI. Pt stated she saw a provider in [place] and they prescribed her ciprofloxacin [facility] 2024-06-18 15:15:38 Pt and pt's daughter were already advised this morning we could not call in Rx out of the state. ER precautions were given if pt symptoms worsen. Pt's daughter stated her mother did not start the Rx they would be back in town on Sunday and will machine pecan picker Rx then. Advised pt to call our office back if Haley no longer had Rx for machine pecan picker. Siobhan Sawyer MA 06/18/2024 3:18 PM Siobhan Saweyr MA [facility] 2024-06-18 14:38:08 Jayda Hernandez is a 74 year old female Patient is out of town and forgot her medication (Nitrofurantoin&Nit. Macrocryst (MACROBID) 100 mg capsule) at home. Would another refill to be sent to: [facility] [address] [place] [address] [address] [id number] [facility]"
--- NOTE | 2024-07-03 11:23 | RAD REPORT ---
EXAMINATION: ONE VIEW CHEST XR CLINICAL INDICATION: COUGH TECHNIQUE: Frontal chest projection is submitted. Examination is limited by patient positioning and t echnique. COMPARISON: No prior exam. FINDINGS: Interstitial markings are mildly prominent which can be seen in mild interstitial pulmonary edema or viral bronchitis. The heart is moderately enlarged. No displaced fractures identified.
--- NOTE | 2024-07-03 11:23 | RAD REPORT ---
EXAMINATION: US BILATERAL LOWER EXTREMITY VENOUS DOPPLER CLINICAL INDICATION: PAIN TECHNIQUE: Complete bilateral duplex sonography of the BILATERAL lower extremity veins was performed. The examination included compression for vein patency, color Doppler imaging and flow augmentation in response to distal compression of the distal external iliac, common femoral, femoral, popliteal, t ibial, and great and small saphenous veins. COMPARISON: No prior exam. FINDINGS: Duplex sonography testing of the veins of the BILATERAL lower extremity was performed. Color flow ray ging shows all veins to be compressible with svec-rs-togb color filling. Pulsatile and phasic flow is present within all lower extremity deep and superficial veins examined. IMPRESSION: There is no deep vein or superficial vein thrombosis.
[2024-07-03 11:42] LABS: Absolute Eosinophils 0.1 K/uL (0-0.5); Absolute Lymphocytes (CBC) 1.2 K/uL (0.7-4.9); Absolute Monocytes 0.6 K/uL (0.1-1.3); Absolute Neutrophil 6.6 K/uL (1.8-8.0); Basophils % 0.5 % (0-1.3); Hematocrit 43.4 % (36.0-45.0); Lymphocytes % 13.6 % (15.3-44.8); MCH 31.9 pg (27.0-35.0); MCHC 34.6 g/dL (32.0-36.0); MCV 92.2 fL (80-100); MPV 7.2 fL (7.6-11.3); Monocytes % 7.1 % (3.3-12.3); Neutrophils % 77.8 % (41.7-73.7); Nucleated Red Blood Cells % 0.1 % (0-0); Platelets 268 thou/uL (152-406); RBC Red Blood Cell Count 4.71 M/uL (3.86-4.86); Red Cell Distribution Width 12.3 % (12.1-15.2)
[2024-07-03 11:51] LABS: Protime INR 1.06
[2024-07-03 12:06] LABS: ALT/SGPT 27 U/L (13-56); AST/SGOT 24 U/L (15-37); Albumin 3.5 g/dL (3.4-5.0); Alkaline Phosphatase 87 U/L (45-117); Anion Gap 11.8 mEq/L (5.0-15.0); BUN Blood Urea Nitrogen 11 mg/dL (7-18); Bicarbonate 26 mEq/L (21-32); Bilirubin Total 0.4 mg/dL (0.2-1.0); Globulin 3.6 g/dL (2.3-3.5); Glomerular Filtration Rate 77 ml/min (=/>90); Glucose Level 105 mg/dL (74-106); Lipase 38 U/L (13-75); NT PRO-BNP 54 pg/mL (<125); Potassium 3.8 mEq/L (3.5-5.1); Protein, Total 7.1 g/dL (6.4-8.2); Sodium Level 139 mEq/L (136-145); Troponin High Sensitivity 16.6 pg/mL (<58.9)
[2024-07-03 12:11] LABS: Bilirubin Direct < 0.2 mg/dL (0-0.2); Bilirubin Indirect, Calculated 0.2 mg/dL (0.2-0.8)
--- NOTE | 2024-07-03 13:01 | EDPHYS ---
Physician Documentation [facility] Name: Jayda Hernandez Age: 74 yrs Sex: Female : 1950 Arrival Date: 07/03/2024 Time: 10:24 Bed 2 Private MD: ED Physician David Jacobson HPI: 07/03 12:53 This 74 yrs old Female presents to ER via Ambulatory with complaints of High ximena Blood Pressure, Leg Pain - RT. 12:53 The patient has elevated blood pressure and discovered this at home. Onset: The ximena symptoms/episode began/occurred this morning, today. Modifying factors: The symptoms are aggravated by activity, The symptoms are alleviated by remaining still. Associated signs and symptoms: The patient has no apparent associated signs or symptoms. Severity of symptoms: At its worst the blood pressure was mild, moderate, in the emergency department the blood pressure is improved, mildly. The patient has not experienced similar symptoms in the past. Historical: - Allergies: 10:53 Erythromycin; jl7 10:53 PENICILLINS; jl7 - PMHx: 10:53 Hypertension; Hypothyroidism; jl7 - PSHx: 10:53 Cholecystectomy; jl7 - Immunization history:: Adult Immunizations unknown. - Infectious Disease History:: Denies. - Social history:: Smoking status: Patient denies any tobacco usage or history of. - Family history:: not pertinent. ROS: 12:53 Constitutional: Negative for fever, chills, and weight loss, Eyes: Negative for injury, ximena pain, redness, and discharge, ENT: Negative for injury, pain, and discharge, Neck: Negative for injury, pain, and swelling, Cardiovascular: Negative for chest pain, palpitations, and edema, Respiratory: Negative for shortness of breath, cough, wheezing, and pleuritic chest pain, Abdomen/GI: Negative for abdominal pain, nausea, vomiting, diarrhea, and constipation, Back: Negative for injury and pain, : Negative for injury, bleeding, discharge, and swelling, MS/Extremity: Negative for injury and deformity, Skin: Negative for injury, rash, and discoloration, Neuro: Negative for headache, weakness, numbness, tingling, and seizure, Psych: Negative for depression, anxiety, suicide ideation, homicidal ideation, and hallucinations, Allergy/Immunology: Negative for hives, rash, and allergies, Endocrine: Negative for neck swelling, polydipsia, polyuria, polyphagia, and marked weight changes, Hematologic/Lymphatic: Negative for swollen nodes, abnormal bleeding, and unusual bruising, Exam: 12:54 Constitutional: This is a well developed, well nourished patient who is awake, alert, ximena and in no acute distress. Head/Face: Normocephalic, atraumatic. Eyes: Pupils equal round and reactive to light, extra-ocular motions intact. Lids and lashes normal. Conjunctiva and sclera are non-icteric and not injected. Cornea within normal limits. Periorbital areas with no swelling, redness, or edema. ENT: Nares patent. No nasal discharge, no septal abnormalities noted. Tympanic membranes are normal and external auditory canals are clear. Oropharynx with no redness, swelling, or masses, exudates, or evidence of obstruction, uvula midline. Mucous membranes moist. Neck: Trachea midline, no thyromegaly or masses palpated, and no cervical lymphadenopathy. Supple, full range of motion without nuchal rigidity, or vertebral point tenderness. No Meningismus. Chest/axilla: Normal chest wall appearance and motion. Nontender with no deformity. No lesions are appreciated. Cardiovascular: Regular rate and rhythm with a normal S1 and S2. No gallops, murmurs, or rubs. Normal PMI, no JVD. No pulse deficits. Respiratory: Lungs have equal breath sounds bilaterally, clear to auscultation and percussion. No rales, rhonchi or wheezes noted. No increased work of breathing, no retractions or nasal flaring. Abdomen/GI: Soft, non-tender, with normal bowel sounds. No distension or tympany. No guarding or rebound. No evidence of tenderness throughout. Back: No spinal tenderness. No costovertebral tenderness. Full range of motion. Skin: Warm, dry with normal turgor. Normal color with no rashes, no lesions, and no evidence of cellulitis. MS/ Extremity: Pulses equal, no cyanosis. Neurovascular intact. Full, normal range of motion., bilateral aka Neuro: Awake and alert, GCS 15, oriented to person, place, time, and situation. Cranial nerves II-XII grossly intact. Motor strength 5/5 in all extremities. Sensory grossly intact. Cerebellar exam normal. Normal gait. Psych: Awake, alert, with orientation to person, place and time. Behavior, mood, and affect are within normal limits. 12:54 ECG was reviewed by the Attending Physician. Vital Signs: 10:49 BP 178 / 87; Pulse 91; Resp 17; Temp 98.5; Pulse Ox 97% ; Weight 68.95 kg; Height 5 ft. jl7 2 in. ; Pain 0/10; 12:30 BP 164 / 82; Pulse 84; Resp 16; Pulse Ox 97% on R/A; ph 13:26 BP 158 / 78; Pulse 84; Resp 18; Temp 97.9; Pulse Ox 98% on R/A; ph 10:49 Body Mass Index 27.80 (68.95 kg, 157.48 cm) jl7 10:49 Pain Scale: Adult jl7 MDM: 10:32 Medical Screening Exam initiated [facility] 12:57 Differential diagnosis: hypertensive crisis, Malignant HTN. Data reviewed: vital signs, [facility] nurses notes, lab test result(s), EKG, radiologic studies, plain films. Consideration of Admission/Observation Escalation of care including admission/observation considered. I considered the following discharge prescriptions or medication management in the emergency department Medications were administered in the Emergency Department. See MAR. Independent interpretation of the following test(s) in the Emergency Department EKG: See my EKG interpretation above. Test considered but Not performed: Ultrasound no 2 d echo. Historians other than the Patient: pt well informed. Care significantly affected by the following chronic conditions: Hypertension, Obesity. 07/03 10:34 Order name: Basic Metabolic Panel; Complete Time: 12:46 ximena 07/03 10:34 Order name: CBC with Diff; Complete Time: 12:03 07/03 10:34 Order name: LFT's; Complete Time: 12:46 07/03 10:34 Order name: Magnesium; Complete Time: 12:46 07/03 10:34 Order name: NT PRO-BNP; Complete Time: 12:46 [facility] 07/03 10:34 Order name: PT-INR; Complete Time: 12:03 07/03 10:34 Order name: Troponin HS; Complete Time: 12:46 ximena 07/03 10:34 Order name: Lipase; Complete Time: 12:46 [facility] 07/03 10:34 Order name: XRAY Chest (1 view); Complete Time: 12:03 07/03 10:34 Order name: US Extremity Venous W Compression Satya; Complete Time: 12:03 [facility] 07/03 10:34 Order name: Cardiac monitoring; Complete Time: 11:39 [facility] 07/03 10:34 Order name: EKG - Nurse/Tech; Complete Time: 11:39 [facility] 07/03 10:34 Order name: IV Saline Lock; Complete Time: 11:39 [facility] 07/03 10:34 Order name: Labs collected and sent; Complete Time: 11:39 [facility] 07/03 10:34 Order name: O2 Per Protocol; Complete Time: 11:39 [facility] 07/03 10:34 Order name: O2 Sat Monitoring; Complete Time: 11:39 [facility] EC:54 Rate is 80 beats/min. Rhythm is regular. QRS [place] is Normal. SC interval is normal. QRS ximena interval is normal. QT interval is normal. No Q waves. T waves are Normal. No ST changes noted. Clinical impression: Normal ECG and NSR w/ Non-specific ST/T Changes. Interpreted by me. Reviewed by me. Administered Medications: 13:14 Not Given (Physician Discretion): ns 0.9% 1000 ml IV at 125 ml/hr once aa5 Disposition Summary: 07/03/24 13:00 Discharge Ordered Notes: Location: Home ximena Problem: new ximena Symptoms: have improved ximena Condition: Stable ximena Diagnosis - Essential (primary) hypertension ximena - Pain in right leg ximena Followup: ximena - With: Private Physician - When: 2 - 3 days - Reason: Recheck today's complaints, Continuance of care, Re-evaluation by your physician Followup: ximena - With: Caleb Varma MD - When: 2 - 3 days - Reason: Recheck today's complaints, Re-evaluation by your physician Discharge Instructions: - Discharge Summary Sheet ximena - Hypertension, Adult ximena - Musculoskeletal Pain ximena - Hypertension, Adult, Xwtz-hi-Snhs ximena - How to Take Your Blood Pressure, Ploo-lr-Bjcz ximena - Aspirin and Your Heart ximena - Managing Your Hypertension ximena Forms: - Medication Reconciliation Form ximena - Antibiotic Education ximena - Prescription Opioid Use ximena - Patient Portal Instructions ximena - Leadership Thank You Letter ximena Signatures: Dispatcher [employer] David Chew MD MD cha Leal, Jahala, RN RN jl7 Berta Bryant RN aa5 Corrections: (The following items were deleted from the chart) 10:35 10:34 BASIC METABOLIC PANEL+C.LAB.BRZ ordered. EDMS EDMS 10:35 10:34 CBC+H.LAB.BRZ ordered. EDMS EDMS 10:35 10:35 HEPATIC FUNCTION+C.LAB.BRZ ordered. EDMS EDMS 10:35 10:35 MAGNESIUM+C.LAB.BRZ ordered. EDMS EDMS 10:35 10:35 PROBNP+C.LAB.BRZ ordered. EDMS EDMS 10:35 10:35 PROTIME (+INR)+COAG.LAB.BRZ ordered. EDMS EDMS 10:35 10:35 Troponin High Sensitivity+C.LAB.BRZ ordered. EDMS EDMS 10:35 10:35 LIPASE+C.LAB.BRZ ordered. EDMS EDMS 10:35 10:35 UA Rfx Neo Cult if indicated+U.LAB.BRZ ordered. EDMS EDMS 10:35 10:35 Chest Single View+RAD.RAD.BRZ ordered. EDMS EDMS 10:35 10:35 Extrem Venous W Compression Satya+US.RAD.BRZ ordered. EDMS EDMS
--- NOTE | 2024-07-03 13:01 | ER ---
Nurse's Notes [facility] Name: Jayda Hernandez Age: 74 yrs Sex: Female : 1950 Arrival Date: 07/03/2024 Time: 10:24 Bed 2 Private MD: Diagnosis: Essential (primary) hypertension;Pain in right leg Presentation: 07/03 10:49 Chief complaint: Patient states: BP was 190 systolic yesterday, hx of htn, takes jl7 Amlodipine 2.5mg, has a new Rx ready to be picked up increasing the dose to Amlodipine 10 mg. Reports right leg pain yesterday, resolved at this point. Reports feeling like a crick in the left side of neck, also resolved. Coronavirus screen: At this time, the client does not indicate any symptoms associated with coronavirus-19. Ebola Screen: No symptoms or risks identified at this time. Initial Sepsis Screen: Does the patient meet any 2 criteria? No. Patient's initial sepsis screen is negative. Does the patient have a suspected source of infection? No. Patient's initial sepsis screen is negative. Risk Assessment: Do you want to hurt yourself or someone else? Patient reports no desire to harm self or others. Onset of symptoms is unknown. 10:49 Method Of Arrival: Ambulatory jl7 10:49 Acuity: MACHO 3 jl7 Triage Assessment: 10:53 General: Appears in no apparent distress. uncomfortable, Behavior is calm, cooperative, jl7 appropriate for age. Pain: Denies pain. Historical: - Allergies: 10:53 Erythromycin; jl7 10:53 PENICILLINS; jl7 - PMHx: 10:53 Hypertension; Hypothyroidism; jl7 - PSHx: 10:53 Cholecystectomy; jl7 - Immunization history:: Adult Immunizations unknown. - Infectious Disease History:: Denies. - Social history:: Smoking status: Patient denies any tobacco usage or history of. - Family history:: not pertinent. Screenin:30 [facility] ED Fall Risk Assessment (Adult) History of falling in the last 3 months, aa5 including since admission No falls in past 3 months (0 pts) Confusion or Disorientation No (0 pts) Intoxicated or Sedated No (0 pts) Impaired Gait No (0 pts) Mobility Assist Device Used No (0 pt) Altered Elimination No (0 pt) Score/Fall Risk Level 0 - 2 = Low Risk Oriented to surroundings, Maintained a safe environment, Educated pt \T\ family on fall prevention, incl call for assistance when getting out of bed, Assessed \T\ reinforced patient's understanding of fall precautions. Abuse screen: Denies threats or abuse. Nutritional screening: No deficits noted. Tuberculosis screening: No symptoms or risk factors identified. Assessment: 11:30 General: Appears comfortable, Behavior is calm, cooperative. Pain: Denies pain. Neuro: aa5 Level of Consciousness is awake, alert, obeys commands, Oriented to person, place, time, situation. Cardiovascular: Heart tones S1 S2 present Edema is absent. Rhythm is sinus rhythm. Respiratory: Reports shortness of breath Airway is patent Respiratory effort is even, unlabored, Respiratory pattern is regular, symmetrical, Breath sounds are clear bilaterally. GI: No signs and/or symptoms were reported involving the gastrointestinal system. : No signs and/or symptoms were reported regarding the genitourinary system. EENT: No signs and/or symptoms were reported regarding the EENT system. Derm: Skin is pink, warm \T\ dry. Musculoskeletal: Range of motion: intact in all extremities. 12:30 Reassessment: Patient is alert, oriented x 3, equal unlabored respirations, skin aa5 warm/dry/pink. Pt ambulatory to restroom to provide urine specimen. . Vital Signs: 10:49 BP 178 / 87; Pulse 91; Resp 17; Temp 98.5; Pulse Ox 97% ; Weight 68.95 kg; Height 5 ft. jl7 2 in. ; Pain 0/10; 12:30 BP 164 / 82; Pulse 84; Resp 16; Pulse Ox 97% on R/A; ph 13:26 BP 158 / 78; Pulse 84; Resp 18; Temp 97.9; Pulse Ox 98% on R/A; ph 10:49 Body Mass Index 27.80 (68.95 kg, 157.48 cm) jl7 10:49 Pain Scale: Adult jl7 ED Course: 10:28 Patient arrived in ED. cj3 10:32 David Jacobson MD is Attending Physician. ximena 10:53 Triage completed. jl7 10:53 Arm band placed on right wrist. jl7 10:55 Berta Bryant, CAMILO is Primary Nurse. aa5 11:05 XRAY Chest (1 view) In Process Unspecified. EDMS 11:19 US Extremity Venous W Compression Satya In Process Unspecified. EDMS 11:30 Patient has correct armband on for positive identification. Placed in gown. Bed in low aa5 position. Call light in reach. Side rails up X 1. Client placed on continuous cardiac and pulse oximetry monitoring. NIBP monitoring applied. case monitor on. Pulse ox on. NIBP on. 11:35 Initial lab(s) drawn, by me, sent to lab. EKG done, by ED staff, reviewed by David Jacobson MD. Inserted saline lock: 20 gauge in right forearm, using aseptic technique. Blood collected. Flushed with 10 mL NS. 12:31 No provider procedures requiring assistance completed. aa5 13:00 Caleb Varma MD is Referral Physician. [facility] 13:27 IV discontinued, intact, bleeding controlled, No redness/swelling at site. Pressure ph dressing applied. Administered Medications: 13:14 Not Given (Physician Discretion): ns 0.9% 1000 ml IV at 125 ml/hr once aa5 Medication: 12:31 VIS not applicable for this client. aa5 Outcome: 13:00 Discharge ordered by . [facility] 13:27 Discharged to home ambulatory, ph 13:27 Condition: good 13:27 Discharge instructions given to patient, Instructed on discharge instructions, follow up and referral plans. Demonstrated understanding of instructions, follow-up care, 13:30 Patient left the ED. ph Signatures: Dispatcher [employer] David Chew MD MD cha Calderon, Audri RN CAMILO aa5 Bettina Mart RN RN Lisa Arevalo RN RN toña7 Becky Last 3
[2024-07-03 13:51] VITALS: BP 158/78; TEMP 97.9; O2SAT 98
--- NOTE | 2024-07-07 16:55 | EKG ---
Test Date: 2024-07-03 Test Time: 11:26:36 Python Consultant: SAUNDRA MEASUREMENT RESULTS: Intervals: Rate: 80 VA: 134 QRSD: 74 QT: 384 QTc: 442 [place]: P: -2 VA: 134 QRS: 58 T: 36 INTERPRETIVE STATEMENTS: Normal sinus rhythm Possible Anterior infarct, age undetermined Abnormal ECG Compared to ECG 03/15/2024 10:30:59 Myocardial infarct finding now present T-wave abnormality no longer present Prolonged QT interval no longer present Electronically Signed On 07-07-24 16:50:01 CDT by Joaquim Gannon
== END 2024-07-03 13:30 | disposition home or self-care (01) ==
LOC: ER 10:24
DX: I10 Essential (primary) hypertension (principal); M79.604 Pain in right leg
CPT/HCPCS: 36415; 71045; 80048; 80076; 83690; 83735; 83880; 84484; 85025; 85610; 93005; 93970; 99284

== ENCOUNTER 2024-12-08 11:05 | Emergency (ER) | payer OTHER ==
--- NOTE | 2024-12-08 15:10 | ER ---
Nurse's Notes [facility] Name: Jayda Hernandez Age: 74 yrs Sex: Female : 1950 Arrival Date: 12/08/2024 Time: 11:05 Bed 2 Private MD: Diagnosis: Left arm pain Presentation: 12/08 11:54 Chief complaint: Patient states: PAIN IN LT ARM THAT BEGAN IN MAY AFTER A STEROID dd2 SHOT, WENT AWAY FOR A COUPLE MONTHS BUT WORSENED 3 WEEKS AGO, AND UNDERARM PAIN BEGAN 2 DAYS AGO. PT C/O STINGING SHARP PAIN IN THE AXILLA. Coronavirus screen: At this time, the client does not indicate any symptoms associated with coronavirus-19. Ebola Screen: No symptoms or risks identified at this time. Initial Sepsis Screen: Does the patient meet any 2 criteria? No. Patient's initial sepsis screen is negative. Does the patient have a suspected source of infection? No. Patient's initial sepsis screen is negative. Risk Assessment: Do you want to hurt yourself or someone else? Patient reports no desire to harm self or others. Onset of symptoms is unknown. 11:54 Method Of Arrival: Ambulatory dd2 11:54 Acuity: MACHO 3 dd2 Triage Assessment: 11:57 General: Appears in no apparent distress. Behavior is calm, cooperative, appropriate dd2 for age. Pain: Complains of pain in left arm Pain currently is 0 out of 10 on a pain scale. at worst was 8 out of 10 on a pain scale. Musculoskeletal: Circulation, motion, and sensation intact. Range of motion: limited in left shoulder Reports pain in left arm. Historical: - Allergies: 11:57 Erythromycin; dd2 11:57 PENICILLINS; dd2 - PMHx: 11:57 Hypertension; Hypothyroidism; Diverticulitis; dd2 - PSHx: 11:57 Cholecystectomy; Total abdominal hysterectomy; COLON SX; dd2 - Immunization history:: Adult Immunizations unknown. - Infectious Disease History:: Denies. - Social history:: Smoking status: Patient denies any tobacco usage or history of. Screenin:24 [facility] ED Fall Risk Assessment (Adult) History of falling in the last 3 months, db including since admission No falls in past 3 months (0 pts) Confusion or Disorientation No (0 pts) Intoxicated or Sedated No (0 pts) Impaired Gait No (0 pts) Mobility Assist Device Used No (0 pt) Altered Elimination No (0 pt) Score/Fall Risk Level 0 - 2 = Low Risk Oriented to surroundings, Maintained a safe environment. Abuse screen: Denies threats or abuse. Denies injuries from another. Nutritional screening: No deficits noted. Tuberculosis screening: No symptoms or risk factors identified. Assessment: 15:24 Reassessment: Patient appears in no apparent distress at this time. Patient and/or db family updated on plan of care and expected duration. Pain level reassessed. Patient is alert, oriented x 3, equal unlabored respirations, skin warm/dry/pink. General: Appears in no apparent distress. comfortable, Behavior is calm, cooperative. Pain: Complains of pain in left arm. Neuro: Level of Consciousness is awake, alert, obeys commands, Oriented to person, place, time, situation. Respiratory: Airway is patent Respiratory effort is even, unlabored, Respiratory pattern is regular, symmetrical. Vital Signs: 11:54 BP 163 / 83; Pulse 74; Resp 16; Temp 98.2; Pulse Ox 98% on R/A; Weight 72.12 kg; Height dd2 5 ft. 2 in. ; Pain 0/10; 15:20 BP 156 / 75; Pulse 69; Resp 16; Pulse Ox 99% ; db 11:54 Body Mass Index 29.08 (72.12 kg, 157.48 cm) dd2 11:54 Pain Scale: Adult dd2 ED Course: 11:09 Patient arrived in ED. al6 11:12 Elsie Morrow MD is Attending Physician. sp3 11:57 Triage completed. dd2 11:57 Arm band placed on right wrist. dd2 14:28 Fariba Joy, CAMILO is Primary Nurse. db 15:10 Efren Lindsey MD is Referral Physician. sp3 15:24 Patient has correct armband on for positive identification. Side rails up X 1. Provided db Education on: DISCHARGE, PRESCRIPTIONS AND FOLLOWUP. Pulse ox on. NIBP on. Warm blanket given. Pillow given. 15:24 No provider procedures requiring assistance completed. Patient did not have IV access db during this emergency room visit. Administered Medications: No medications were administered Medication: 15:24 VIS not applicable for this client. db Outcome: 15:10 Discharge ordered by . sp3 15:24 Discharged to home ambulatory, db 15:24 Condition: stable 15:24 Discharge instructions given to patient, Instructed on discharge instructions, follow up and referral plans. Prescriptions given X 2, 15:26 Patient left the ED. db Signatures: Elsie Morrow MD MD sp3 Fariba Joy RN RN db CARLOS BETHEA RN RN dd2 [id number] Corrections: (The following items were deleted from the chart) 12:01 11:54 Chief complaint: Patient states: PAIN IN LT ARM THAT BEGAN IN MAY AFTER A dd2 STEROID SHOT, WENT AWAY FOR A COUPLE MONTHS BUT WORSENED 33 WEEKS AGO, AND UNDERARM PAIN BEGAN 2 DAYS AGO. PT C/O STINGING SHARP PAIN IN THE AXILLA dd2
--- NOTE | 2024-12-08 15:10 | EDPHYS ---
Physician Documentation [facility] Name: Jayda Hernandez Age: 74 yrs Sex: Female : 1950 Arrival Date: 12/08/2024 Time: 11:05 Bed 2 Private MD: ED Physician Elsie Morrow HPI: 12/08 14:35 This 74 yrs old Female presents to ER via Ambulatory with complaints of Arm Pain. sp3 14:35 74-year-old female with history of hypertension, hypothyroidism, diverticulitis sp3 presents to the ED with chief complaints of left distal humerus and lateral epicondyle pain for greater than 1 month. Patient states it comes and goes and she has been taking NSAIDs [id number]. She states that her prior doctor gave her steroid injections there and she believes that may be contributing to her pain. She denies any upper extremity pain, shoulder pain, back pain, chest pain, shortness of breath, jaw pain, other anginal equivalents, nausea, vomiting, diarrhea, syncope, near syncope, or any other signs or symptoms on ROS at this time. She also denies any direct trauma. 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 Historical: - Allergies: 11:57 Erythromycin; dd2 11:57 PENICILLINS; dd2 - PMHx: 11:57 Hypertension; Hypothyroidism; Diverticulitis; dd2 - PSHx: 11:57 Cholecystectomy; Total abdominal hysterectomy; COLON SX; dd2 - Immunization history:: Adult Immunizations unknown. - Infectious Disease History:: Denies. - Social history:: Smoking status: Patient denies any tobacco usage or history of. ROS: 14:37 Constitutional: Negative for fever, chills, and weight loss, Eyes: Negative for injury, sp3 pain, redness, and discharge, ENT: Negative for injury, pain, and discharge, Neck: Negative for injury, pain, and swelling, Cardiovascular: Negative for chest pain, palpitations, and edema, Respiratory: Negative for shortness of breath, cough, wheezing, and pleuritic chest pain, Abdomen/GI: Negative for abdominal pain, nausea, vomiting, diarrhea, and constipation, Back: Negative for injury and pain, Skin: Negative for injury, rash, and discoloration, Neuro: Negative for headache, weakness, numbness, tingling, and seizure, Psych: Negative for depression, anxiety, suicide ideation, homicidal ideation, and hallucinations, Allergy/Immunology: Negative for hives, rash, and allergies, Endocrine: Negative for neck swelling, polydipsia, polyuria, polyphagia, and marked weight changes, Hematologic/Lymphatic: Negative for swollen nodes, abnormal bleeding, and unusual bruising, 14:37 All other systems are negative, Exam: 14:37 Constitutional: This is a well developed, well nourished patient who is awake, alert, sp3 and in no acute distress. Head/Face: Normocephalic, atraumatic. Eyes: Pupils equal round and reactive to light, extra-ocular motions intact. Lids and lashes normal. Conjunctiva and sclera are non-icteric and not injected. Cornea within normal limits. Periorbital areas with no swelling, redness, or edema. ENT: Nares patent. No nasal discharge, no septal abnormalities noted. External auditory canals are clear. Oropharynx with no redness, swelling, or masses, exudates, or evidence of obstruction, uvula midline. Mucous membranes moist. Neck: Trachea midline, no thyromegaly or masses palpated, and no cervical lymphadenopathy. Supple, full range of motion without nuchal rigidity, or vertebral point tenderness. No Meningismus. Chest/axilla: Normal chest wall appearance and motion. Nontender with no deformity. No lesions are appreciated. Cardiovascular: Regular rate and rhythm with a normal S1 and S2. No gallops, murmurs, or rubs. Normal PMI, no JVD. No pulse deficits. Respiratory: Lungs have equal breath sounds bilaterally, clear to auscultation and percussion. No rales, rhonchi or wheezes noted. No increased work of breathing, no retractions or nasal flaring. Abdomen/GI: Soft, non-tender, with normal bowel sounds. No distension or tympany. No guarding or rebound. No evidence of tenderness throughout. Back: No spinal tenderness. No costovertebral tenderness. Full range of motion. Skin: Warm, dry with normal turgor. Normal color with no rashes, no lesions, and no evidence of cellulitis. Neuro: Awake and alert, GCS 15, oriented to person, place, time, and situation. Cranial nerves II-XII grossly intact. Motor strength 5/5 in all extremities. Sensory grossly intact. Cerebellar exam normal. Normal gait. Psych: Awake, alert, with orientation to person, place and time. Behavior, mood, and affect are within normal limits. 14:37 Musculoskeletal/extremity: Pain is reproducible just proximal to the lateral epicondyle of the left upper extremity. Distal neurovascular exam is normal. Patient has full range of motion in shoulder and elbow and hand. Pronation and supination is intact and does not elicit pain.. 15:09 ECG was reviewed by the Attending Physician. EKG demonstrates normal sinus rhythm 65 sp3 bpm with normal intervals, normal QRS, normal axis and nonspecific diffuse ST/T changes without evidence of acute ischemia. Vital Signs: 11:54 BP 163 / 83; Pulse 74; Resp 16; Temp 98.2; Pulse Ox 98% on R/A; Weight 72.12 kg; Height dd2 5 ft. 2 in. ; Pain 0/10; 15:20 BP 156 / 75; Pulse 69; Resp 16; Pulse Ox 99% ; db 11:54 Body Mass Index 29.08 (72.12 kg, 157.48 cm) dd2 11:54 Pain Scale: Adult dd2 MDM: 11:52 Medical Screening Exam initiated sp3 14:38 Data reviewed: vital signs, nurses notes, EKG. ED course: 74-year-old female with point sp3 tenderness of her left upper extremity for greater than 1 month. No direct trauma noted. X-ray not indicated. I advised her that we will obtain a quick EKG to assess for any cardiac possibility however she will likely need outpatient follow-up with orthopedics. We will discharge her on tramadol and diclofenac with referral to Dr. Lindsey. She understands to return here for any chest pain, shortness of breath, upper extremity pain, jaw pain or any concerns she may have.. 12/08 14:34 Order name: EKG; Complete Time: 14:35 sp3 12/08 14:34 Order name: EKG - Nurse/Tech; Complete Time: 15:07 sp3 Administered Medications: No medications were administered Disposition Summary: 12/08/24 15:10 Discharge Ordered Notes: Location: Home sp3 Condition: Stable sp3 Diagnosis - Left arm pain sp3 Followup: sp3 - With: Efren Lindsey MD - When: Upon discharge from the Emergency Department - Reason: Recheck today's complaints Discharge Instructions: - Discharge Summary Sheet sp3 - Musculoskeletal Pain sp3 Forms: - Medication Reconciliation Form sp3 - Antibiotic Education sp3 - Prescription Opioid Use sp3 - Patient Portal Instructions sp3 - Leadership Thank You Letter sp3 Prescriptions: - Diclofenac Sodium 75 mg Oral Tablet Sustained Release - take 1 tablet ORAL route 2 times per day; 30 tablet; Refills: 0, Product sp3 Selection Permitted - Tramadol 50 mg Oral Tablet - take 1 tablet ORAL route every 8 hours as needed; 12 tablet; Refills: 0, sp3 Product Selection Permitted Signatures: Elsie Morrow MD MD sp3 Fariba Joy, RN RN db CARLOS BETHEA RN RN dd2
[2024-12-08 19:34] VITALS: BP 163/83; TEMP 98.2; O2SAT 98
== END 2024-12-08 15:26 | disposition home or self-care (01) ==
LOC: ER 11:05
DX: M79.602 Pain in left arm (principal); I10 Essential (primary) hypertension
CPT/HCPCS: 93005; 99283